=== PATIENT | male | born 1930 | race Caucasian/White ===

== ENCOUNTER 2017-06-30 16:08 | Inpatient (IN) ==
[2017-06-30] MEDS ORDERED: IOPAMIDOL 100 ML BOTTLE IJ ONE ×2 (16:09→22:11)
--- NOTE | 2017-06-30 16:27 | Emergency Department Note ---
GI Bleed HPI - History of Present Illness MD complaint: blood streaked stool Onset (ago): week(s) (2 weeks) <Guillermo Mares - Last Filed: 06/30/17 17:05> - General Source: patient, family, EMS Mode of arrival: EMS <Bob Ponce Inocencia - Last Filed: 07/01/17 06:58> - General Chief complaint: Rectal Bleed Stated complaint: n/v/d, bloody stools Time Seen by Provider: 06/30/17 16:22 - History of Present Illness HPI Narrative: This is an 87 year old male that is coming into the ER with c/o of bright red bleeding x 2 weeks as well as intermittent loss of vision x 3 days. Describes it as intermittent. denies abdominal pain .Denies diarrhea. Denies constipation. Denies hx of hemmorhoids, Crohns, UC, celiac, IBS, gastric ulcers or diverticulitis. Denies fevers, chills, night sweats, or unexpected weight loss. Positive for nausea. reports last colonoscopy was at about the age of 62. Patient reports had vision loss in left eye from thursday to this morning. can see fine without an issue currently at this moment. Was supposed to see his eye doctor today but didn't feel well. came into the ER via ambulance. (Guillermo Mares) - Related Data Home Medications Medication Instructions Recorded Confirmed aspirin 81 mg tablet,delayed 81 mg PO QDAY 11/08/15 06/09/17 release vitamin D, fish oil PO 11/08/15 06/09/17 Previous Rx's Medication Instructions Recorded albuterol sulfate HFA 90 2 inh INHALATION Q6H PRN #8.5 g 09/03/16 mcg/actuation aerosol inhaler atenolol 50 mg tablet 50 mg PO Q12H 90 Days #180 tab 12/29/16 lovastatin 20 mg tablet 20 mg PO QDAY 90 Days #90 tab 03/31/17 omeprazole 20 mg capsule,delayed 20 mg PO QDAY 90 Days #90 cap 05/05/17 release Allergies Allergy/AdvReac Type Severity Reaction Status Date / Time No Known Drug Allergies Allergy Verified 06/30/17 16:16 Review of Systems All systems ED: reviewed and negative except as stated. <Bob Ponce - Last Filed: 07/01/17 06:58> Past Medical History <Guillermo Mares - Last Filed: 06/30/17 17:05> - Social History smoking status: Former smoker <Bob Ponce - Last Filed: 07/01/17 06:58> - Past Medical History [facility] Narrative: Medical History Gastroesophageal reflux disease (Chronic) Hyperlipidemia (Chronic) Atherosclerotic heart disease (Chronic) Cerebrovascular disease (Chronic) Primary osteoarthritis of right knee (Acute) Abdominal aortic aneurysm (Chronic) Pneumonia (Chronic) Pancreatitis (Chronic) Neuropathy (Chronic 09/13/14) Lumbago (Chronic) Hypertension, essential (Chronic 09/13/14) CAD (coronary artery disease) (Chronic) Anemia (Chronic 11/10/14) Past Surgical History S/P CABG x 3 (Chronic) History of right-sided carotid endarterectomy (Chronic) History of left-sided carotid endarterectomy (Chronic) History of hernia repair (Chronic) History of cholecystectomy (Chronic 12/21/13) (Bob Ponce) Physical Exam - Rectal Exam Rectal exam: Present: heme (+) stool, bloody stool, tenderness <Guillermo Mares - Last Filed: 06/30/17 17:05> - General Limitations: no limitations General appearance: alert - Head Head exam: atraumatic - Eye Eye exam: Present: normal appearance - ENT ENT exam: normal exam - Neck Neck exam: Present: normal inspection - Chest Chest inspection: Present: normal inspection - Respiratory Respiratory exam: Present: normal lung sounds bilaterally - Cardiovascular Cardiovascular exam: Present: regular rate, normal rhythm, normal heart sounds - Abdominal Exam Abdominal exam: Present: soft, tenderness. Absent: distention, guarding, rebound, rigidity Abdominal tenderness: Present: diffuse, mild - Neurological Exam Neurological exam: Present: alert - Psychiatric Psychiatric exam: Present: normal affect, normal mood - Skin Skin exam: Present: warm, dry, intact <Bob Ponce - Last Filed: 07/01/17 06:58> Vital Signs Temperature 97.4 F 06/30/17 16:10 Pulse Rate 77 06/30/17 16:10 Respiratory Rate 16 06/30/17 16:10 Blood Pressure 199/90 06/30/17 16:10 Pulse Oximetry (%) 96 06/30/17 16:10 Temperature 98.1 F 07/01/17 03:50 Pulse Rate 75 07/01/17 03:50 Respiratory Rate 18 06/30/17 22:10 Blood Pressure 159/82 07/01/17 03:50 Pulse Oximetry (%) 99 07/01/17 03:50 GI Bleed - Lab Data Result diagrams: 06/30/17 16:24 06/30/17 16:23 <Guillermo Mares - Last Filed: 06/30/17 17:05> - Lab Data Lab results reviewed: Yes I reviewed the patient's lab results. Result diagrams: 07/01/17 03:35 07/01/17 03:35 - Radiology Data Radiology results reviewed: Yes I reviewed the patient's radiology results. <Bob Ponce - Last Filed: 07/01/17 06:58> - MDM Narrative Medical decision making narrative: CT scan shows suspicion for a sigmoid carcinoma. Patient's history is a little concerning for posterior circulation stroke. Symptoms started 2 days ago. He still continues to have some dizziness. We will admit him to the hospital Dr. Whaley. (Bob Ponce) - Lab Data Lab Results 06/30/17 06/30/17 Range/Units 16:23 16:24 WBC 9.1 (4.5-11.0) K/mcL RBC 3.21 L (4.50-5.90) M/mcL Hgb 10.9 L (13.5-16.5) g/dL Hct 31.6 L (41.0-55.0) % MCV 98.5 (80.0-100.0) fL MCH 33.8 (26.0-34.0) pg MCHC 34.3 (31.0-36.0) g/dL RDW 15.1 H (11.5-14.5) % Plt Count 210 (140-440) K/mcL MPV 8.8 (7.4-10.4) fL Gran % 87.9 H (38.0-78.0) % Lymph % (Auto) 8.7 L (15.5-49.0) % [place] % (Auto) 2.6 (1.0-12.0) % Eos % (Auto) 0.8 (0.0-7.0) % Baso % (Auto) 0 (0.0-2.0) % Gran # 8.0 (1.8-8.0) K/mcL Lymph # (Auto) 0.8 L (1.5-4.8) K/mcL [place] # (Auto) 0.2 (0.1-0.9) K/mcL Eos # (Auto) 0.1 (0.0-0.7) K/mcL Baso # (Auto) 0 (0.0-0.3) K/mcL Sodium 141 (133-145) mmol/L Potassium 4.6 (3.3-5.1) mmol/L Chloride 102 (96-108) mmol/L Carbon Dioxide 26 (22-30) mmol/L Anion Gap 13.0 (8-16) BUN 27 H (8-23) mg/dl Creatinine 1.0 (0.7-1.2) mg/dl GFR Calculation 68 Glucose 118 H (70-105) mg/dL Calcium 9.7 (8.6-10.4) mg/dl Total Bilirubin 0.4 (0.0-1.0) mg/dL AST 22 (0-37) U/l ALT 24 (0-40) U/l Alkaline Phosphatase 48 (39-117) U/L Total Protein 7.6 (5.9-8.4) gm/dL Albumin 4.2 (3.2-5.2) gm/dL Globulin 3.4 (2.2-3.7) gm/dL Albumin/Globulin Ratio 1.2 (1.0-2.3) Disposition Pt seen by EYEWEAR CONSULTANT/PA only: No <Guillermo Mares - Last Filed: 06/30/17 17:05> Pt seen by EYEWEAR CONSULTANT/PA only: No <Bob Ponce - Last Filed: 07/01/17 06:58> Clinical Impression: 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 Order labs(CBC, CMP c.) Order abdominal X ray (Guillermo Mares) Disposition: Xfer As Inpt ([facility]) Condition: Undetermined
[2017-06-30 16:48] LABS: Basophils # (Auto) 0 K/mcL (0.0-0.3); Basophils % (Auto) 0 % (0.0-2.0); Eosinophils # (Auto) 0.1 K/mcL (0.0-0.7); Eosinophils % (Auto) 0.8 % (0.0-7.0); Granulocytes % (Auto) 87.9 % (38.0-78.0); Lymphocytes # (Auto) 0.8 K/mcL (1.5-4.8); Lymphocytes % (Auto) 8.7 % (15.5-49.0); Mean Cell Volume 98.5 fL (80.0-100.0); Mean Corpuscular HGB Conc 34.3 g/dL (31.0-36.0); Mean Corpuscular Hemoglobin 33.8 pg (26.0-34.0); Monocytes # (Auto) 0.2 K/mcL (0.1-0.9); Monocytes % (Auto) 2.6 % (1.0-12.0); Platelet Count 210 K/mcL (140-440); RBC 3.21 M/mcL (4.50-5.90); Red Cell Distribution Width 15.1 % (11.5-14.5)
[2017-06-30 17:05] LABS: ALT/SGPT 24 U/l (0-40); Albumin 4.2 gm/dL (3.2-5.2); Albumin/Globulin Ratio 1.2 (1.0-2.3); Alkaline Phosphatase 48 U/L (39-117); Blood Urea Nitrogen 27 mg/dl (8-23)
[2017-06-30] MEDS ORDERED: ONDANSETRON 4 MG/2 ML VIAL IV ONE (17:21)
--- NOTE | 2017-06-30 17:24 | XRay Report ---
CLINICAL INFORMATION: Bloody stools COMPARISON: 12/20/2013 FINDINGS: The stool gas pattern is normal. There is no free air, soft tissue mass or organomegaly. Surgical clips in the upper abdomen. IMPRESSION: Negative Interpreted and Authenticated by: Jose Juárez 06/30/17
[2017-06-30] MEDS ORDERED: 0.9 % SODIUM CHLORIDE 1,000 ML IV ONE (18:05)
[2017-06-30] MEDS ORDERED: PROMETHAZINE 25 MG/ML VIAL IV ONE (18:58)
[2017-06-30] MEDS ORDERED: PROMETHAZINE 50 MG/ML AMPUL IM ONE (19:08)
--- NOTE | 2017-06-30 21:21 | Internal Med History&Physical ---
Medical - H&P: HPI Patient information: Note initiated : 06/30/17 at 9:18 pm Service Date, if different from initiated Date: [] Patient: Lele Terrell 87 y/o M admitted on for n/v/d, bloody stools. Chief Complaint: [] Chief complaint: Dizziness, rectal bleeding. History of present illness: Mr. Terrell is a 87 year old man with a past history of coronary disease and cerebrovascular disease, status post stroke in 2000, who was in his normal state of health until 2 days prior to admission. That morning when he got up and looked in the mirror, he said he could not see the left side of his face. He thought there was something wrong with the vision in his left eye. He was subsequently evaluated at an emergency room in [facility]. They apparently did a dry head CT, and decided that he may have had amaurosis fugax or other eye specific problem. They advised him to follow-up with his eye doctor. Since that time, he has had ongoing intermittent episodes of what he describes as blurry vision, which she thinks is in the left visual field, and also dizziness and nausea. He cannot decide if he has vertigo or not, but says he definitely has been off balance and has felt lightheaded. This morning, he again had worsening dizziness associated with 4 episodes of nausea and vomiting. His family insisted that he come to the emergency room for evaluation. He also notes that he is having some occasional symptoms in his left eye on and off for about 20 years, mainly including squiggly lines. As he is checked by an eye doctor annually. He actually went to a football game after his ER visit, and says he did fine. However when it came to drive home from [place] back to [place], he decided he might not be safe to drive, so had 1 of his children come and get him. When he presented to the emergency room this evening, he also discussed that he had been seeing blood in his stools. He ended up having a CT scan of his abdomen, which shows a possible mass in his sigmoid colon. When the attending physician then heard his entire story, he wanted to do a CT angiogram of the patient's head and neck, but by then he had already had IV dye once, and they felt it was la not to give him a second dose tonight. Otherwise, the patient is having continued episodes of dizziness, nausea and vomiting here in the emergency room, which has not been resolved with medications. He notes he occasionally has chills and night sweats, which she has had for a while. He has an occasional dull headache. Said he was treated for a cough about 2 weeks ago with antibiotics. Occasionally has some lower sternal discomfort which he blames on reflux. He otherwise denies new ear symptoms, sore throat or dysphagia, swollen glands, chest pain or palpitations, shortness of breath or wheezing, abdominal pain, diarrhea, constipation, dysuria. He is now being admitted for monitoring, regarding possible recent stroke. We will hydrate him overnight, and get CT angiograms in the morning. We will also attempt to control his nausea this evening. Also, because of his abnormal CAT scan, I have asked Dr. Robb of general surgery to evaluate him as well. Medical History Gastroesophageal reflux disease (Chronic) Hyperlipidemia (Chronic) Atherosclerotic heart disease (Chronic) Cerebrovascular disease, history of stroke in 2000, history of bilateral carotid endarterectomies. 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 Etiology, attends a neuropathy clinic in [place], "hot feet...for 20 years" Lumbago (Chronic) Hypertension, essential (Chronic 09/13/14) CAD (coronary artery disease), status post coronary artery bypass. Anemia (Chronic 11/10/14) Surgical History S/P CABG x 3 (Chronic) 2000 History of right-sided carotid endarterectomy (Chronic) 2009 History of left-sided carotid endarterectomy (Chronic) 2001 History of hernia repair (Chronic) x3 History of cholecystectomy (Chronic 12/21/13) Medication List albuterol sulfate HFA 90 mcg/actuation 2 inhalations Inhalation Q6H PRN aspirin 81 mg PO QDAY atenolol 50 mg PO Q12H 90 days lovastatin 20 mg PO QDAY 90 days omeprazole 20 mg PO QDAY 90 days [vitamin D, fish oil PO] Allergies/Adverse Reactions No Known Intolerances Allergy (Unknown, Verified 06/09/17 16:35) none No to Iodine Allergy (Unknown, Uncoded 06/09/17 16:35) Unknown No to Latex Allergy (Unknown, Uncoded 06/09/17 16:35) none NONE Allergy (Unknown, Uncoded 06/09/17 16:35) none Family history: Patient believes his mother had hypertension. His father committed suicide at age 55 after being diagnosed with a brain tumor. Other at age 55 with leukemia. Another brother at age 83 with multiple medical problems and diabetes. Third brother at age 91 with Alzheimer's disease. Social History marital status: ,occupational status: retired smoking status: Former smoker, he quit 53 years ago. Does not use alcohol or drugs. He lives with his . Medical - H&P: Meds Home Medications Medication Instructions Recorded Confirmed Type aspirin 81 mg tablet,delayed 81 mg PO QDAY 11/08/15 06/09/17 History release vitamin D, fish oil PO 11/08/15 06/09/17 History albuterol sulfate HFA 90 2 inh INHALATION Q6H PRN #8.5 g 09/03/16 06/09/17 Rx mcg/actuation aerosol inhaler atenolol 50 mg tablet 50 mg PO Q12H 90 Days #180 tab 12/29/16 06/09/17 Rx lovastatin 20 mg tablet 20 mg PO QDAY 90 Days #90 tab 03/31/17 06/09/17 Rx omeprazole 20 mg capsule,delayed 20 mg PO QDAY 90 Days #90 cap 05/05/17 Rx release Allergies Allergy/AdvReac Type Severity Reaction Status Date / Time No Known Drug Allergies Allergy Verified 06/30/17 16:16 Medical - H&P: Exam - Constitutional Vitals: Temp Pulse Resp BP Pulse Ox 97.4 F 72 15 121/50 100 06/30/17 16:10 06/30/17 20:48 06/30/17 18:46 06/30/17 20:46 06/30/17 20:48 On exam, he is a well-developed well-nourished elderly man in no acute distress. Head: Normocephalic, atraumatic. Eyes: Pupils are about 3 mm, and only sluggishly reactive to light. EOMI, anicteric. Ears: TMs and canals are clear. Pharynx: Is clear. Teeth are in good repair. Neck: Is supple, without obvious lymphadenopathy, JVD, thyromegaly. He does have bilateral carotid bruits, which may be radiating from his heart murmur. He has bilateral CEA scars. Cardiac: Shows regular rate and rhythm with normal S1 and S2. There is a 3 out of 6 to 4 out of 6 systolic ejection murmur heard throughout the precordium. No rubs or gallops are noted. Lungs: Are clear to auscultation, without rales, rhonchi, wheezes. Abdomen: Is soft and nontender without obvious masses. I did not hear bruits or feel a mass. Extremities: Show trace ankle edema, but no cyanosis or clubbing. Pulses are intact. Neurologic: Patient is alert and oriented 3. He seems a bit forgetful at times. Mood is calm and cooperative. Cranial nerves: Appear intact. Visual mack appear full to confrontation. Motor exam is grossly nonfocal. Medical - H&P: Reslt - Labs CBC & Chem 7: 06/30/17 16:24 06/30/17 16:23 Labs: Short CBC 06/30/17 Range/Units 16:24 WBC 9.1 (4.5-11.0) K/mcL Hgb 10.9 L (13.5-16.5) g/dL Hct 31.6 L (41.0-55.0) % Plt Count 210 (140-440) K/mcL BMP 06/30/17 16:23 Sodium 141 Potassium 4.6 Chloride 102 Carbon Dioxide 26 BUN 27 H Creatinine 1.0 Glucose 118 H Calcium 9.7 Liver Function 06/30/17 Range/Units 16:23 Total Bilirubin 0.4 (0.0-1.0) mg/dL AST 22 (0-37) U/l ALT 24 (0-40) U/l Alkaline Phosphatase 48 (39-117) U/L Albumin 4.2 (3.2-5.2) gm/dL CT of the abdomen and pelvis: By verbal report, shows sigmoid mass, and also possible thickening of either the stomach or the distal esophagus.. Abdominal x-ray: Was read as normal. EKG shows normal sinus rhythm rate of about 75. T waves are inverted inferiorly. T waves are somewhat hyper acute in leads V2 to V3. We do not seem to have an old tracing to compare. Dry head CT done in [place] about 2 days ago was reported as normal. Medical - H&P: A/P (1) Sigmoid thickening Current visit: Yes Status: Acute (2) Dizziness, nonspecific Current visit: Yes Status: Acute (3) Atherosclerotic heart disease Current visit: No Status: Chronic (4) Cerebrovascular disease Current visit: No Status: Chronic (5) Hypertension, essential Current visit: No Status: Chronic (6) Anemia Current visit: No Status: Acute - Narrative A/P Narrative: #1. Neurologic. This patient presents with subacute change in vision, associated with dizziness and nausea. Symptoms are ongoing. Symptoms did not resolve in the ER. The ER physician wanted to do further stroke workup, but the patient had already received IV dye for his GI study. -We will admit him to observation, and monitor on telemetry. -Hydrate overnight, and then consider CT angiogram of the neck and brain in the morning. -Patient has known previous carotid disease, status post endarterectomy. 2. GI. Patient presents with rectal bleeding, and new onset anemia. Abdominal CT reportedly shows a sigmoid mass. I have asked Dr. Robb of surgery to evaluate him in the morning. -Check follow-up labs, and transfuse if he drops significantly. Because of coronary history, we would want to keep his hemoglobin above 8. History of GERD. Continue omeprazole. 3. Cardiac. History of coronary disease. Continue aspirin, atenolol, lovastatin. Aspirin may need to be held if Dr. Robb decides to do any surgeries. 4. CODE STATUS: 5. DVT prophylaxis: Subcu heparin, unless bleeding becomes more of an issue. 6. Pulmonary.? History of asthma. Continue as needed albuterol. This visit took approximately 60 minutes, to review the patient's old records, review his case with the ER MD, interview and examine him, and write orders.
[2017-06-30] MEDS ORDERED: ACETAMINOPHEN 325 MG TABLET PO PRN (22:25)
[2017-06-30] MEDS ORDERED: ALBUTEROL SULFATE 2.5 MG/3 ML NEBULIZER NEB PRN (22:25)
[2017-06-30] MEDS ORDERED: MAGNESIUM HYDROXIDE 30 ML ORAL.SUSP PO PRN (22:25)
[2017-06-30] MEDS ORDERED: DOCUSATE SODIUM 100 MG CAPSULE PO PRN (22:25)
[2017-06-30] MEDS ORDERED: ONDANSETRON 4 MG/2 ML VIAL ONE (22:43)
[2017-06-30] MEDS: HEPARIN 5,000 UNIT/ML VIAL SQ SCH (23:55)
[2017-06-30] MEDS: POTASSIUM CHLORIDE 20 MEQ in 0.45 % SODIUM CHLORIDE 1,000 ML IV SCH (23:56)
[2017-07-01] MEDS ORDERED: POTASSIUM CHLORIDE 20 MEQ/10 ML VIAL IV ONE (00:01)
[2017-07-01 05:17] LABS: Basophils # (Auto) 0 K/mcL (0.0-0.3); Basophils % (Auto) 0.1 % (0.0-2.0); Eosinophils # (Auto) 0 K/mcL (0.0-0.7); Eosinophils % (Auto) 0.6 % (0.0-7.0); Granulocytes % (Auto) 74.7 % (38.0-78.0); Lymphocytes % (Auto) 16.7 % (15.5-49.0); Mean Cell Volume 98.9 fL (80.0-100.0); Mean Corpuscular HGB Conc 33.3 g/dL (31.0-36.0); Monocytes # (Auto) 0.5 K/mcL (0.1-0.9); Monocytes % (Auto) 7.9 % (1.0-12.0); Platelet Count 195 K/mcL (140-440); Red Cell Distribution Width 14.9 % (11.5-14.5)
[2017-07-01 05:38] LABS: C-Reactive Protein < 0.3 mg/dl (0.0-0.8); HDL Cholesterol 41 mg/dl (>40); LDL Cholesterol,Calculated 63 mg/dl (SEE CHART)
[2017-07-01 05:39] LABS: ALT/SGPT 18 U/l (0-40); Albumin 3.5 gm/dL (3.2-5.2); Albumin/Globulin Ratio 1.3 (1.0-2.3); Alkaline Phosphatase 40 U/L (39-117); Bilirubin,Direct < 0.2 mg/dL (0.0-0.3); Blood Urea Nitrogen 22 mg/dl (8-23); Gamma Glutamyl Transpeptidase 15 U/L (8-61)
[2017-07-01] MEDS: HEPARIN 5,000 UNIT/ML VIAL SQ SCH ×2 (07:14→21:34)
[2017-07-01] MEDS: ONDANSETRON 4 MG/2 ML VIAL IV PRN (07:14)
--- NOTE | 2017-07-01 10:25 | XRay Report ---
CLINICAL INFORMATION: Preop COMPARISON: 10/16/2016 FINDINGS: Sternotomy/CABG changes noted. The heart is borderline enlarged, but unchanged. Mediastinum and pulmonary vessels are normal. Lungs are clear. No effusions. IMPRESSION: No acute disease is - stable since 10/16/2016 stable Interpreted and Authenticated by: Jose Juárez 07/01/17
--- NOTE | 2017-07-01 13:01 | Cat Scan Report ---
CLINICAL INFORMATION: Mild GI bleeding COMPARISON: Abdomen and pelvic CT from 02/06/2010 TECHNIQUE: Oral contrast, MR view, was poorly tolerated by the patient with a small amount was ingested. 90 cc to 300 were injected intravenously and 2.5 mm helical slices were obtained from the mid heart through the subtrochanteric regions at both 20 and 70 seconds. Following reconstruction, sagittal, coronal axial reformatted images were processed and reviewed at soft tissue and bone windows. Coronal mip images were also processed. FINDINGS: Lung bases show scattered scarring and/or atelectasis. There is a 20 mm pleural-based nodule in the lingular region which is new. There is also an 11 mm granuloma in the paramediastinal right middle lobe region which is stable. The heart is mildly enlarged with heavy calcification of mitral annulus and small amounts in the aortic valve. There is no definite hiatal hernia. The distal esophagus is unremarkable Images through the abdomen show minimal fatty change within the liver. The gallbladder is surgically absent. Intrahepatic and common bile ducts are normal caliber: CBD is 5 mm. Both kidneys, adrenal glands, spleen, pancreas are normal. Fusiform infrarenal abdominal aortic aneurysm has decreased 3.5 to 3.9 cm in maximal diameter since the 2010 study. There is heavy calcific plaque in the origins of the celiac, SMA and KEVIN which preclude stenosis grading. Images through the pelvis show the prostate is mildly enlarged: 4.6 x 5.2 x 3.7 cm. There are small diverticuli projecting from the lateral bladder base regions. Bladder is otherwise normal. Multiple sigmoid diverticuli appreciated. There is a 3.3 cm soft tissue density within the lumen of the mid sigmoid colon which is likely adherent stool rather than a mass such as colon carcinoma. Follow-up colonoscopy performed to confirm. The remainder of the colon, including the appendix, small bowel and stomach are unremarkable. Bone windows show only degenerative changes of the lower lumbar spine IMPRESSION: 1. No definite etiology identified to account for GI blood loss. A 3.3 cm intraluminal soft tissue density in the mid sigmoid colon is more likely stool than colon carcinoma. Follow-up colonoscopy to be performed 2. Infrarenal fusiform abdominal aortic aneurysm. Maximal AP diameter has increased from 3.5 cm a 3.9 cm [address] the [address] CT. consider follow ultrasound in one year 3. Mild prostate enlargement - stable 4. 20 mm well-circumscribed nodule in the lingula - new. It is likely a granuloma. Suggest follow-up chest x-ray in 3-4 months. Interpreted and Authenticated by: Jose Juárez 07/01/17
--- NOTE | 2017-07-01 13:10 | General Surgery Consult Note ---
History of Present Illness Patient information: Note initiated : 07/01/17 at 1:04 pm Service Date, if different from initiated Date: [] Patient: Lele Terrell 87 y/o M admitted on 06/30/17 for N/V/D, Bloody Stools/Lower GI Bleed, Poss Stroke. Chief Complaint: [] Reason for consult: other (Rectal bleeding) Requesting physician: Thania Thompson History of present illness: 87-year-old male who presents with a two-week history of lower abdominal pain. He also has had bright red blood in the stool about the same time. He has had 3 episodes of bright red blood in his stool since then. The last episode of bleeding was yesterday. He states that his stools are loose. He does not have pain with his bowel movements but he does notice some diffuse lower abdominal discomfort. He has a known history of diverticulosis with possible diverticulitis in the past. He had a CT of the abdomen which showed a possible mid sigmoid mass and extensive diverticulosis without evidence of diverticulitis. The CT also suggests that he has thickening at the GE junction and in the stomach that should need evaluation to rule out neoplasm. The patient has a history of chronic anemia which has not been evaluated. The patient states that on Thursday morning he noticed in the mirror that he could not see one half of his face. He was in [place] at the time and was seen in the emergency room and was told that he had some type of visual abnormality related to his left eye. Patient states that after leaving the emergency room he was able to see him for football game without difficulty. He did not have any mental lapses and he has not noticed any motor weakness in upper or lower extremities or in his face. He has had dizziness which started on yesterday. He attributes this to vertigo and states that he has had in the past. Associated with the vertigo he has episodes of nausea and vomiting. The vertigo appears to be positional and is reproducible. He had a normal CT and [place] and is scheduled to have a follow-up CT later today. Review of Systems - Constitutional lethargy, weight loss (5 pound weight loss), no fatigue, no frequent falls, no headache(s), no weakness - EENT Nose, mouth and throat: abnormal hearing, disequilibrium, dizziness, vertigo, no headache(s) - Cardiovascular lightheadedness, no chest pain at rest, no chest pain with activity, no dyspnea , no irregular heart rhythm, no palpatations, no slow heart rate - Respiratory no dyspnea, no dyspnea on exertion, no wheezing, no chest congestion - Gastrointestinal abdominal pain, change in bowel habits, diarrhea, hematochezia, loose stools, nausea, vomiting, no melena - Genitourinary urinary frequency, urinary urgency - Musculoskeletal arthralgias, back pain, myalgias, stiffness - Integumentary no changing lesions, no non-healing lesions, no pruritus, no rash - Neurological disequilibrium, dizziness, loss of vision, vertigo, other visual disturbances, no abnormal hearing, no abnormal speech, no confusion - Psychiatric no anxiety, no confusion, no depression, no memory loss - Endocrine no fatigue, no flushing, no polyuria - Hematologic/Lymphatic no easy bleeding, no easy bruising, no lymphadenopathy - Allergic/Immunologic no tongue swelling, no throat swelling, no uticaria, no wheezing, no lip swelling Past History Past medical history: Coronary artery disease status post three-vessel bypass Hypertension Peripheral neuropathy Abdominal aortic aneurysm 3.8 cm Gastroesophageal reflux disease Osteoarthritis Low back pain Chronic anemia Past surgical history: Coronary artery bypass graft 3 Cholecystectomy Bilateral inguinal hernia Bilateral carotid endarterectomy Past family history: Former smoker Denies alcohol use Denies drug use Medications and Allergies Home Medications Medication Instructions Recorded Confirmed Type aspirin 81 mg tablet,delayed 81 mg PO QDAY 11/08/15 07/01/17 History release albuterol sulfate HFA 90 2 inh INHALATION Q6H PRN #8.5 g 09/03/16 06/09/17 Rx mcg/actuation aerosol inhaler atenolol 50 mg tablet 50 mg PO Q12H 90 Days #180 tab 12/29/16 07/01/17 Rx lovastatin 20 mg tablet 20 mg PO QDAY 90 Days #90 tab 03/31/17 07/01/17 Rx omeprazole 20 mg capsule,delayed 20 mg PO QDAY 90 Days #90 cap 05/05/17 Rx release Acetaminophen [Tylenol] 650 mg PO Q4HP PRN 07/01/17 07/01/17 History Acetylcarnitine [Acetyl 1,000 mg PO DAILY 07/01/17 07/01/17 History l-Carnitine] Alpha Lipoic Acid 2 tab PO DAILY 07/01/17 07/01/17 History Black Finnegan Concentrate 2 cap PO DAILY 07/01/17 07/01/17 History Cider Vinegar [Apple Cider Vinegar] 900 mg PO DAILY 07/01/17 07/01/17 History Cyanocobalamin/Cobamamide [B-12 1 tab SL DAILY 07/01/17 07/01/17 History 5,000 Mcg Sublingual Tab] Cyanocobalamin/FA/Pyridoxine [B 1 tab PO DAILY 07/01/17 07/01/17 History Complex-Folic Acid Tablet] Gnc Herbal Plus Energy Formula 1 - 2 cap PO DAILY 07/01/17 07/01/17 History Gnc Scar Men 50 Plus 2 cap PO DAILY 07/01/17 07/01/17 History Ibuprofen [I-Prin] 400 mg PO PRN PRN 07/01/17 07/01/17 History [facility] Pure Wellness Factors 4 cap PO DAILY 07/01/17 07/01/[address] Savage Advanced 3 cap PO DAILY 07/01/17 07/01/17 History [place]-3/Dha/Epa/Fish Oil [Fish Oil 2 cap PO DAILY 07/01/17 07/01/17 History 1,000 mg Softgel] Papaya 2 each PO DAILY 07/01/17 07/01/17 History Ubidecarenone [Co Q-10] 400 mg PO DAILY 07/01/17 07/01/17 History Allergies Allergy/AdvReac Type Severity Reaction Status Date / Time No Known Drug Allergies Allergy Verified 06/30/17 16:16 Exam Temp Pulse Resp BP Pulse Ox 97.6 F 65 18 169/93 93 07/01/17 11:39 07/01/17 08:00 07/01/17 12:14 07/01/17 12:14 07/01/17 12:14 - General physical appearance well developed, well nourished, no distress - Eyes PERRL, normal ocular movement, other (I cannot detect any visual field defects) - ENT normal pinna, normal nares, normal mucosa, no hearing loss, no congestion - Head Head exam IM: Present: atraumatic, normal inspection, normocephalic - Neck no masses, no bruits, trachea midline, no lymphadectomy, no venous distension - Cardiovascular Cardiovascular exam IM: Present: normal rate and rhythm, RRR, +S1, +S2, systolic murmur (Grade 1 systolic ejection murmur). Absent: gallop, JVD, rubs - Respiratory normal expansion, normal respiratory effort, clear to percussion, clear to auscultation - Abdomen Abdomen: Present: soft, tender (Mild tenderness in lower quadrant right and suprapubic area; no left lower quadrant tenderness or mass noted), bowel sounds Hernia: Present: none - Genitourinary Present: normal penis with no external lesions - Rectum Rectum: Present: normal sphincter tone, no hemorrhoids, no tenderness, no masses , no bleeding, other (No palpable masses stool guaiac positive) - Integumentary Present: no rash, no growths, no abnormal pigmentation - Neurologic Present: normal coordination, normal sensation, other (No focal motor deficit in upper or lower extremities; no facial asymmetry; no sensory asymmetry) - Musculoskeletal Present: normal gait, normal posture - Psychiatric Present: oriented to time, oriented to person, oriented to place, speech is normal, memory intact Results - Labs 07/01/17 03:35 07/01/17 03:35 Abnormal lab results 06/30/17 06/30/17 07/01/17 Range/Units 16:23 16:24 03:35 RBC 3.21 L 2.80 L (4.50-5.90) M/mcL Hgb 10.9 L 9.2 L (13.5-16.5) g/dL Hct 31.6 L 27.7 L (41.0-55.0) % RDW 15.1 H 14.9 H (11.5-14.5) % Gran % 87.9 H (38.0-78.0) % Lymph % (Auto) 8.7 L (15.5-49.0) % Lymph # (Auto) 0.8 L 1.0 L (1.5-4.8) K/mcL ESR (0-15) mm/hr BUN 27 H (8-23) mg/dl Glucose 118 H (70-105) mg/dL 07/01/17 Range/Units 03:35 RBC (4.50-5.90) M/mcL Hgb (13.5-16.5) g/dL Hct (41.0-55.0) % RDW (11.5-14.5) % Gran % (38.0-78.0) % Lymph % (Auto) (15.5-49.0) % Lymph # (Auto) (1.5-4.8) K/mcL ESR 24 H (0-15) mm/hr BUN (8-23) mg/dl Glucose (70-105) mg/dL Diabetes panel 06/30/17 07/01/17 07/01/17 Range/Units 16:23 03:35 03:35 Sodium 141 141 (133-145) mmol/L Potassium 4.6 4.4 (3.3-5.1) mmol/L Chloride 102 105 (96-108) mmol/L Carbon Dioxide 26 25 (22-30) mmol/L BUN 27 H 22 (8-23) mg/dl Creatinine 1.0 0.9 (0.7-1.2) mg/dl Glucose 118 H 100 (70-105) mg/dL Calcium 9.7 8.9 (8.6-10.4) mg/dl AST 22 18 (0-37) U/l ALT 24 18 (0-40) U/l Alkaline Phosphatase 48 40 (39-117) U/L Total Protein 7.6 6.1 (5.9-8.4) gm/dL Albumin 4.2 3.5 (3.2-5.2) gm/dL Triglycerides 123 124 (<150) mg/dl HDL Cholesterol 41 (>40) mg/dl Calcium panel 06/30/17 07/01/17 Range/Units 16:23 03:35 Calcium 9.7 8.9 (8.6-10.4) mg/dl Phosphorus 3.6 (2.7-4.5) mg/dL Albumin 4.2 3.5 (3.2-5.2) gm/dL Pituitary panel 06/30/17 07/01/17 Range/Units 16:23 03:35 Sodium 141 141 (133-145) mmol/L Potassium 4.6 4.4 (3.3-5.1) mmol/L Chloride 102 105 (96-108) mmol/L Carbon Dioxide 26 25 (22-30) mmol/L BUN 27 H 22 (8-23) mg/dl Creatinine 1.0 0.9 (0.7-1.2) mg/dl Glucose 118 H 100 (70-105) mg/dL Calcium 9.7 8.9 (8.6-10.4) mg/dl Adrenal panel 06/30/17 07/01/17 Range/Units 16:23 03:35 Sodium 141 141 (133-145) mmol/L Potassium 4.6 4.4 (3.3-5.1) mmol/L Chloride 102 105 (96-108) mmol/L Carbon Dioxide 26 25 (22-30) mmol/L BUN 27 H 22 (8-23) mg/dl Creatinine 1.0 0.9 (0.7-1.2) mg/dl Glucose 118 H 100 (70-105) mg/dL Calcium 9.7 8.9 (8.6-10.4) mg/dl Total Bilirubin 0.4 0.3 (0.0-1.0) mg/dL AST 22 18 (0-37) U/l ALT 24 18 (0-40) U/l Alkaline Phosphatase 48 40 (39-117) U/L Total Protein 7.6 6.1 (5.9-8.4) gm/dL Albumin 4.2 3.5 (3.2-5.2) gm/dL All other labs normal. Assessment and Plan (1) Rectal bleeding Patient will need to have upper and lower endoscopy. He will also need to have a bowel prep prior to the studies being done. I will await until a decision has been made about his possible neurologic deficit. Status: Acute (2) Sigmoid thickening To be followed up with colonoscopy Status: Acute (3) CAD (coronary artery disease) Status: Chronic Qualifiers: Coronary Disease-Associated Artery/Lesion type: unspecified vessel or lesion type [place] vs. transplanted heart: [place] heart Associated angina: without angina Qualified Code(s): I25.10 - Atherosclerotic heart disease of [place] coronary artery without angina pectoris (4) Gastroesophageal reflux disease Status: Chronic Qualifiers: Esophagitis presence: esophagitis presence not specified Qualified Code(s) : K21.9 - Gastro-esophageal reflux disease without esophagitis (5) Hypertension, essential Status: Chronic
--- NOTE | 2017-07-01 13:14 | Internal Med Progress Note ---
Medical - PN: Subj Patient information: Note initiated : 07/01/17 at 1:14 pm Service Date, if different from initiated Date: [] Patient: Lele Terrell 87 y/o M admitted on 06/30/17 for N/V/D, Bloody Stools/Lower GI Bleed, Poss Stroke. Chief Complaint: [] Interval history: June 30, 2017: History of present illness: Mr. Terrell is a 87 year old man with a past history of coronary disease and cerebrovascular disease, status post stroke in 2000, who was in his normal state of health until 2 days prior to admission. That morning when he got up and looked in the mirror, he said he could not see the left side of his face. He thought there was something wrong with the vision in his left eye. He was subsequently evaluated at an emergency room in [facility]. They apparently did a dry head CT, and decided that he may have had amaurosis fugax or other eye specific problem. They advised him to follow-up with his eye doctor. Since that time, he has had ongoing intermittent episodes of what he describes as blurry vision, which she thinks is in the left visual field, and also dizziness and nausea. He cannot decide if he has vertigo or not, but says he definitely has been off balance and has felt lightheaded. This morning, he again had worsening dizziness associated with 4 episodes of nausea and vomiting. His family insisted that he come to the emergency room for evaluation. He also notes that he is having some occasional symptoms in his left eye on and off for about 20 years, mainly including squiggly lines. As he is checked by an eye doctor annually. He actually went to a football game after his ER visit, and says he did fine. However when it came to drive home from [place] back to [place], he decided he might not be safe to drive, so had 1 of his children come and get him. When he presented to the emergency room this evening, he also discussed that he had been seeing blood in his stools. He ended up having a CT scan of his abdomen, which shows a possible mass in his sigmoid colon. When the attending physician then heard his entire story, he wanted to do a CT angiogram of the patient's head and neck, but by then he had already had IV dye once, and they felt it was la not to give him a second dose tonight. Otherwise, the patient is having continued episodes of dizziness, nausea and vomiting here in the emergency room, which has not been resolved with medications. He notes he occasionally has chills and night sweats, which she has had for a while. He has an occasional dull headache. Said he was treated for a cough about 2 weeks ago with antibiotics. Occasionally has some lower sternal discomfort which he blames on reflux. He otherwise denies new ear symptoms, sore throat or dysphagia, swollen glands, chest pain or palpitations, shortness of breath or wheezing, abdominal pain, diarrhea, constipation, dysuria. He is now being admitted for monitoring, regarding possible recent stroke. We will hydrate him overnight, and get CT angiograms in the morning. We will also attempt to control his nausea this evening. Also, because of his abnormal CAT scan, I have asked Dr. Robb of general surgery to evaluate him as well. July 01: Patient believes his vision is better today, but he is still having some intermittent lightheadedness. He still has a slight headache. Radiology had sent the patient could not have a follow-up CT scan with dye for 24-48 hours, so we ordered an MR angiogram instead. Unfortunately the patient has severe claustrophobia, and could not tolerate being in the scanner very long, in spite of receiving IV Ativan. The images that were obtained did show both the right cerebellar and a right occipital infarct. They were not able to complete the imaging. These were suggestive of a posterior circulation problem. - Constitutional Vitals: Vital Signs Temp Pulse Resp BP Pulse Ox 97.6 F 65 18 169/93 93 07/01/17 11:39 07/01/17 08:00 07/01/17 12:14 07/01/17 12:14 07/01/17 12:14 Period Temp Pulse Resp BP Sys/Mcnamara Pulse Ox Last 24 Hr 97.4 F-98.1 F 65-86 15-22 121-199/50-101 85-100 Intake and Output 06/30/17 07/01/17 07/01/17 21:59 05:59 13:59 Intake Total 1000 / 1000 Output Total 650 / 650 Balance 1000 / 1000 -650 / -650 Weight 170 lb 188 lb 3.2 oz Intake & Output: Intake & Output 06/30/17 07/01/17 07/01/17 21:59 05:59 13:59 Intake Total 1000 / 1000 Output Total 650 / 650 Balance 1000 / 1000 -650 / -650 Weight 170 lb 188 lb 3.2 oz Intake: IV 1000 / 1000 Sodium Chloride 0.9% 1,000 ml @ 1000 / 1000 Wide Open IV BOLUS ONE Rx#: [id number] Output: Void Amount 650 / 650 This morning, he was awake and alert, in no acute distress. Neck is supple without obvious lymphadenopathy. Lungs are clear to auscultation. Cardiac exam shows regular rate and rhythm. Abdomen is soft and nontender. Extremities show no edema. Neurologic exam: Patient is alert and oriented, calm and cooperative. Vision to confrontation and peripheral mack appears fairly normal. Cranial nerves are grossly intact. Motor exam is grossly intact. Medical - PN: Obj Da - Labs CBC & Chem 7: 07/01/17 03:35 07/01/17 03:35 Labs: Abnormal Lab Results 07/01/17 07/01/17 06/30/17 03:35 03:35 16:24 RBC 2.80 L 3.21 L Hgb 9.2 L 10.9 L Hct 27.7 L 31.6 L RDW 14.9 H 15.1 H Gran % 87.9 H Lymph % (Auto) 8.7 L Lymph # (Auto) 1.0 L 0.8 L ESR 24 H BUN Glucose 06/30/17 16:23 RBC Hgb Hct RDW Gran % Lymph % (Auto) Lymph # (Auto) ESR BUN 27 H Glucose 118 H July 1: Pro time is normal at 13, PTT normal at 29 Total cholesterol is 128, LDL 63, HDL 41, triglycerides 120 MRI/MRA: (Partial): Formal report is pending. Verbal report indicates right occipital and right cerebellar infarcts. Both posterior circulation infarcts. Echocardiogram: Results pending. CEA is normal at 2.1 June 30: CT of the abdomen and pelvis: IMPRESSION: 1. No definite etiology identified to account for GI blood loss. A 3.3 cm intraluminal soft tissue density in the mid sigmoid colon is more likely stool than colon carcinoma. Follow-up colonoscopy to be performed 2. Infrarenal fusiform abdominal aortic aneurysm. Maximal AP diameter has increased from 3.5 cm a 3.9 cm since the [address] CT. consider follow ultrasound in one year 3. Mild prostate enlargement - stable 4. 20 mm well-circumscribed nodule in the lingula - new. It is likely a granuloma. Suggest follow-up chest x-ray in 3-4 months. Abdominal x-ray: Was read as normal. EKG shows normal sinus rhythm rate of about 75. T waves are inverted inferiorly. T waves are somewhat hyper acute in leads V2 to V3. We do not seem to have an old tracing to compare. Dry head CT done in [place] about 2 days ago was reported as normal. Chest x-ray: Sternotomy and CABG changes noted. Borderline cardiomegaly. Stable. Meds: Medications Acetaminophen (Tylenol) 650 mg PO Q6HP PRN PRN Reason: PAIN/FEVER > 101 Albuterol Sulfate (Ventolin) 2.5 mg NEB Q4HRT PRN PRN Reason: Shortness Of Breath Or Wheezing Docusate Sodium (Colace) 100 mg PO BID PRN PRN Reason: Constipation Heparin Sodium (Porcine) (Heparin) 5,000 unit SQ Q12 [facility] Last Admin: 07/01/17 07:14 Dose: 5,000 unit Potassium Chloride 20 meq/ (Sodium Chloride) 1,010 mls @ 75 mls/hr IV .[id number] [facility] Last Admin: 06/30/17 23:56 Dose: 75 mls/hr Magnesium Hydroxide (Milk Of Magnesia) 30 ml PO DAILYP PRN PRN Reason: Constipation Ondansetron HCl (Zofran) 4 mg IV Q4HP PRN PRN Reason: Nausea And Vomiting Last Admin: 07/01/17 07:14 Dose: 4 mg Promethazine HCl (Phenergan) 12.5 mg IV Q4-6HP PRN PRN Reason: Nausea And Vomiting Medical - PN: A/P - Time Spent With Patient Total time spent is greater than 50% in coordination of care (as documented) at patient's floor/unit and/or counseling patient: Greater than 35 minutes (1) Sigmoid thickening Status: Acute Current Visit: Yes (2) Dizziness, nonspecific Status: Acute Current Visit: Yes (3) Atherosclerotic heart disease Status: Chronic Current Visit: No (4) Cerebrovascular disease Status: Chronic Current Visit: No (5) Hypertension, essential Status: Chronic Current Visit: No (6) Anemia Status: Acute Current Visit: No - Narrative A/P Narrative: #1. Neurologic. This patient presents with subacute change in vision, associated with dizziness and nausea. -MRI today does confirm at least 2 acute strokes, and the right cerebellum and the right occipital lobe. MRI could not be completed due to patient's anxiety. We will attempt to do CT angiogram of the head and neck tomorrow, to get a more complete picture. I reviewed the findings this evening with the patient and his son and daughter- in-law. We will continue with aspirin, and Plavix to try to prevent further strokes, pending workup. 2. GI. Patient presents with rectal bleeding, and new onset anemia. Abdominal CT reportedly shows a sigmoid mass. Dr. Robb saw him today. Patient will require upper and lower endoscopy, once neurologic status is stable. History of GERD. Continue omeprazole. 3. Cardiac. History of coronary disease. Continue aspirin, atenolol, lovastatin. Aspirin may need to be held if Dr. Robb decides to do any surgeries. 4. CODE STATUS: 5. DVT prophylaxis: Subcu heparin, unless bleeding becomes more of an issue. 6. Pulmonary.? History of asthma. Continue as needed albuterol. Approximately 40 minutes was spent today, reviewing patient's test results, interviewing and examining him, meeting with the patient and his family twice, reviewing plan of care with staff, and writing orders. Medical - PN: Qual - VTE Deep Vein Thrombosis/Pulmonary Embolism Present on Admission: No
[2017-07-01] MEDS: PROMETHAZINE 25 MG/ML VIAL IV PRN (13:41)
[2017-07-01] MEDS: POTASSIUM CHLORIDE 20 MEQ in 0.45 % SODIUM CHLORIDE 1,000 ML IV SCH (13:41)
[2017-07-01] MEDS ORDERED: LORazepam 2 MG/ML VIAL IV ONE ×2 (15:41→16:20)
[2017-07-01] MEDS ORDERED: LORazepam 2 MG/ML VIAL ONE (15:42)
[2017-07-01] MEDS ORDERED: METOPROLOL TARTRATE 5 MG/5 ML VIAL IV PRN (17:09)
--- NOTE | 2017-07-01 19:11 | Magnetic Resonance Report ---
CLINICAL INFORMATION: Posterior circulation stroke symptoms incoordination and loss of vision: COMPARISON: None. TECHNIQUE: Diffusion and ADC images were obtained. The 3-D SPGR images could not be completed due to excessive patient motion and patient uncooperation. FINDINGS: There is a 3.3 cm region of restricted diffusion involving the inferior right cerebellar vermis with 4-5 tiny satellite regions of diffusion restriction compatible with acute nonhemorrhagic infarct in the right posterior inferior cerebellar artery distribution. A second 2.5 cm region of restricted diffusion is present in the inferior right occipital lobe. A third 6 mm region of restricted diffusion is seen more superiorly in the right occipital cortex. Findings are compatible with acute nonhemorrhagic infarct - all in the the right posterior arterial vascular territory IMPRESSION: Scattered nonhemorrhagic acute infarcts in the right posterior arterial distribution: 3.3 cm the inferior right cerebellar vermis is 4-5 small satellite foci (PICA distribution) 2.5 cm inferior right occipital lobe and 6 mm in the mid right occipital lobe. Occipital lobe (both occipital infarct in the right posterior cerebral artery distribution. Suggest: CT cervical carotid arteriogram and cerebral angiogram. Interpreted and Authenticated by: Jose Juárez 07/01/17
[2017-07-01] MEDS: CLOPIDOGREL 75 MG TABLET PO SCH (21:34)
[2017-07-01] MEDS: ATENOLOL 50 MG TABLET PO SCH (21:34)
[2017-07-02] MEDS: POTASSIUM CHLORIDE 20 MEQ in 0.45 % SODIUM CHLORIDE 1,000 ML IV SCH ×2 (03:42→21:12)
[2017-07-02 06:52] LABS: Basophils # (Auto) 0 K/mcL (0.0-0.3); Basophils % (Auto) 0.2 % (0.0-2.0); Eosinophils # (Auto) 0.1 K/mcL (0.0-0.7); Eosinophils % (Auto) 1.2 % (0.0-7.0); Granulocytes % (Auto) 84.2 % (38.0-78.0); Lymphocytes # (Auto) 0.7 K/mcL (1.5-4.8); Lymphocytes % (Auto) 8.5 % (15.5-49.0); Mean Cell Volume 99.3 fL (80.0-100.0); Mean Corpuscular Hemoglobin 33.7 pg (26.0-34.0); Monocytes # (Auto) 0.4 K/mcL (0.1-0.9); Monocytes % (Auto) 5.9 % (1.0-12.0); Platelet Count 182 K/mcL (140-440); RBC 2.59 M/mcL (4.50-5.90); Red Cell Distribution Width 15.4 % (11.5-14.5)
[2017-07-02] MEDS: PANTOPRAZOLE 40 MG TABLET PO SCH (07:00)
[2017-07-02 07:16] LABS: ALT/SGPT 23 U/l (0-40); Albumin 3.5 gm/dL (3.2-5.2); Albumin/Globulin Ratio 1.3 (1.0-2.3); Alkaline Phosphatase 40 U/L (39-117); Bilirubin,Direct < 0.2 mg/dL (0.0-0.3); Blood Urea Nitrogen 18 mg/dl (8-23); Gamma Glutamyl Transpeptidase 13 U/L (8-61); Magnesium 1.9 mg/dL (1.6-2.5); Uric Acid 5.8 mg/dL (2.5-8.0)
[2017-07-02] MEDS ORDERED: UBIDECARENONE 400 MG PO SCH (09:00)
[2017-07-02] MEDS: ASPIRIN 81 MG TAB.CHEW PO SCH (10:36)
[2017-07-02] MEDS: CLOPIDOGREL 75 MG TABLET PO SCH (10:36)
[2017-07-02] MEDS: ATENOLOL 50 MG TABLET PO SCH ×2 (10:36→21:15)
[2017-07-02] MEDS: HEPARIN 5,000 UNIT/ML VIAL SQ SCH ×2 (10:36→21:15)
[2017-07-02] MEDS: SIMVASTATIN 10 MG TABLET PO SCH (10:37)
--- NOTE | 2017-07-02 12:37 | Internal Med Progress Note ---
Medical - PN: Subj Patient information: Note initiated : 07/02/17 at 12:36 pm Service Date, if different from initiated Date: [] Patient: Lele Terrell 87 y/o M admitted on 07/01/17 for N/V/D, Bloody Stools/Lower GI Bleed, Poss Stroke. Chief Complaint: [] Interval history: June 30, 2017: History of present illness: Mr. Terrell is a 87 year old man with a past history of coronary disease and cerebrovascular disease, status post stroke in 2000, who was in his normal state of health until 2 days prior to admission. That morning when he got up and looked in the mirror, he said he could not see the left side of his face. He thought there was something wrong with the vision in his left eye. He was subsequently evaluated at an emergency room in [facility]. They apparently did a dry head CT, and decided that he may have had amaurosis fugax or other eye specific problem. They advised him to follow-up with his eye doctor. Since that time, he has had ongoing intermittent episodes of what he describes as blurry vision, which she thinks is in the left visual field, and also dizziness and nausea. He cannot decide if he has vertigo or not, but says he definitely has been off balance and has felt lightheaded. This morning, he again had worsening dizziness associated with 4 episodes of nausea and vomiting. His family insisted that he come to the emergency room for evaluation. He also notes that he is having some occasional symptoms in his left eye on and off for about 20 years, mainly including squiggly lines. As he is checked by an eye doctor annually. He actually went to a football game after his ER visit, and says he did fine. However when it came to drive home from [place] back to [place], he decided he might not be safe to drive, so had 1 of his children come and get him. When he presented to the emergency room this evening, he also discussed that he had been seeing blood in his stools. He ended up having a CT scan of his abdomen, which shows a possible mass in his sigmoid colon. When the attending physician then heard his entire story, he wanted to do a CT angiogram of the patient's head and neck, but by then he had already had IV dye once, and they felt it was la not to give him a second dose tonight. Otherwise, the patient is having continued episodes of dizziness, nausea and vomiting here in the emergency room, which has not been resolved with medications. He notes he occasionally has chills and night sweats, which she has had for a while. He has an occasional dull headache. Said he was treated for a cough about 2 weeks ago with antibiotics. Occasionally has some lower sternal discomfort which he blames on reflux. He otherwise denies new ear symptoms, sore throat or dysphagia, swollen glands, chest pain or palpitations, shortness of breath or wheezing, abdominal pain, diarrhea, constipation, dysuria. He is now being admitted for monitoring, regarding possible recent stroke. We will hydrate him overnight, and get CT angiograms in the morning. We will also attempt to control his nausea this evening. Also, because of his abnormal CAT scan, I have asked Dr. Robb of general surgery to evaluate him as well. July 01: Patient believes his vision is better today, but he is still having some intermittent lightheadedness. He still has a slight headache. Radiology had sent the patient could not have a follow-up CT scan with dye for 24-48 hours, so we ordered an MR angiogram instead. Unfortunately the patient has severe claustrophobia, and could not tolerate being in the scanner very long, in spite of receiving IV Ativan. The images that were obtained did show both the right cerebellar and a right occipital infarct. They were not able to complete the imaging. These were suggestive of a posterior circulation problem. July 02. Today, the patient feels that his vision seems a little more normal. He is no longer feeling like he only sees have of his visual field. He continues to have episodes where he feels a bit lightheaded, and was definitely off balance when PT tried to stand him up today. He apparently is very unsteady on his feet , and physical therapy feels that he would be very high risk for falls, should he return home without assistance. He did undergo CT angiogram of his brain today, and this shows diminutive right PICA and occipital branches from the right posterior cerebral artery, suggestive of recent spontaneous thrombolysis. Neck CT angiogram is still pending. Echocardiogram shows mild LVH with diastolic dysfunction and dilated left atrium , and probable moderate pulmonary hypertension. The patient denies fever or chills, chest pain or palpitations, shortness of breath, GI or symptoms. He denies any new numbness or tingling, vision changes, focal weakness. Medical History Gastroesophageal reflux disease (Chronic) Hyperlipidemia (Chronic) Atherosclerotic heart disease (Chronic) Cerebrovascular disease, history of stroke in 2000, history of bilateral carotid endarterectomies. 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 Etiology, attends a neuropathy clinic in [place], "hot feet...for 20 years" Lumbago (Chronic) Hypertension, essential (Chronic 09/13/14) CAD (coronary artery disease), status post coronary artery bypass. Anemia (Chronic 11/10/14) - Constitutional Vitals: Vital Signs Temp Pulse Resp BP Pulse Ox 99.5 F H 67 16 139/76 86 L 07/02/17 07:53 07/02/17 04:00 07/02/17 07:53 07/02/17 07:53 07/02/17 07:53 Period Temp Pulse Resp BP Sys/Mcnamara Pulse Ox Last 24 Hr 97.1 F-99.5 F 67-103 16-22 113-151/69-81 86-98 Intake and Output 07/01/17 07/02/17 07/02/17 21:59 05:59 13:59 Intake Total 1010 / 1010 Output Total 900 / 900 750 / 750 Balance -900 / -900 260 / 260 Weight 188 lb Intake & Output: Intake & Output 07/01/17 07/02/17 07/02/17 21:59 05:59 13:59 Intake Total 1010 / 1010 Output Total 900 / 900 750 / 750 Balance -900 / -900 260 / 260 Weight 188 lb Intake: IV 1010 / 1010 Potassium Chloride 20 Meq In 1010 / 1010 Sodium Chloride 0.45% 1,000 ml @ 75 mls/hr IV .[id number] [facility] Rx# :[id number] Output: Urine Catheter Amount 750 / 750 Void Amount 900 / 900 On exam, he is awake and alert. He had quite a bit of confusion last night after receiving Ativan for his MRI. He is much more alert today. Head: Is normocephalic, atraumatic. Neck is supple without obvious lymphadenopathy. He does have soft carotid bruits. Cardiac exam shows regular rate and rhythm with normal S1 and S2, with a 3 out of 6 systolic ejection murmur noted. Lungs show a few crackles at the bases, but otherwise are clear to auscultation. Abdomen is soft and nontender with no obvious masses. Extremities show no edema. Neurologic exam: Patient is alert and oriented, calm and cooperative. Visual mack appear full today. Cranial nerves are otherwise grossly intact. Motor exam is grossly intact. The remainder of the exam is not tested in detail. Medical - PN: Obj Da - Labs CBC & Chem 7: 07/02/17 04:25 07/02/17 04:25 Labs: Abnormal Lab Results 07/02/17 07/01/17 07/01/17 04:25 03:35 03:35 RBC 2.59 L 2.80 L Hgb 8.7 L 9.2 L Hct 25.7 L 27.7 L RDW 15.4 H 14.9 H Gran % 84.2 H Lymph % (Auto) 8.5 L Lymph # (Auto) 0.7 L 1.0 L ESR 24 H BUN Glucose 06/30/17 06/30/17 16:24 16:23 RBC 3.21 L Hgb 10.9 L Hct 31.6 L RDW 15.1 H Gran % 87.9 H Lymph % (Auto) 8.7 L Lymph # (Auto) 0.8 L ESR BUN 27 H Glucose 118 H July 02: Echocardiogram: Shows mild LVH. Low normal systolic function with ejection fraction 57%. Grade 2 diastolic dysfunction. Moderate to severely dilated left atrium. Severe posterior mitral annular calcification. Moderate mitral regurgitation. Moderate pulmonary hypertension. Aortic root sclerosis. CT angiogram of the head: IMPRESSION: Diminutive and slightly irregular right PICA and occipital branches from the right posterior cerebral artery supplying the region of known acute infarcts. Findings are compatible with recent spontaneous thrombolysis. Next CT angiogram of the neck: Report pending. July 01: Pro time is normal at 13, PTT normal at 29 Total cholesterol is 128, LDL 63, HDL 41, triglycerides 120 MRI/MRA: (Partial): Formal report is pending. Verbal report indicates right occipital and right cerebellar infarcts. Both posterior circulation infarcts. Echocardiogram: Results pending. CEA is normal at 2.1 June 30: CT of the abdomen and pelvis: IMPRESSION: 1. No definite etiology identified to account for GI blood loss. A 3.3 cm intraluminal soft tissue density in the mid sigmoid colon is more likely stool than colon carcinoma. Follow-up colonoscopy to be performed 2. Infrarenal fusiform abdominal aortic aneurysm. Maximal AP diameter has increased from 3.5 cm a 3.9 cm since the [address] CT. consider follow ultrasound in one year 3. Mild prostate enlargement - stable 4. 20 mm well-circumscribed nodule in the lingula - new. It is likely a granuloma. Suggest follow-up chest x-ray in 3-4 months. Abdominal x-ray: Was read as normal. EKG shows normal sinus rhythm rate of about 75. T waves are inverted inferiorly. T waves are somewhat hyper acute in leads V2 to V3. We do not seem to have an old tracing to compare. Dry head CT done in [place] about 2 days ago was reported as normal. Chest x-ray: Sternotomy and CABG changes noted. Borderline cardiomegaly. Stable. Troponin was normal at less than 0.01. CRP was normal at less than 0.3 Meds: Medications Acetaminophen (Tylenol) 650 mg PO Q6HP PRN PRN Reason: PAIN/FEVER > 101 Albuterol Sulfate (Ventolin) 2.5 mg NEB Q4HRT PRN PRN Reason: Shortness Of Breath Or Wheezing Aspirin (Aspirin) 81 mg PO DAILY [facility] Last Admin: 07/02/17 10:36 Dose: 81 mg Atenolol (Tenormin) 50 mg PO BID [facility] Last Admin: 07/02/17 10:36 Dose: 50 mg Clopidogrel Bisulfate (Plavix) 75 mg PO DAILY [facility] Last Admin: 07/02/17 10:36 Dose: 75 mg Docusate Sodium (Colace) 100 mg PO BID PRN PRN Reason: Constipation Heparin Sodium (Porcine) (Heparin) 5,000 unit SQ Q12 [facility] Last Admin: 07/02/17 10:36 Dose: 5,000 unit Potassium Chloride 20 meq/ (Sodium Chloride) 1,010 mls @ 75 mls/hr IV .[id number] [facility] Last Admin: 07/02/17 03:42 Dose: 75 mls/hr Magnesium Hydroxide (Milk Of Magnesia) 30 ml PO DAILYP PRN PRN Reason: Constipation Metoprolol Tartrate (Lopressor) 5 mg IV Q4HP PRN PRN Reason: Blood Pressure - High Ondansetron HCl (Zofran) 4 mg IV Q4HP PRN PRN Reason: Nausea And Vomiting Last Admin: 07/01/17 07:14 Dose: 4 mg Pantoprazole Sodium (Protonix) 40 mg PO QAMAC [facility] Last Admin: 07/02/17 07:00 Dose: 40 mg Promethazine HCl (Phenergan) 12.5 mg IV Q4-6HP PRN PRN Reason: Nausea And Vomiting Last Admin: 07/01/17 13:41 Dose: 12.5 mg Simvastatin (Zocor) 10 mg PO DAILY [facility] Last Admin: 07/02/17 10:37 Dose: 10 mg Medical - PN: A/P - Time Spent With Patient Total time spent is greater than 50% in coordination of care (as documented) at patient's floor/unit and/or counseling patient: Greater than 35 minutes (1) Sigmoid thickening Status: Acute Current Visit: Yes (2) Dizziness, nonspecific Status: Acute Current Visit: Yes (3) Atherosclerotic heart disease Status: Chronic Current Visit: No (4) Cerebrovascular disease Status: Chronic Current Visit: No (5) Hypertension, essential Status: Chronic Current Visit: No (6) Anemia Status: Acute Current Visit: No - Narrative A/P Narrative: #1. Neurologic. This patient presents with subacute change in vision, associated with dizziness and nausea. -MRI today does confirm at least 2 acute strokes, and the right cerebellum and the right occipital lobe. MRI could not be completed due to patient's anxiety. CT scan today suggests probable embolic stroke from the right posterior circulation. I reviewed the findings this evening with the patient and his son and daughter- in-law. We will continue with aspirin, and Plavix to try to prevent further strokes, pending workup. Report on the neck CT angiogram appears to still be pending. Once I get these results I would like to review them with either vascular surgery or with Dr. Aaron of interventional radiology, to see what they would recommend next. Alternatively I could review the case with neurology. 2. GI. Patient presents with rectal bleeding, and new onset anemia. Abdominal CT reportedly shows a sigmoid mass. Dr. Robb saw him . Patient will require upper and lower endoscopy, once neurologic status is stable. -The patient's hemoglobin and hematocrit have been drifting down since admission. He presented with H and H of 10 and 31, and is now down to 8.7 and 25.7. I do not believe he has had any obvious gross bleeding, but has been having rectal bleeding at home prior to admission. He is now on both aspirin and Plavix, which may be aggravating things. Given his history of coronary disease, we should probably not let him drop below 8 and 25. If he does, he may require transfusion, and I may need to ask Dr. Robb to go ahead and try to diagnose the source of the bleeding. History of GERD. Continue omeprazole. 3. Cardiac. History of coronary disease. Continue aspirin, atenolol, lovastatin. Aspirin may need to be held if Dr. Robb decides to do any surgeries. 4. CODE STATUS: 5. DVT prophylaxis: Subcu heparin, unless bleeding becomes more of an issue. 6. Pulmonary.? History of asthma. Continue as needed albuterol. Approximately 40 minutes was spent today, reviewing patient's test results, interviewing and examining him, meeting with the patient and his family twice, reviewing plan of care with staff, and writing orders. Addendum: Apparently 1 of our staff members was trying to get the patient up to the bedside commode. He lost his balance and she could not support his weight, so she let him slide to the floor. The patient had been moved out of the intensive care unit last night, to a telemetry bed, as we needed the ICU bed. Since he is clearly unstable on his feet at this time and a high fall risk, he will be moved back to the intensive care unit, where the nurses can keep a closer eye on him. Medical - PN: Qual - VTE Deep Vein Thrombosis/Pulmonary Embolism Present on Admission: No
[2017-07-02] MEDS: ONDANSETRON 4 MG/2 ML VIAL IV PRN (12:40)
--- NOTE | 2017-07-02 14:33 | Cat Scan Report ---
CLINICAL INFORMATION: Right posterior inferior cerebellar and occipital lobe acute nonhemorrhagic infarcts on recent MRI COMPARISON: None. TECHNIQUE: 80 cc of Isovue-300 were injected intravenously , and using SmartPrep to maximize cerebral arterial opacification, 0.625 mm helical slices were obtained from the skull base through the cerebral vertex. Following reconstruction , sagittal, coronal and axial reformatted images were processed and reviewed at multiple windows and levels. 3D volume rendered and MIP images were also obtained at an independent workstation. FINDINGS: The right PICA and the occipital branches off the right posterior cerebral artery are diminutive and slightly irregular but are opacified. This suggests recent spontaneous thrombolysis. The remainder of the right posterior cerebral, left posterior cerebral, both intracranial vertebral, basilar, intracranial internal carotid, anterior and middle cerebral arteries and their branches are unremarkable. IMPRESSION: Diminutive and slightly irregular right PICA and occipital branches from the right posterior cerebral artery supplying the region of known acute infarcts. Findings are compatible with recent spontaneous thrombolysis. Interpreted and Authenticated by: Jose Juárez 07/02/17
--- NOTE | 2017-07-02 18:14 | Cat Scan Report ---
CLINICAL INFORMATION: Acute nonhemorrhagic infarct in the right inferior cerebellum and right occipital lobe on MRI COMPARISON: None. TECHNIQUE: 80 cc of Isovue-300 were injected intravenously followed by 40 cc of normal saline flush. Using SmartPrep, 0.625 helical slices were obtained from the thoracic aortic arch through the [place]. Following reconstruction, 2.5 mm sagittal, coronal and axial reformatted images, 3-D volume rendering and CPR images were constructed. FINDINGS: The thoracic aortic arch is normal in contour and caliber with diffuse fibrofatty calcific plaque. Aortic branching is conventional. The brachiocephalic, both common, internal and external carotid, both subclavian and left vertebral arteries are all widely patent. 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 A second focal 1 cm subocclusive stenosis in the mid right vertebral artery at the C5 level is noted. This could be due to atherosclerotic or a subocclusive thrombus. Distally, the right vertebral artery is reconstituted via muscular branches and also likely the left vertebral artery via cross-filling from the basilar artery. No soft tissue abnormalities. 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 There is also a 1 cm subocclusive stenosis in the mid right vertebral artery at the C5 level. Interpreted and Authenticated by: Jose Juárez 07/02/17
[2017-07-03] MEDS: POTASSIUM CHLORIDE 20 MEQ in 0.45 % SODIUM CHLORIDE 1,000 ML IV SCH (04:33)
[2017-07-03 05:55] LABS: Basophils # (Auto) 0 K/mcL (0.0-0.3); Basophils % (Auto) 0.2 % (0.0-2.0); Eosinophils # (Auto) 0.3 K/mcL (0.0-0.7); Eosinophils % (Auto) 3.5 % (0.0-7.0); Granulocytes % (Auto) 72.9 % (38.0-78.0); Lymphocytes # (Auto) 1.1 K/mcL (1.5-4.8); Lymphocytes % (Auto) 15.1 % (15.5-49.0); Mean Cell Volume 99.2 fL (80.0-100.0); Mean Corpuscular Hemoglobin 33.7 pg (26.0-34.0); Monocytes # (Auto) 0.6 K/mcL (0.1-0.9); Monocytes % (Auto) 8.3 % (1.0-12.0); Platelet Count 185 K/mcL (140-440); RBC 2.73 M/mcL (4.50-5.90); Red Cell Distribution Width 15.3 % (11.5-14.5)
[2017-07-03 06:20] LABS: ALT/SGPT 20 U/l (0-40); Albumin 3.6 gm/dL (3.2-5.2); Albumin/Globulin Ratio 1.3 (1.0-2.3); Alkaline Phosphatase 41 U/L (39-117); Bilirubin,Direct < 0.2 mg/dL (0.0-0.3); Blood Urea Nitrogen 18 mg/dl (8-23); Gamma Glutamyl Transpeptidase 14 U/L (8-61); Magnesium 1.9 mg/dL (1.6-2.5); Uric Acid 5.5 mg/dL (2.5-8.0)
[2017-07-03] MEDS: CLOPIDOGREL 75 MG TABLET PO SCH (09:21)
[2017-07-03] MEDS: SIMVASTATIN 10 MG TABLET PO SCH (09:22)
[2017-07-03] MEDS: ATENOLOL 50 MG TABLET PO SCH (09:22)
[2017-07-03] MEDS: ASPIRIN 81 MG TAB.CHEW PO SCH (09:22)
[2017-07-03] MEDS: PANTOPRAZOLE 40 MG TABLET PO SCH (09:22)
[2017-07-03] MEDS: HEPARIN 5,000 UNIT/ML VIAL SQ SCH (09:22)
--- NOTE | 2017-07-03 11:50 | Discharge Summary ---
Medical - DS: Prov Patient information: Note initiated : 07/03/17 at 11:43 am Patient: Lele Terrell 87 y/o M admitted on 07/01/17 for N/V/D, Bloody Stools/Lower GI Bleed, Poss Stroke. Date of admission: 07/01/17 15:22 Discharge date: 07/03/17 Primary care physician: WILLIAM Mock. Phone number [phone] Admitting clinician: Thania Thompson Consults: 06/30/17 20:30 Consult to Physician [CONS] Stat Comment: Consulting Provider: Thania Thompson Reason For Exam: Physician to Consult 06/30/17 22:25 Consult to Physician [CONS] Routine Comment: Consulting Provider: Fab Robb Reason For Exam: Physician to Consult Attending physician on discharge: Thania Thompson Medical - DS: Meds - Discharge Medications Prescriptions: Clopidogrel Bisulfate [Plavix] 75 mg PO DAILY #1 tablet Ondansetron HCl [Zofran ODT] 4 mg SL Q4-6HP PRN #1 tablet PRN Reason: Nausea Active and Home Medications: Discharge medications: Aspirin 81 mg daily Plavix 75 mg p.o. daily Atenolol 50 mg p.o. twice daily Lovastatin 20 mg p.o. daily Colace 100 mg p.o. twice daily as needed Heparin 5000 units subcu every 12, discontinue when regularly ambulatory. Milk of magnesia 30 mL p.o. daily as needed Zofran 4 mg sublingual every 4 hours as needed nausea Omeprazole 20 mg p.o. daily Carnitine 1000 mg daily Alpha lipoic acid 2 tabs daily Black finnegan concentrate 2 caps daily Apple cider vinegar 900 mg daily B12 5000 mcg sublingual daily B complex 1 daily Natures purest wellness factors from home for caps daily Home joint supplement 3 caps daily Fish oil supplement 2 caps daily Papaya 2 caps daily Coenzyme Q 10 400 mg daily Previous home Medications aspirin 81 mg tablet,delayed release 81 mg PO QDAY 11/08/15 [History Confirmed 07/01/17 Last Taken Unknown] albuterol sulfate HFA 90 mcg/actuation aerosol inhaler 2 inh INHALATION Q6H PRN #8.5 g 09/03/16 [Rx Confirmed 06/09/17 Last Taken Unknown] atenolol 50 mg tablet 50 mg PO Q12H 90 Days #180 tab 12/29/16 [Rx Confirmed 09/16 Last Taken Unknown] lovastatin 20 mg tablet 20 mg PO QDAY 90 Days #90 tab 03/31/17 [Rx Confirmed 09/16 Last Taken Unknown] omeprazole 20 mg capsule,delayed release 20 mg PO QDAY 90 Days #90 cap 05/05/17 [Rx Confirmed 07/01/17 Last Taken Unknown] Acetaminophen [Tylenol] 650 mg PO Q4HP PRN 07/01/17 [History Confirmed 07/01/17 Last Taken Unknown] Acetylcarnitine [Acetyl l-Carnitine] 1,000 mg PO DAILY 07/01/17 [History Confirmed 07/01/17 Last Taken Unknown] Alpha Lipoic Acid 2 tab PO DAILY 07/01/17 [History Confirmed 07/01/17 Last Taken Unknown] Black Finnegan Concentrate 2 cap PO DAILY 07/01/17 [History Confirmed 07/01/17 Last Taken Unknown] Cider Vinegar [Apple Cider Vinegar] 900 mg PO DAILY 07/01/17 [History Confirmed 07/01/17 Last Taken Unknown] Cyanocobalamin/Cobamamide [B-12 5,000 Mcg Sublingual Tab] 1 tab SL DAILY [History Confirmed 07/01/17 Last Taken Unknown] Cyanocobalamin/FA/Pyridoxine [B Complex-Folic Acid Tablet] 1 tab PO DAILY [History Confirmed 07/01/17 Last Taken Unknown] Gnc Herbal Plus Energy Formula 1 - 2 cap PO DAILY 07/01/17 [History Confirmed Last Taken Unknown] Gnc Scar Men 50 Plus 2 cap PO DAILY 07/01/17 [History Confirmed 07/01/17 Last Taken Unknown] Ibuprofen [I-Prin] 400 mg PO PRN PRN 07/01/17 [History Confirmed 07/01/17 Last Taken Unknown] Nature's Purest Wellness Factors 4 cap PO DAILY 07/01/17 [History Confirmed 09/16 Last Taken Unknown] Nds Dr. Savage Advanced 3 cap PO DAILY 07/01/17 [History Confirmed 07/01/17 Last Taken Unknown] Rapelje-3/Dha/Epa/Fish Oil [Fish Oil 1,000 mg Softgel] 2 cap PO DAILY 07/01/17 [ History Confirmed 07/01/17 Last Taken Unknown] Papaya 2 each PO DAILY 07/01/17 [History Confirmed 07/01/17 Last Taken Unknown] Ubidecarenone [Co Q-10] 400 mg PO DAILY 07/01/17 [History Confirmed 07/01/17 Last Taken Unknown] Medical - DS: [facility] course: Mr. Terrell is a 87 year old M June 30, 2017: History of present illness: Mr. Terrell is a 87 year old man with a past history of coronary disease and cerebrovascular disease, status post stroke in 2000, who was in his normal state of health until 2 days prior to admission. That morning when he got up and looked in the mirror, he said he could not see the left side of his face. He thought there was something wrong with the vision in his left eye. He was subsequently evaluated at an emergency room in [facility]. They apparently did a dry head CT, and decided that he may have had amaurosis fugax or other eye specific problem. They advised him to follow-up with his eye doctor. Since that time, he has had ongoing intermittent episodes of what he describes as blurry vision, which she thinks is in the left visual field, and also dizziness and nausea. He cannot decide if he has vertigo or not, but says he definitely has been off balance and has felt lightheaded. This morning, he again had worsening dizziness associated with 4 episodes of nausea and vomiting. His family insisted that he come to the emergency room for evaluation. He also notes that he is having some occasional symptoms in his left eye on and off for about 20 years, mainly including squiggly lines. As he is checked by an eye doctor annually. He actually went to a football game after his ER visit, and says he did fine. However when it came to drive home from [place] back to [place], he decided he might not be safe to drive, so had 1 of his children come and get him. When he presented to the emergency room this evening, he also discussed that he had been seeing blood in his stools. He ended up having a CT scan of his abdomen, which shows a possible mass in his sigmoid colon. When the attending physician then heard his entire story, he wanted to do a CT angiogram of the patient's head and neck, but by then he had already had IV dye once, and they felt it was la not to give him a second dose tonight. Otherwise, the patient is having continued episodes of dizziness, nausea and vomiting here in the emergency room, which has not been resolved with medications. He notes he occasionally has chills and night sweats, which she has had for a while. He has an occasional dull headache. Said he was treated for a cough about 2 weeks ago with antibiotics. Occasionally has some lower sternal discomfort which he blames on reflux. He otherwise denies new ear symptoms, sore throat or dysphagia, swollen glands, chest pain or palpitations, shortness of breath or wheezing, abdominal pain, diarrhea, constipation, dysuria. He is now being admitted for monitoring, regarding possible recent stroke. We will hydrate him overnight, and get CT angiograms in the morning. We will also attempt to control his nausea this evening. Also, because of his abnormal CAT scan, I have asked Dr. Robb of general surgery to evaluate him as well. July 01: Patient believes his vision is better today, but he is still having some intermittent lightheadedness. He still has a slight headache. Radiology had sent the patient could not have a follow-up CT scan with dye for 24-48 hours, so we ordered an MR angiogram instead. Unfortunately the patient has severe claustrophobia, and could not tolerate being in the scanner very long, in spite of receiving IV Ativan. The images that were obtained did show both the right cerebellar and a right occipital infarct. They were not able to complete the imaging. These were suggestive of a posterior circulation problem. July 02. Today, the patient feels that his vision seems a little more normal. He is no longer feeling like he only sees have of his visual field. He continues to have episodes where he feels a bit lightheaded, and was definitely off balance when PT tried to stand him up today. He apparently is very unsteady on his feet , and physical therapy feels that he would be very high risk for falls, should he return home without assistance. He did undergo CT angiogram of his brain today, and this shows diminutive right PICA and occipital branches from the right posterior cerebral artery, suggestive of recent spontaneous thrombolysis. Neck CT angiogram is still pending. Echocardiogram shows mild LVH with diastolic dysfunction and dilated left atrium , and probable moderate pulmonary hypertension. The patient denies fever or chills, chest pain or palpitations, shortness of breath, GI or symptoms. He denies any new numbness or tingling, vision changes, focal weakness. July 03: Hospital course: -The patient was admitted initially for observation, for suspicion of new stroke. He then underwent MRI, but could not complete the exam, due to severe claustrophobia, and then confusion caused by Ativan. This limited study did show small infarcts in the right cerebellum and right occipital lobe. Patient subsequently underwent CT angiogram that showed a slightly irregular PICA and posterior cerebral artery. 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 Plavix was added to the patient's aspirin regimen. Patient did undergo evaluation with occupational and physical therapies. He is very high risk for falls, given poor balance and altered vision. He was referred for rehab. -The patient was also evaluated for rectal bleeding, and does have abnormal CT scan. Surgery feels that he needs an upper endoscopy as well as a colonoscopy, to rule out malignancies. However since he does not appear to be actively bleeding, this workup can be postponed for a few weeks. -Today, the patient thinks he still has some slight loss of his left field of vision, but that seems improved over before. He still has significant balance issues and can feel slightly nauseated when trying to stand up. He otherwise denies new symptoms, including new eye or ear symptoms, focal weakness, numbness , tingling. He denies fever chills, chest pain or palpitations, shortness of breath or cough , abdominal pain, vomiting, diarrhea, dysuria. Medical History Gastroesophageal reflux disease (Chronic) Hyperlipidemia (Chronic) Atherosclerotic heart disease (Chronic) Cerebrovascular disease, history of stroke in 2000, history of bilateral carotid endarterectomies. 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 Etiology, attends a neuropathy clinic in [place], "hot feet...for 20 years " Lumbago (Chronic) Hypertension, essential (Chronic 09/13/14) CAD (coronary artery disease), status post coronary artery bypass. Anemia (Chronic 11/10/14) On exam, he is awake and alert. He is awake and alert, but is a bit forgetful, particularly around the events of the last couple of days. His son notes that he has been noticing more memory loss issues at home as well. The son also notes that the patient has been continuing to drive, and recently drove to [place].. Head: Is normocephalic, atraumatic. Neck is supple without obvious lymphadenopathy. He does have soft carotid bruits. Cardiac exam shows regular rate and rhythm with normal S1 and S2, with a 3 out of 6 systolic ejection murmur noted. Lungs show a few crackles at the bases, but otherwise are clear to auscultation. Abdomen is soft and nontender with no obvious masses. Extremities show no edema. Neurologic exam: Patient is alert and oriented, calm and cooperative. Visual mack appear full today. Cranial nerves are otherwise grossly intact. Motor exam is grossly intact. The remainder of the exam is not tested in detail. Assessment and plan: #1. Neurologic. This patient presents with subacute change in vision, associated with dizziness and nausea. -MRI does confirm at least 2 acute strokes, and the right cerebellum and the right occipital lobe. MRI could not be completed due to patient's anxiety. Follow-up CT angiogram does show thrombus in the right vertebral artery, as well as stenosis. These findings were reviewed by telephone with Dr. Aaron, of interventional radiology, at [facility], and [facility]. He feels the patient should be treated with aspirin and Plavix. The patient should follow-up with him for consultation in 2-4 weeks, to see if any procedures are warranted at that time. Alternatively, if the patient will be staying [place], follow-up with a vascular surgeon in [place] would also be appropriate. -In view of the patient's recurrent stroke and vision issues, and apparent memory issues, the patient should be discouraged from driving for at least a few months. 2. GI. Patient presents with rectal bleeding, and new onset anemia. Abdominal CT reportedly shows a sigmoid mass. Dr. Robb saw him . Patient will require upper and lower endoscopy, once neurologic status is stable. -The patient's hemoglobin and hematocrit have been drifting down since admission. He presented with H and H of 10 and 31, and is now down to 9.2 and 27. I do not believe he has had any obvious gross bleeding, but has been having rectal bleeding at home prior to admission. He is now on both aspirin and Plavix, which may be aggravating things. Given his history of coronary disease , we should probably not let him drop below 8 and 25. If he does, he may require transfusion. -History of GERD. Continue omeprazole. 3. Cardiac. History of coronary disease. -Continue aspirin, atenolol, lovastatin. 4. CODE STATUS: Full code. 5. DVT prophylaxis: Subcu heparin, unless bleeding becomes more of an issue. 6. Pulmonary.? History of asthma. Continue as needed albuterol. Approximately 40 minutes was spent today, reviewing patient's test results, interviewing and examining him, meeting with the patient and his family , reviewing plan of care with staff, and writing orders. Discharge diagnosis: Acute ischemic stroke, right cerebellum, right occipital lobe. - Time Spent with Patient Total time spent providing and/or coordinating discharge services: Greater than 30 minutes Medical - DS: Exam - Constitutional Vitals: Vital Signs Temp Pulse Resp BP BP Pulse Ox 07/03/17 09:00 97.7 F 75 16 130/75 98 07/03/17 07:42 98 07/03/17 06:45 98 07/03/17 04:00 97.8 F 62 18 132/69 95 07/02/17 23:51 98.0 F 62 16 133/64 99 07/02/17 20:00 99.0 F H 69 18 151/76 100 07/02/17 16:00 99.6 F H 72 18 142/72 97 07/02/17 12:00 98.6 F 75 18 140/73 98 Intake and Output 07/02/17 07/03/17 07/03/17 21:59 05:59 13:59 Intake Total 1010 / 1010 200 / 200 1330 / 1330 Output Total 875 / 875 650 / 650 Balance 1010 / 1010 -675 / -675 680 / 680 Intake: IV 1010 / 1010 1010 / 1010 Potassium Chloride 20 Meq In 1010 / 1010 1010 / 1010 Sodium Chloride 0.45% 1,000 ml @ 75 mls/hr IV .[id number] ARIADNA Rx# :[id number] Oral 200 / 200 320 / 320 Output: Void Amount 875 / 875 650 / 650 Other: Meal Breakfast Percent of Meal Consumed 75% Feeding Ability Assist with Tray Set Up Weight 193 lb Medical - DS: Data Labs on day of discharge: Labs from last 24 hours 07/03/17 07/03/17 04:00 04:00 WBC 7.3 RBC 2.73 L Hgb 9.2 L Hct 27.1 L MCV 99.2 MCH 33.7 MCHC 34.0 RDW 15.3 H Plt Count 185 MPV 8.2 Gran % 72.9 Lymph % (Auto) 15.1 L [place] % (Auto) 8.3 Eos % (Auto) 3.5 Baso % (Auto) 0.2 Gran # 5.3 Lymph # (Auto) 1.1 L [place] # (Auto) 0.6 Eos # (Auto) 0.3 Baso # (Auto) 0 Sodium 139 Potassium 4.3 Chloride 103 Carbon Dioxide 27 Anion Gap 9.0 BUN 18 Creatinine 0.9 GFR Calculation 78 Glucose 85 Uric Acid 5.5 Calcium 9.1 Phosphorus 3.3 Magnesium 1.9 Total Bilirubin 0.3 Direct Bilirubin < 0.2 GGT 14 AST 18 ALT 20 Alkaline Phosphatase 41 Lactate Dehydrogenase 156 Total Protein 6.4 Albumin 3.6 Globulin 2.8 Albumin/Globulin Ratio 1.3 Triglycerides 131 July 02: Echocardiogram: Shows mild LVH. Low normal systolic function with ejection fraction 57%. Grade 2 diastolic dysfunction. Moderate to severely dilated left atrium. Severe posterior mitral annular calcification. Moderate mitral regurgitation. Moderate pulmonary hypertension. Aortic root sclerosis. CT angiogram of the head: IMPRESSION: Diminutive and slightly irregular right PICA and occipital branches from the right posterior cerebral artery supplying the region of known acute infarcts. Findings are compatible with recent spontaneous thrombolysis. 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 There is also a 1 cm subocclusive stenosis in the mid right vertebral artery at the C5 level. July 01: Pro time is normal at 13, PTT normal at 29 Total cholesterol is 128, LDL 63, HDL 41, triglycerides 120 MRI/MRA: (Partial): Formal report is pending. Verbal report indicates right occipital and right cerebellar infarcts. Both posterior circulation infarcts. Echocardiogram: Results pending. CEA is normal at 2.1 June 30: CT of the abdomen and pelvis: IMPRESSION: 1. No definite etiology identified to account for GI blood loss. A 3.3 cm intraluminal soft tissue density in the mid sigmoid colon is more likely stool than colon carcinoma. Follow-up colonoscopy to be performed 2. Infrarenal fusiform abdominal aortic aneurysm. Maximal AP diameter has increased from 3.5 cm a 3.9 cm since the [address] CT. consider follow ultrasound in one year 3. Mild prostate enlargement - stable 4. 20 mm well-circumscribed nodule in the lingula - new. It is likely a granuloma. Suggest follow-up chest x-ray in 3-4 months. Abdominal x-ray: Was read as normal. EKG shows normal sinus rhythm rate of about 75. T waves are inverted inferiorly. T waves are somewhat hyper acute in leads V2 to V3. We do not seem to have an old tracing to compare. Dry head CT done in [place] about 2 days ago was reported as normal. Chest x-ray: Sternotomy and CABG changes noted. Borderline cardiomegaly. Stable. Troponin was normal at less than 0.01. CRP was normal at less than 0.3 Medical - DS: A/P - Patient/Caregiver Discharge Instructions Activity: as per physical therapy Diet: Low Sodium (2gm) Additional Instructions: 1. Recurrent stroke. Please follow-up with Dr. Aaron of interventional radiology, at [facility], and [facility], in 2-4 weeks. Alternatively, heavier attending at [place] refer you out to vascular surgery in 2-4 weeks, if you are still there at that time. Otherwise, continue with Plavix and aspirin, until you have further evaluation. Other Amb Orders: Aspiration Precautions Location: Determined By Patient Fall Risk Location: Determined By Patient OT Discharge Order Location: Determined By Patient Physical Therapy at Discharge - General Location: Determined By Patient ST Discharge Order Location: Determined By Patient Complete Blood Count Time Frame: 2 Days, Location: Determined By Patient - Problem Maintenance (1) Sigmoid thickening Status: Acute (2) Dizziness, nonspecific Status: Acute (3) Atherosclerotic heart disease Status: Chronic (4) Cerebrovascular disease Status: Chronic (5) Hypertension, essential Status: Chronic (6) Anemia Status: Acute - Follow up Plan Follow up with: Timothy Kitchen PA-C [Primary Care Provider] - Disposition: Xfer Inpatient Rehab Fac Prognosis: Good Rehab Potential: Good Overall status at discharge: patient is progressing back to baseline Medical - DS: Qual - VTE Deep Vein Thrombosis/Pulmonary Embolism Present on Admission: No
[2017-07-03] MEDS: PROMETHAZINE 25 MG/ML VIAL IV PRN (11:58)
[2017-07-03] MEDS ORDERED: 0.9 % SODIUM CHLORIDE 10 ML SYRINGE IV SCH (14:00)
== END 2017-07-03 12:55 | DRG 65 ==
LOC: ICU 16:08 → ED 16:08 → ICU 22:10 → MEDSUR 07-02 03:05 → ICU 07-02 18:54
PROVIDERS: ADMIT Internal Medicine; ATTEND Internal Medicine

== ENCOUNTER 2018-04-14 06:50 | Inpatient (IN) ==
--- NOTE | 2018-04-12 17:57 | XRay Report ---
CLINICAL INFORMATION: Preop COMPARISON: 07/01/2017 FINDINGS: Mild cardiomegaly again noted. Mitral annular calcification again seen. Sternotomy changes noted. Mediastinum and pulmonary vessels are normal. There is minor scarring or atelectasis in the lingular region - remainder lungs are clear. No effusions. IMPRESSION: No acute disease Interpreted and Authenticated by: Jose Juárez 04/12/18
[2018-04-12 18:11] LABS: Basophils # (Auto) 0 K/mcL (0.0-0.3); Basophils % (Auto) 0.3 % (0.0-2.0); Eosinophils # (Auto) 0.4 K/mcL (0.0-0.7); Eosinophils % (Auto) 6.7 % (0.0-7.0); Granulocytes % (Auto) 68.7 % (38.0-78.0); Lymphocytes # (Auto) 0.8 K/mcL (1.5-4.8); Lymphocytes % (Auto) 13.7 % (15.5-49.0); Mean Cell Volume 90.4 fL (80.0-100.0); Mean Corpuscular HGB Conc 32.9 g/dL (31.0-36.0); Mean Corpuscular Hemoglobin 29.7 pg (26.0-34.0); Monocytes # (Auto) 0.6 K/mcL (0.1-0.9); Monocytes % (Auto) 10.6 % (1.0-12.0); Platelet Count 198 K/mcL (140-440); RBC 4.05 M/mcL (4.50-5.90); Red Cell Distribution Width 24.7 % (11.5-14.5)
[2018-04-12 19:09] LABS: ALT/SGPT 21 U/l (0-40); Albumin 4.6 gm/dL (3.2-5.2); Albumin/Globulin Ratio 1.5 (1.0-2.3); Alkaline Phosphatase 52 U/L (39-117); Blood Urea Nitrogen 25 mg/dl (8-23)
[~2018-04-14 06:50] MED LIST: 0.9 % SODIUM CHLORIDE 250 ML IV SCH
[2018-04-14] MEDS ORDERED: metroNIDAZOLE 500 MG/100 ML BAG IV SCH (07:00)
[2018-04-14] MEDS ORDERED: cefOXitin 2 GM VIAL IV SCH (07:00)
[2018-04-14] MEDS ORDERED: SCOPOLAMINE 1 PATCH PATCH TOPICAL ONE (09:19)
[2018-04-14] MEDS ORDERED: HETASTARCH 6% 500 ML BAG IV ONE (09:50)
[2018-04-14] MEDS ORDERED: fentaNYL 250 MCG/5 ML VIAL IV ONE (09:50)
[2018-04-14] MEDS ORDERED: PROPOFOL 200 MG/20 ML VIAL IV ONE (09:50)
[2018-04-14] MEDS ORDERED: MIDAZOLAM 2 MG/2 ML VIAL IV ONE (09:50)
[2018-04-14] MEDS ORDERED: GLYCOPYRROLATE 0.2 MG/ML VIAL IV ONE (09:50)
[2018-04-14] MEDS ORDERED: DEXAMETHASONE 10 MG/ML VIAL IV ONE (09:50)
[2018-04-14] MEDS ORDERED: KETAMINE 10 MG/ML ML IV ONE (09:50)
[2018-04-14] MEDS ORDERED: ePHEDrine 50 MG/ML AMPUL IV ONE (09:50)
[2018-04-14] MEDS ORDERED: LIDOCAINE HCL/PF 100 MG/5 ML SYRINGE IV ONE (09:50)
[2018-04-14] MEDS ORDERED: ROCURONIUM 10 MG/ML ML IV ONE (09:50)
[2018-04-14] MEDS ORDERED: ONDANSETRON 4 MG/2 ML VIAL IV ONE (09:50)
[2018-04-14] MEDS ORDERED: cefOXitin 2 GM VIAL IV ONE (11:33)
[2018-04-14] MEDS ORDERED: ONDANSETRON 4 MG/2 ML VIAL IV PRN ×2 (12:17→13:44)
[2018-04-14] MEDS ORDERED: MEPERIDINE 25 MG/ML SYRINGE IV PRN (12:17)
[2018-04-14] MEDS ORDERED: KETOROLAC 15 MG/ML VIAL IV PRN (12:17)
[2018-04-14] MEDS ORDERED: IPRATROPIUM/ALBUTEROL 3 ML AMPUL.NEB NEB PRN (12:17)
[2018-04-14] MEDS ORDERED: PROMETHAZINE 25 MG/ML VIAL IV PRN (12:17)
[2018-04-14] MEDS ORDERED: HYDROmorphone 2 MG/ML VIAL IV PRN (12:17)
[2018-04-14] MEDS ORDERED: ACETAMINOPHEN 1,000 MG/100 ML BOTTLE IV ONE (12:17)
[2018-04-14] MEDS ORDERED: ONDANSETRON 4 MG/2 ML VIAL ONE (12:25)
--- NOTE | 2018-04-14 12:25 | Brief Operative Note ---
Date of procedure: 04/14/18 Pre-op diagnosis: sigmoid colon neoplasm Post-op diagnosis: other (sigmoid colon neoplasm) Procedure: segmental left colectomy Grafts/Implants: No Anesthesia: GETA Findings: extensive diverticulosis hard mass of mid sigmoid colon Complications: none Surgeon: Fab Robb Estimated blood loss (cc): 100 Specimens Removed/Pathology: other (colon segment) Condition: stable Disposition: PACU
[2018-04-14] MEDS: fentaNYL 100 MCG/2 ML VIAL IV PRN ×4 (12:27→12:57)
[2018-04-14] MEDS ORDERED: fentaNYL 100 MCG/2 ML VIAL IV ONE (12:28)
[2018-04-14] MEDS ORDERED: LACTATED RINGERS 1,000 ML IV SCH (12:30)
[2018-04-14] MEDS: 0.9 % SODIUM CHLORIDE 10 ML SYRINGE IV SCH ×2 (14:34→21:29)
[2018-04-14] MEDS: metroNIDAZOLE 500 MG/100 ML BAG IV SCH ×2 (15:15→21:23)
--- NOTE | 2018-04-14 15:44 | Operative Note ---
DATE OF OPERATION: 04/14/2018 PREOPERATIVE DIAGNOSIS: Sigmoid colon neoplasm. POSTOPERATIVE DIAGNOSIS: Sigmoid colon neoplasm. PROCEDURE: Segmental left colectomy. SURGEON: Fab Robb MD NUCLEAR CONTROL OPERATOR: Dr. Sung. FINDINGS: Extensive diverticulosis, hard mass of the mid sigmoid colon and multiple spilled gallstones in the pelvis as well as in the upper abdomen, subhepatic space and above the liver. DESCRIPTION OF PROCEDURE: Under general anesthesia, the patient's abdomen was prepped and draped in a sterile field. A midline incision was made. Palpation of the sigmoid colon revealed extensive diverticula. The area of the tattooing in the midsigmoid was identified and a hard mass was noted proximal to that. There were extensive adhesions in the pelvis from the diverticulosis as if the patient had had bouts of diverticulitis. These adhesions were taken down using Metzenbaum scissors, electrocautery and blunt dissection. The ureter was identified and was kept out of harm's way. The sigmoid was fully mobilized along the line of Toldt. It was very redundant and it was felt that I could do an adequate resection without removing the entire sigmoid. An area about 8 inches proximal and distal to the lesion were chosen and dissected. The colon was divided using contour stapler proximally and distally. The mesocolon was serially dissected with the larger vessels being clamped with Yuridia clamps and divided and the smaller vessels ligated with the LigaSure device. Specimen was passed off. The lateral borders of the colon were then placed in continuity and were stapled using a LISA 55 stapler. The residual opening was closed with a TA 60 stapler. The staple line was oversewn using a running locking 2-0 Prolene circumferentially. Mesenteric defect was closed with a running 2-0 Monocryl. Irrigation was carried out. The bed of dissection in the left lower quadrant was covered with Nora hemostatic powder. Sponge, needle, instrument and blade counts were verified as correct. The nasogastric tube could not be safely placed so it was elected to leave him without a nasogastric tube. The fascia and peritoneum were closed using running #1 Prolene. Subcutaneous tissue was closed with running 2-0 Monocryl. Skin was closed with naga. The patient tolerated the procedure well. He was awakened and transferred to a bed and taken to the Post-Anesthetic Care Unit in stable, satisfactory condition. LCS:sandeep Job ID: [id number] Doc ID: [id number] Fab Robb M.D.
[2018-04-14] MEDS: METOCLOPRAMIDE 10 MG/2 ML VIAL IV SCH ×2 (17:42→23:45)
[2018-04-14] MEDS: PANTOPRAZOLE 40 MG VIAL IV SCH (17:42)
[2018-04-14] MEDS: 0.9 % SODIUM CHLORIDE 1,000 ML IV SCH ×2 (17:43→21:30)
[2018-04-14] MEDS ORDERED: BENZOCAINE/MENTHOL 1 LOZENGE PO ONE (18:59)
[2018-04-14] MEDS: ACETAMINOPHEN 1,000 MG/100 ML BOTTLE IV PRN (19:20)
[2018-04-14] MEDS: HYDROmorphone 2 MG/ML VIAL IV PRN (23:47)
[2018-04-15] MEDS: metroNIDAZOLE 500 MG/100 ML BAG IV SCH (02:58)
[2018-04-15] MEDS: 0.9 % SODIUM CHLORIDE 1,000 ML IV SCH ×5 (02:58→22:31)
[2018-04-15] MEDS: ACETAMINOPHEN 1,000 MG/100 ML BOTTLE IV PRN ×3 (04:11→20:49)
[2018-04-15] MEDS: METOCLOPRAMIDE 10 MG/2 ML VIAL IV SCH ×3 (05:41→16:25)
[2018-04-15] MEDS: 0.9 % SODIUM CHLORIDE 10 ML SYRINGE IV SCH ×3 (05:43→20:51)
[2018-04-15] MEDS: PANTOPRAZOLE 40 MG VIAL IV SCH ×2 (07:46→16:25)
[2018-04-15 10:10] LABS: Basophils # (Auto) 0 K/mcL (0.0-0.3); Basophils % (Auto) 0 % (0.0-2.0); Eosinophils # (Auto) 0 K/mcL (0.0-0.7); Eosinophils % (Auto) 0 % (0.0-7.0); Granulocytes % (Auto) 91.4 % (38.0-78.0); Lymphocytes # (Auto) 0.3 K/mcL (1.5-4.8); Lymphocytes % (Auto) 2.6 % (15.5-49.0); Mean Cell Volume 91.6 fL (80.0-100.0); Mean Corpuscular HGB Conc 32.7 g/dL (31.0-36.0); Mean Corpuscular Hemoglobin 29.9 pg (26.0-34.0); Monocytes # (Auto) 0.6 K/mcL (0.1-0.9); Platelet Count 172 K/mcL (140-440); RBC 3.28 M/mcL (4.50-5.90); Red Cell Distribution Width 24.2 % (11.5-14.5)
[2018-04-15 10:11] LABS: ALT/SGPT 16 U/l (0-40); Albumin 3.2 gm/dL (3.2-5.2); Albumin/Globulin Ratio 1.4 (1.0-2.3); Alkaline Phosphatase 39 U/L (39-117); Bilirubin,Direct < 0.2 mg/dL (0.0-0.3); Blood Urea Nitrogen 27 mg/dl (8-23); Gamma Glutamyl Transpeptidase 14 U/L (8-61); Uric Acid 8.4 mg/dL (2.5-8.0)
[2018-04-15] MEDS: BENZOCAINE/MENTHOL 1 LOZENGE PO PRN (14:04)
[2018-04-15] MEDS: HYDROmorphone 2 MG/ML VIAL IV PRN ×2 (17:07→20:45)
--- NOTE | 2018-04-15 17:49 | General Surgery Progress Note ---
Subjective Narrative: Note initiated : 04/15/18 at 5:48 pm Service Date, if different from initiated Date: [] Patient: Lele Terrell 87 y/o M admitted on 04/14/18 for Segmental Left Colectomy. Chief Complaint: [] Objective Temp Pulse Resp BP Pulse Ox 98.8 F 67 20 113/59 92 04/15/18 16:00 04/15/18 16:00 04/15/18 16:00 04/15/18 16:00 04/15/18 16:00 - Additional Data Intake & Output - Last 24 hours: Intake & Output 04/13/18 04/14/18 04/15/18 04/16/18 05:59 05:59 05:59 05:59 Intake Total 3000 / 3000 1220 / 1220 Output Total 1525 / 1525 750 / 750 Balance 1475 / 1475 470 / 470 Weight 190 lb 198 lb 198 lb - Labs 04/15/18 04:22 04/15/18 04:22 Diabetes panel 04/15/18 04/15/18 04/15/18 Range/Units 04:22 04:22 04:22 Sodium Cancelled Cancelled Cancelled Potassium Cancelled Cancelled Cancelled Chloride Cancelled Cancelled Cancelled Carbon Dioxide Cancelled Cancelled Cancelled BUN Cancelled Cancelled Cancelled Creatinine Cancelled Cancelled Cancelled Glucose Cancelled Cancelled Cancelled Calcium Cancelled Cancelled Cancelled AST Cancelled Cancelled Cancelled ALT Cancelled Cancelled Cancelled Alkaline Phosphatase Cancelled Cancelled Cancelled Total Protein Cancelled Cancelled Cancelled Albumin Cancelled Cancelled Cancelled Triglycerides Cancelled Cancelled Cancelled 04/15/18 Range/Units 04:22 Sodium 138 Potassium 4.3 Chloride 103 Carbon Dioxide 24 BUN 27 H Creatinine 1.1 Glucose 119 H Calcium 8.0 L AST 17 ALT 16 Alkaline Phosphatase 39 Total Protein 5.5 L Albumin 3.2 Triglycerides 48 Calcium panel 04/15/18 04/15/18 04/15/18 Range/Units 04:22 04:22 04:22 Calcium Cancelled Cancelled Cancelled Phosphorus Cancelled Cancelled Cancelled Albumin Cancelled Cancelled Cancelled 04/15/18 Range/Units 04:22 Calcium 8.0 L Phosphorus 5.4 H Albumin 3.2 Pituitary panel 04/15/18 04/15/18 04/15/18 Range/Units 04:22 04:22 04:22 Sodium Cancelled Cancelled Cancelled Potassium Cancelled Cancelled Cancelled Chloride Cancelled Cancelled Cancelled Carbon Dioxide Cancelled Cancelled Cancelled BUN Cancelled Cancelled Cancelled Creatinine Cancelled Cancelled Cancelled Glucose Cancelled Cancelled Cancelled Calcium Cancelled Cancelled Cancelled 04/15/18 Range/Units 04:22 Sodium 138 Potassium 4.3 Chloride 103 Carbon Dioxide 24 BUN 27 H Creatinine 1.1 Glucose 119 H Calcium 8.0 L Adrenal panel 04/15/18 04/15/18 04/15/18 Range/Units 04:22 04:22 04:22 Sodium Cancelled Cancelled Cancelled Potassium Cancelled Cancelled Cancelled Chloride Cancelled Cancelled Cancelled Carbon Dioxide Cancelled Cancelled Cancelled BUN Cancelled Cancelled Cancelled Creatinine Cancelled Cancelled Cancelled Glucose Cancelled Cancelled Cancelled Calcium Cancelled Cancelled Cancelled Total Bilirubin Cancelled Cancelled Cancelled AST Cancelled Cancelled Cancelled ALT Cancelled Cancelled Cancelled Alkaline Phosphatase Cancelled Cancelled Cancelled Total Protein Cancelled Cancelled Cancelled Albumin Cancelled Cancelled Cancelled 04/15/18 Range/Units 04:22 Sodium 138 Potassium 4.3 Chloride 103 Carbon Dioxide 24 BUN 27 H Creatinine 1.1 Glucose 119 H Calcium 8.0 L Total Bilirubin 0.4 AST 17 ALT 16 Alkaline Phosphatase 39 Total Protein 5.5 L Albumin 3.2 Assessment and Plan - Time Spent With Patient Total time spent is greater than 50% in coordination of care (as documented) at patient's floor/unit and/or counseling patient:
[2018-04-16] MEDS: METOCLOPRAMIDE 10 MG/2 ML VIAL IV SCH ×4 (00:35→17:41)
[2018-04-16] MEDS: HYDROmorphone 2 MG/ML VIAL IV PRN ×3 (00:39→17:12)
[2018-04-16] MEDS: 0.9 % SODIUM CHLORIDE 10 ML SYRINGE IV SCH ×3 (05:21→22:07)
[2018-04-16 05:27] LABS: Basophils # (Auto) 0 K/mcL (0.0-0.3); Basophils % (Auto) 0 % (0.0-2.0); Eosinophils # (Auto) 0.1 K/mcL (0.0-0.7); Eosinophils % (Auto) 0.9 % (0.0-7.0); Granulocytes % (Auto) 86.2 % (38.0-78.0); Lymphocytes # (Auto) 0.5 K/mcL (1.5-4.8); Lymphocytes % (Auto) 5.2 % (15.5-49.0); Mean Cell Volume 93.3 fL (80.0-100.0); Mean Corpuscular HGB Conc 31.6 g/dL (31.0-36.0); Mean Corpuscular Hemoglobin 29.5 pg (26.0-34.0); Monocytes # (Auto) 0.8 K/mcL (0.1-0.9); Monocytes % (Auto) 7.7 % (1.0-12.0); Platelet Count 158 K/mcL (140-440); RBC 3.27 M/mcL (4.50-5.90); Red Cell Distribution Width 24.7 % (11.5-14.5)
[2018-04-16] MEDS: BENZOCAINE/MENTHOL 1 LOZENGE PO PRN ×2 (05:29→19:28)
[2018-04-16] MEDS: ACETAMINOPHEN 1,000 MG/100 ML BOTTLE IV PRN ×2 (05:29→22:49)
[2018-04-16 06:04] LABS: ALT/SGPT 14 U/l (0-40); Albumin 3.3 gm/dL (3.2-5.2); Albumin/Globulin Ratio 1.3 (1.0-2.3); Alkaline Phosphatase 37 U/L (39-117); Bilirubin,Direct < 0.2 mg/dL (0.0-0.3); Blood Urea Nitrogen 22 mg/dl (8-23); Gamma Glutamyl Transpeptidase 13 U/L (8-61); Uric Acid 7.4 mg/dL (2.5-8.0)
[2018-04-16] MEDS: PANTOPRAZOLE 40 MG VIAL IV SCH ×2 (06:49→17:08)
[2018-04-16] MEDS: 0.9 % SODIUM CHLORIDE 1,000 ML IV SCH ×3 (06:54→20:07)
--- NOTE | 2018-04-16 14:38 | General Surgery Progress Note ---
Subjective Patient reports: feels better, pain is less, afebrile Narrative: Note initiated : 04/16/18 at 2:36 pm Service Date, if different from initiated Date: [] Patient: Lele Terrell 87 y/o M admitted on 04/14/18 for Segmental Left Colectomy. Chief Complaint: [patient is 2 days status post segmental left colectomy. He is doing well. He complains of some dizziness earlier today, but that has resolved. He denies nausea. He has not had a bowel movement. His pain is fairly well controlled. She denies shortness of breath or chest Discomfort. White blood count is 10; phosphorus is 2.6] Objective Temp Pulse Resp BP Pulse Ox 97.9 F 92 H 18 160/66 90 04/16/18 12:00 04/16/18 12:00 04/16/18 12:00 04/16/18 12:00 04/16/18 12:00 - Additional Data Intake & Output - Last 24 hours: Intake & Output 04/14/18 04/15/18 04/16/18 04/17/18 05:59 05:59 05:59 05:59 Intake Total 3000 / 3000 1320 / 1320 2100 / 2100 Output Total 1525 / 1525 1200 / 1200 Balance 1475 / 1475 120 / 120 2099 / 2100 Weight 198 lb 196 lb 8 oz - General physical appearance well developed, well nourished, no distress - Eyes PERRL, normal ocular movement - ENT normal pinna, normal nares, normal mucosa, no hearing loss, no congestion - Neck no masses, no bruits, trachea midline, no lymphadectomy, no venous distension - Respiratory normal expansion, normal respiratory effort, clear to percussion, clear to auscultation - Cardiovascular Cardiovascular exam: Present: normal rate and rhythm, RRR, +S1, +S2. Absent: JVD, tachycardia - Abdomen tender (. Mild tenderness around the incision; good active bowel sounds), bowel sounds (present), surgical scars (none), masses (none) - Integumentary no rash, no growths, no abnormal pigmentation - Neurologic normal coordination, normal sensation - Musculoskeletal normal gait, normal posture - Psychiatric oriented to time, oriented to person, oriented to place, speech is normal, memory intact - Labs 04/16/18 04:38 04/16/18 04:38 Diabetes panel 04/16/18 Range/Units 04:38 Sodium 139 (133-145) mmol/L Potassium 4.2 (3.3-5.1) mmol/L Chloride 106 (96-108) mmol/L Carbon Dioxide 22 (22-30) mmol/L BUN 22 (8-23) mg/dl Creatinine 0.9 (0.7-1.2) mg/dl Glucose 78 (70-105) mg/dL Calcium 8.3 L (8.6-10.4) mg/dl AST 14 (0-37) U/l ALT 14 (0-40) U/l Alkaline Phosphatase 37 L (39-117) U/L Total Protein 5.9 (5.9-8.4) gm/dL Albumin 3.3 (3.2-5.2) gm/dL Triglycerides 75 (<150) mg/dl Calcium panel 04/16/18 Range/Units 04:38 Calcium 8.3 L (8.6-10.4) mg/dl Phosphorus 2.6 L (2.7-4.5) mg/dL Albumin 3.3 (3.2-5.2) gm/dL Pituitary panel 04/16/18 Range/Units 04:38 Sodium 139 (133-145) mmol/L Potassium 4.2 (3.3-5.1) mmol/L Chloride 106 (96-108) mmol/L Carbon Dioxide 22 (22-30) mmol/L BUN 22 (8-23) mg/dl Creatinine 0.9 (0.7-1.2) mg/dl Glucose 78 (70-105) mg/dL Calcium 8.3 L (8.6-10.4) mg/dl Adrenal panel 04/16/18 Range/Units 04:38 Sodium 139 (133-145) mmol/L Potassium 4.2 (3.3-5.1) mmol/L Chloride 106 (96-108) mmol/L Carbon Dioxide 22 (22-30) mmol/L BUN 22 (8-23) mg/dl Creatinine 0.9 (0.7-1.2) mg/dl Glucose 78 (70-105) mg/dL Calcium 8.3 L (8.6-10.4) mg/dl Total Bilirubin 0.4 (0.0-1.0) mg/dL AST 14 (0-37) U/l ALT 14 (0-40) U/l Alkaline Phosphatase 37 L (39-117) U/L Total Protein 5.9 (5.9-8.4) gm/dL Albumin 3.3 (3.2-5.2) gm/dL Assessment and Plan (1) Malignant neoplasm of left colon Status: Acute Assessment and plan: We will replace phosphorus Check abdominal x-rays in the morning Current Visit: No (2) Gastroesophageal reflux disease Status: Chronic Current Visit: No (3) Atherosclerotic heart disease Status: Chronic Current Visit: No (4) Hypertension, essential Status: Chronic Current Visit: No - Time Spent With Patient Total time spent is greater than 50% in coordination of care (as documented) at patient's floor/unit and/or counseling patient:
[2018-04-16] MEDS ORDERED: POTASSIUM PHOSPHATE 40 MEQ in DEXTROSE 5% IN WATER 500 ML IV ONE (15:00)
[2018-04-16] MEDS ORDERED: METOPROLOL TARTRATE 5 MG/5 ML VIAL IV ONE ×2 (19:49→20:03)
[2018-04-16] MEDS: ATENOLOL 50 MG TABLET PO SCH (22:07)
[2018-04-17] MEDS: METOCLOPRAMIDE 10 MG/2 ML VIAL IV SCH ×5 (00:03→23:56)
[2018-04-17] MEDS: 0.9 % SODIUM CHLORIDE 1,000 ML IV SCH ×3 (05:29→21:02)
[2018-04-17] MEDS: ACETAMINOPHEN 1,000 MG/100 ML BOTTLE IV PRN (05:29)
[2018-04-17] MEDS: 0.9 % SODIUM CHLORIDE 10 ML SYRINGE IV SCH ×3 (05:30→21:02)
[2018-04-17] MEDS: BENZOCAINE/MENTHOL 1 LOZENGE PO PRN (05:36)
[2018-04-17 05:51] LABS: Basophils # (Auto) 0 K/mcL (0.0-0.3); Basophils % (Auto) 0.2 % (0.0-2.0); Eosinophils # (Auto) 0.2 K/mcL (0.0-0.7); Eosinophils % (Auto) 2.1 % (0.0-7.0); Granulocytes % (Auto) 82.7 % (38.0-78.0); Lymphocytes # (Auto) 0.6 K/mcL (1.5-4.8); Lymphocytes % (Auto) 7.1 % (15.5-49.0); Mean Cell Volume 93.6 fL (80.0-100.0); Mean Corpuscular HGB Conc 32.3 g/dL (31.0-36.0); Mean Corpuscular Hemoglobin 30.2 pg (26.0-34.0); Monocytes # (Auto) 0.6 K/mcL (0.1-0.9); Monocytes % (Auto) 7.9 % (1.0-12.0); Platelet Count 155 K/mcL (140-440); Red Cell Distribution Width 24.9 % (11.5-14.5)
[2018-04-17 06:16] LABS: ALT/SGPT 13 U/l (0-40); Albumin 3.4 gm/dL (3.2-5.2); Albumin/Globulin Ratio 1.4 (1.0-2.3); Alkaline Phosphatase 37 U/L (39-117); Bilirubin,Direct < 0.2 mg/dL (0.0-0.3); Blood Urea Nitrogen 20 mg/dl (8-23); Gamma Glutamyl Transpeptidase 12 U/L (8-61)
[2018-04-17] MEDS: PANTOPRAZOLE 40 MG VIAL IV SCH ×2 (07:15→17:57)
[2018-04-17] MEDS: ATENOLOL 50 MG TABLET PO SCH ×2 (08:51→21:01)
--- NOTE | 2018-04-17 13:33 | General Surgery Progress Note ---
Subjective Patient reports: feels better, pain is less, flatus, no bowel movement, afebrile Narrative: Note initiated : 04/17/18 at 1:31 pm Service Date, if different from initiated Date: [] Patient: Lele Terrell 87 y/o M admitted on 04/14/18 for Segmental Left Colectomy. Chief Complaint: [patient is doing well. He had some difficulty voiding, but does not wish to have a Gentile catheter. He is voiding better with smaller residuals. He started having flatus. His pain is improved.] Objective Temp Pulse Resp BP Pulse Ox 98.6 F 72 16 151/92 94 04/17/18 11:46 04/17/18 08:00 04/17/18 11:46 04/17/18 11:46 04/17/18 11:46 - Additional Data Intake & Output - Last 24 hours: Intake & Output 04/15/18 04/16/18 04/17/18 04/18/18 05:59 05:59 05:59 05:59 Intake Total 3000 / 3000 1320 / 1320 3400 / 3400 160 / 160 Output Total 1525 / 1525 1200 / 1200 200 / 200 550 / 550 Balance 1475 / 1475 120 / 120 3200 / 3200 -390 / -390 Weight 198 lb 196 lb 8 oz 198 lb 8 oz - General physical appearance well developed, well nourished, no distress - Eyes PERRL, normal ocular movement - ENT normal pinna, normal nares, normal mucosa, no hearing loss, no congestion - Neck no masses, no bruits, trachea midline, no venous distension - Respiratory normal expansion, normal respiratory effort, clear to auscultation - Cardiovascular Cardiovascular exam: Present: normal rate and rhythm, RRR, +S1, +S2. Absent: JVD, tachycardia - Abdomen tender (mild incisional tenderness, otherwise unremarkable) - Integumentary no rash, no growths, no abnormal pigmentation - Neurologic normal coordination, normal sensation - Musculoskeletal normal gait, normal posture - Psychiatric oriented to time, oriented to person, oriented to place, speech is normal, memory intact - Labs 04/17/18 04:30 04/17/18 04:30 Diabetes panel 04/17/18 Range/Units 04:30 Sodium 140 (133-145) mmol/L Potassium 4.6 (3.3-5.1) mmol/L Chloride 107 (96-108) mmol/L Carbon Dioxide 24 (22-30) mmol/L BUN 20 (8-23) mg/dl Creatinine 0.9 (0.7-1.2) mg/dl Glucose 96 (70-105) mg/dL Calcium 8.4 L (8.6-10.4) mg/dl AST 19 (0-37) U/l ALT 13 (0-40) U/l Alkaline Phosphatase 37 L (39-117) U/L Total Protein 5.9 (5.9-8.4) gm/dL Albumin 3.4 (3.2-5.2) gm/dL Triglycerides 86 (<150) mg/dl Calcium panel 04/17/18 Range/Units 04:30 Calcium 8.4 L (8.6-10.4) mg/dl Phosphorus 2.5 L (2.7-4.5) mg/dL Albumin 3.4 (3.2-5.2) gm/dL Pituitary panel 04/17/18 Range/Units 04:30 Sodium 140 (133-145) mmol/L Potassium 4.6 (3.3-5.1) mmol/L Chloride 107 (96-108) mmol/L Carbon Dioxide 24 (22-30) mmol/L BUN 20 (8-23) mg/dl Creatinine 0.9 (0.7-1.2) mg/dl Glucose 96 (70-105) mg/dL Calcium 8.4 L (8.6-10.4) mg/dl Adrenal panel 04/17/18 Range/Units 04:30 Sodium 140 (133-145) mmol/L Potassium 4.6 (3.3-5.1) mmol/L Chloride 107 (96-108) mmol/L Carbon Dioxide 24 (22-30) mmol/L BUN 20 (8-23) mg/dl Creatinine 0.9 (0.7-1.2) mg/dl Glucose 96 (70-105) mg/dL Calcium 8.4 L (8.6-10.4) mg/dl Total Bilirubin 0.4 (0.0-1.0) mg/dL AST 19 (0-37) U/l ALT 13 (0-40) U/l Alkaline Phosphatase 37 L (39-117) U/L Total Protein 5.9 (5.9-8.4) gm/dL Albumin 3.4 (3.2-5.2) gm/dL Assessment and Plan (1) Malignant neoplasm of left colon Status: Acute Assessment and plan: We will replace phosphorus Advanced to clear liquids Current Visit: No (2) Gastroesophageal reflux disease Status: Chronic Current Visit: No (3) Atherosclerotic heart disease Status: Chronic Current Visit: No (4) Hypertension, essential Status: Chronic Current Visit: No - Time Spent With Patient Total time spent is greater than 50% in coordination of care (as documented) at patient's floor/unit and/or counseling patient:
[2018-04-17] MEDS ORDERED: POTASSIUM PHOSPHATE 40 MEQ in DEXTROSE 5% IN WATER 500 ML IV ONE (13:35)
[2018-04-17] MEDS: HYDROmorphone 2 MG/ML VIAL IV PRN (18:08)
[2018-04-18] MEDS: 0.9 % SODIUM CHLORIDE 1,000 ML IV SCH (03:53)
[2018-04-18] MEDS: 0.9 % SODIUM CHLORIDE 10 ML SYRINGE IV SCH ×3 (06:11→20:36)
[2018-04-18] MEDS: METOCLOPRAMIDE 10 MG/2 ML VIAL IV SCH ×3 (06:11→17:54)
[2018-04-18] MEDS ORDERED: FUROSEMIDE 40 MG/4 ML VIAL IV ONE (06:58)
[2018-04-18] MEDS: PANTOPRAZOLE 40 MG VIAL IV SCH ×2 (07:13→16:49)
--- NOTE | 2018-04-18 07:48 | XRay Report ---
CLINICAL INFORMATION: Shortness of breath COMPARISON: 04/12/2018 FINDINGS: Mild cardiomegaly is unchanged. Mitral annular calcification again noted. Sternotomy/CABG changes noted. Mediastinum is unremarkable. Pulmonary vessels are now mildly distended there is mild interstitial edema throughout both lungs. Small bilateral pleural effusions have developed IMPRESSION: Mild CHF - new Interpreted and Authenticated by: Jose Juárez 04/18/18
[2018-04-18] MEDS: ATENOLOL 50 MG TABLET PO SCH ×2 (07:55→20:31)
[2018-04-18] MEDS: SERTRALINE 50 MG TABLET PO SCH (07:55)
[2018-04-18] MEDS: ACETAMINOPHEN 1,000 MG/100 ML BOTTLE IV PRN (10:31)
[2018-04-18] MEDS: HYDROmorphone 2 MG/ML VIAL IV PRN (12:00)
--- NOTE | 2018-04-18 14:44 | General Surgery Progress Note ---
Subjective Patient reports: still having pain, pain is less, tolerating liquids well, flatus, bowel movement, afebrile Narrative: Note initiated : 04/18/18 at 2:42 pm Service Date, if different from initiated Date: [] Patient: Lele Terrell 87 y/o M admitted on 04/14/18 for Segmental Left Colectomy. Chief Complaint: [ppatient is well.. He had some volume overload and experience shortness of breath last evening. His proBNP was 5720.. Chest x-ray showed early changes of congestive heart failure.. He received 40 mg of Lasix IV and is IV fluids were saline locked. He states that he feels much better but still has mild dyspnea. He has tolerated clear liquids without difficulty Passing flatus and had bowel movements.] Objective Temp Pulse Resp BP Pulse Ox 98.2 F 87 20 162/88 93 04/18/18 12:00 04/18/18 07:00 04/18/18 12:00 04/18/18 12:00 04/18/18 12:00 - Additional Data Intake & Output - Last 24 hours: Intake & Output 04/16/18 04/17/18 04/18/18 04/19/18 05:59 05:59 05:59 05:59 Intake Total 1320 / 1320 3400 / 3400 1920 / 1920 500 / 500 Output Total 1200 / 1200 200 / 200 1950 / 1950 450 / 450 Balance 120 / 120 3200 / 3200 -30 / -30 50 / 50 Weight 196 lb 8 oz 198 lb 8 oz 199 lb 8 oz - General physical appearance no distress, moderate pain - Eyes PERRL, normal ocular movement - ENT normal pinna, normal nares, normal mucosa, no hearing loss, no congestion - Neck no masses, no bruits, trachea midline, no venous distension - Respiratory normal expansion, normal respiratory effort, clear to percussion, other ( basilar rales, rhonchi, wheezes) - Cardiovascular Cardiovascular exam: Present: normal rate and rhythm, JVD, RRR, +S1, +S2. Absent: tachycardia - Abdomen non tender, bowel sounds (present), surgical scars ( without ecchymosis of the incision), masses (none) - Integumentary no rash, no growths, no abnormal pigmentation - Neurologic normal coordination, normal sensation - Musculoskeletal normal gait, normal posture - Psychiatric oriented to time, oriented to person, oriented to place, speech is normal, memory intact - Labs 04/17/18 04:30 04/17/18 04:30 Assessment and Plan (1) Malignant neoplasm of left colon Status: Acute Assessment and plan: We will replace phosphorus Advanced to and full liquids. Lasix 40 mg by mouth twice a day 2 doses.. KCl 20 mEq by mouth twice a day Check CBC, inpatient panel and proBNP Current Visit: No (2) Gastroesophageal reflux disease Status: Chronic Current Visit: No (3) Atherosclerotic heart disease Status: Chronic Current Visit: No (4) Hypertension, essential Status: Chronic Current Visit: No - Time Spent With Patient Total time spent is greater than 50% in coordination of care (as documented) at patient's floor/unit and/or counseling patient:
[2018-04-18] MEDS: FUROSEMIDE 40 MG TABLET PO SCH (15:52)
[2018-04-18] MEDS: POTASSIUM CHLORIDE 20 MEQ TABLET PO SCH (17:54)
[2018-04-19] MEDS: METOCLOPRAMIDE 10 MG/2 ML VIAL IV SCH ×5 (00:02→23:40)
[2018-04-19 06:40] LABS: Basophils # (Auto) 0 K/mcL (0.0-0.3); Basophils % (Auto) 0.1 % (0.0-2.0); Eosinophils # (Auto) 0.3 K/mcL (0.0-0.7); Eosinophils % (Auto) 4.6 % (0.0-7.0); Granulocytes % (Auto) 78.5 % (38.0-78.0); Lymphocytes # (Auto) 0.5 K/mcL (1.5-4.8); Lymphocytes % (Auto) 7.6 % (15.5-49.0); Mean Cell Volume 92.5 fL (80.0-100.0); Mean Corpuscular HGB Conc 32.3 g/dL (31.0-36.0); Mean Corpuscular Hemoglobin 29.8 pg (26.0-34.0); Monocytes # (Auto) 0.7 K/mcL (0.1-0.9); Monocytes % (Auto) 9.2 % (1.0-12.0); Platelet Count 180 K/mcL (140-440); RBC 3.21 M/mcL (4.50-5.90); Red Cell Distribution Width 24.5 % (11.5-14.5)
[2018-04-19] MEDS: 0.9 % SODIUM CHLORIDE 10 ML SYRINGE IV SCH ×3 (07:43→21:03)
[2018-04-19] MEDS: PANTOPRAZOLE 40 MG VIAL IV SCH ×2 (07:43→16:15)
[2018-04-19 07:45] LABS: ALT/SGPT 14 U/l (0-40); Albumin 3.2 gm/dL (3.2-5.2); Albumin/Globulin Ratio 1.2 (1.0-2.3); Alkaline Phosphatase 38 U/L (39-117); Bilirubin,Direct < 0.2 mg/dL (0.0-0.3); Blood Urea Nitrogen 17 mg/dl (8-23); Gamma Glutamyl Transpeptidase 12 U/L (8-61); Uric Acid 8.2 mg/dL (2.5-8.0)
[2018-04-19] MEDS: SERTRALINE 50 MG TABLET PO SCH (09:15)
[2018-04-19] MEDS: ATENOLOL 50 MG TABLET PO SCH ×2 (09:15→21:03)
[2018-04-19] MEDS: FUROSEMIDE 40 MG TABLET PO SCH ×2 (09:15→16:15)
[2018-04-19] MEDS: POTASSIUM CHLORIDE 20 MEQ TABLET PO SCH ×2 (09:15→17:20)
[2018-04-19] MEDS: ACETAMINOPHEN 1,000 MG/100 ML BOTTLE IV PRN (14:21)
--- NOTE | 2018-04-19 17:17 | General Surgery Progress Note ---
Subjective Patient reports: feels better, pain is less, tolerating liquids well, flatus, bowel movement, afebrile Narrative: Note initiated : 04/19/18 at 5:14 pm Service Date, if different from initiated Date: [] Patient: Lele Terrell 87 y/o M admitted on 04/14/18 for Segmental Left Colectomy. Chief Complaint: [patient continues to improve. He is having flatus but no bowel movement.. He denies nausea. He has tolerated full liquid diet without difficulty.] Objective Temp Pulse Resp BP Pulse Ox 98.6 F 76 18 95/66 91 04/19/18 16:15 04/19/18 04:00 04/19/18 16:15 04/19/18 16:15 04/19/18 16:15 - Additional Data Intake & Output - Last 24 hours: Intake & Output 04/17/18 04/18/18 04/19/18 04/20/18 05:59 05:59 05:59 05:59 Intake Total 3400 / 3400 1920 / 1920 1900 / 1900 240 / 240 Output Total 200 / 200 1950 / 1950 1050 / 1050 2450 / 2450 Balance 3200 / 3200 -30 / -30 850 / 850 -2210 / -2210 Weight 198 lb 8 oz 199 lb 8 oz 198 lb 6.4 oz 198 lb 6.4 oz - General physical appearance well developed, well nourished, no distress - Eyes PERRL, normal ocular movement - ENT normal pinna, normal nares, normal mucosa, no hearing loss, no congestion - Neck no masses, no bruits, trachea midline, no venous distension - Respiratory normal expansion, normal respiratory effort, clear to percussion, clear to auscultation - Cardiovascular Cardiovascular exam: Present: normal rate and rhythm, RRR, +S1, +S2. Absent: JVD, tachycardia - Abdomen soft, tender (abdomen is soft with minimal tenderness; he has good active bowel sounds.) - Integumentary no rash, no growths, no abnormal pigmentation - Neurologic normal coordination, normal sensation - Musculoskeletal normal gait, normal posture - Psychiatric oriented to time, oriented to person, oriented to place, speech is normal, memory intact - Labs 04/19/18 04:58 04/19/18 04:58 Diabetes panel 04/19/18 Range/Units 04:58 Sodium 140 (133-145) mmol/L Potassium 3.9 (3.3-5.1) mmol/L Chloride 102 (96-108) mmol/L Carbon Dioxide 25 (22-30) mmol/L BUN 17 (8-23) mg/dl Creatinine 1.0 (0.7-1.2) mg/dl Glucose 98 (70-105) mg/dL Calcium 8.8 (8.6-10.4) mg/dl AST 15 (0-37) U/l ALT 14 (0-40) U/l Alkaline Phosphatase 38 L (39-117) U/L Total Protein 5.9 (5.9-8.4) gm/dL Albumin 3.2 (3.2-5.2) gm/dL Triglycerides 96 (<150) mg/dl Calcium panel 04/19/18 Range/Units 04:58 Calcium 8.8 (8.6-10.4) mg/dl Phosphorus 2.8 (2.7-4.5) mg/dL Albumin 3.2 (3.2-5.2) gm/dL Pituitary panel 04/19/18 Range/Units 04:58 Sodium 140 (133-145) mmol/L Potassium 3.9 (3.3-5.1) mmol/L Chloride 102 (96-108) mmol/L Carbon Dioxide 25 (22-30) mmol/L BUN 17 (8-23) mg/dl Creatinine 1.0 (0.7-1.2) mg/dl Glucose 98 (70-105) mg/dL Calcium 8.8 (8.6-10.4) mg/dl Adrenal panel 04/19/18 Range/Units 04:58 Sodium 140 (133-145) mmol/L Potassium 3.9 (3.3-5.1) mmol/L Chloride 102 (96-108) mmol/L Carbon Dioxide 25 (22-30) mmol/L BUN 17 (8-23) mg/dl Creatinine 1.0 (0.7-1.2) mg/dl Glucose 98 (70-105) mg/dL Calcium 8.8 (8.6-10.4) mg/dl Total Bilirubin 0.6 (0.0-1.0) mg/dL AST 15 (0-37) U/l ALT 14 (0-40) U/l Alkaline Phosphatase 38 L (39-117) U/L Total Protein 5.9 (5.9-8.4) gm/dL Albumin 3.2 (3.2-5.2) gm/dL Assessment and Plan (1) Malignant neoplasm of left colon Status: Acute Assessment and plan: We will replace phosphorus GI soft diet Lasix 40 mg by mouth twice a day 2 doses.. KCl 20 mEq by mouth twice a day Current Visit: No (2) Gastroesophageal reflux disease Status: Chronic Current Visit: No (3) Atherosclerotic heart disease Status: Chronic Current Visit: No (4) Hypertension, essential Status: Chronic Current Visit: No - Time Spent With Patient Total time spent is greater than 50% in coordination of care (as documented) at patient's floor/unit and/or counseling patient:
[2018-04-19] MEDS: oxyCODONE HCL 5 MG TABLET PO PRN (21:34)
[2018-04-20] MEDS: METOCLOPRAMIDE 10 MG/2 ML VIAL IV SCH ×3 (05:13→17:40)
[2018-04-20] MEDS: 0.9 % SODIUM CHLORIDE 10 ML SYRINGE IV SCH ×2 (05:13→14:30)
[2018-04-20 05:41] LABS: ALT/SGPT 13 U/l (0-40); Albumin 3.4 gm/dL (3.2-5.2); Albumin/Globulin Ratio 1.4 (1.0-2.3); Alkaline Phosphatase 38 U/L (39-117); Bilirubin,Direct < 0.2 mg/dL (0.0-0.3); Blood Urea Nitrogen 19 mg/dl (8-23); Gamma Glutamyl Transpeptidase 13 U/L (8-61); Uric Acid 8.1 mg/dL (2.5-8.0)
[2018-04-20 05:46] LABS: Basophils # (Auto) 0 K/mcL (0.0-0.3); Basophils % (Auto) 0.3 % (0.0-2.0); Eosinophils # (Auto) 0.4 K/mcL (0.0-0.7); Eosinophils % (Auto) 6.6 % (0.0-7.0); Granulocytes % (Auto) 73.9 % (38.0-78.0); Lymphocytes # (Auto) 0.7 K/mcL (1.5-4.8); Lymphocytes % (Auto) 10.7 % (15.5-49.0); Mean Cell Volume 92.5 fL (80.0-100.0); Mean Corpuscular HGB Conc 32.6 g/dL (31.0-36.0); Mean Corpuscular Hemoglobin 30.1 pg (26.0-34.0); Monocytes # (Auto) 0.6 K/mcL (0.1-0.9); Monocytes % (Auto) 8.5 % (1.0-12.0); Platelet Count 199 K/mcL (140-440); RBC 3.32 M/mcL (4.50-5.90); Red Cell Distribution Width 24.3 % (11.5-14.5)
[2018-04-20] MEDS: PANTOPRAZOLE 40 MG VIAL IV SCH ×2 (07:10→17:40)
[2018-04-20] MEDS: SERTRALINE 50 MG TABLET PO SCH (09:32)
[2018-04-20] MEDS: FUROSEMIDE 40 MG TABLET PO SCH ×2 (09:32→16:07)
[2018-04-20] MEDS: ATENOLOL 50 MG TABLET PO SCH ×2 (09:32→21:44)
[2018-04-20] MEDS: POTASSIUM CHLORIDE 20 MEQ TABLET PO SCH ×2 (09:32→17:40)
[2018-04-20] MEDS: oxyCODONE HCL 5 MG TABLET PO PRN ×2 (11:46→21:44)
--- NOTE | 2018-04-20 17:26 | General Surgery Progress Note ---
Subjective Patient reports: feels better, pain is less, flatus, bowel movement, afebrile Narrative: Note initiated : 04/20/18 at 5:24 pm Service Date, if different from initiated Date: [] Patient: Lele Terrell 87 y/o M admitted on 04/14/18 for Segmental Left Colectomy. Chief Complaint: [patient has done well.. He no longer complains of shortness of breath. He has had flatus and bowel movements today. His abdominal pain is much improved.. He was tolerating soft diet without difficulty.] Objective Temp Pulse Resp BP Pulse Ox 98.4 F 88 18 117/68 96 04/20/18 16:06 04/20/18 09:30 04/20/18 16:06 04/20/18 16:06 04/20/18 16:06 - Additional Data Intake & Output - Last 24 hours: Intake & Output 04/18/18 04/19/18 04/20/18 04/21/18 05:59 05:59 05:59 05:59 Intake Total 1920 / 1920 1900 / 1900 690 / 690 740 / 740 Output Total 1950 / 1950 1050 / 1050 4700 / 4700 600 / 600 Balance -30 / -30 850 / 850 -4010 / -4010 140 / 140 Weight 199 lb 8 oz 198 lb 6.4 oz 195 lb - General physical appearance well developed, well nourished, no distress, severe distress - Eyes PERRL, normal ocular movement - ENT normal pinna, normal nares, normal mucosa, no hearing loss, no congestion - Neck no masses, no bruits, trachea midline, no venous distension - Respiratory normal expansion, normal respiratory effort, clear to percussion, clear to auscultation - Cardiovascular Cardiovascular exam: Present: normal rate and rhythm, RRR, +S1, +S2. Absent: JVD - Abdomen tender (mmmmmmild incisional tenderness. Otherwise benign abdominal exam) - Integumentary no rash, no growths, no abnormal pigmentation - Neurologic normal coordination, normal sensation - Musculoskeletal normal gait, normal posture - Psychiatric oriented to time, oriented to person, oriented to place, speech is normal, memory intact - Labs 04/20/18 04:05 04/20/18 04:05 Diabetes panel 04/20/18 Range/Units 04:05 Sodium 139 (133-145) mmol/L Potassium 3.8 (3.3-5.1) mmol/L Chloride 99 (96-108) mmol/L Carbon Dioxide 29 (22-30) mmol/L BUN 19 (8-23) mg/dl Creatinine 1.1 (0.7-1.2) mg/dl Glucose 105 (70-105) mg/dL Calcium 9.0 (8.6-10.4) mg/dl AST 12 (0-37) U/l ALT 13 (0-40) U/l Alkaline Phosphatase 38 L (39-117) U/L Total Protein 5.9 (5.9-8.4) gm/dL Albumin 3.4 (3.2-5.2) gm/dL Triglycerides 125 (<150) mg/dl Calcium panel 04/20/18 Range/Units 04:05 Calcium 9.0 (8.6-10.4) mg/dl Phosphorus 3.0 (2.7-4.5) mg/dL Albumin 3.4 (3.2-5.2) gm/dL Pituitary panel 04/20/18 Range/Units 04:05 Sodium 139 (133-145) mmol/L Potassium 3.8 (3.3-5.1) mmol/L Chloride 99 (96-108) mmol/L Carbon Dioxide 29 (22-30) mmol/L BUN 19 (8-23) mg/dl Creatinine 1.1 (0.7-1.2) mg/dl Glucose 105 (70-105) mg/dL Calcium 9.0 (8.6-10.4) mg/dl Adrenal panel 04/20/18 Range/Units 04:05 Sodium 139 (133-145) mmol/L Potassium 3.8 (3.3-5.1) mmol/L Chloride 99 (96-108) mmol/L Carbon Dioxide 29 (22-30) mmol/L BUN 19 (8-23) mg/dl Creatinine 1.1 (0.7-1.2) mg/dl Glucose 105 (70-105) mg/dL Calcium 9.0 (8.6-10.4) mg/dl Total Bilirubin 0.5 (0.0-1.0) mg/dL AST 12 (0-37) U/l ALT 13 (0-40) U/l Alkaline Phosphatase 38 L (39-117) U/L Total Protein 5.9 (5.9-8.4) gm/dL Albumin 3.4 (3.2-5.2) gm/dL Assessment and Plan (1) Malignant neoplasm of left colon Status: Acute Assessment and plan: We will replace phosphorus GI soft diet Lasix 40 mg by mouth twice a day 2 doses.. KCl 20 mEq by mouth twice a day Current Visit: No (2) Gastroesophageal reflux disease Status: Chronic Current Visit: No (3) Atherosclerotic heart disease Status: Chronic Current Visit: No (4) Hypertension, essential Status: Chronic Current Visit: No - Time Spent With Patient Total time spent is greater than 50% in coordination of care (as documented) at patient's floor/unit and/or counseling patient:
[2018-04-21] MEDS: 0.9 % SODIUM CHLORIDE 10 ML SYRINGE IV SCH ×2 (00:21→05:28)
[2018-04-21] MEDS: METOCLOPRAMIDE 10 MG/2 ML VIAL IV SCH ×3 (00:21→12:07)
[2018-04-21 06:52] LABS: ALT/SGPT 12 U/l (0-40); Albumin 3.3 gm/dL (3.2-5.2); Albumin/Globulin Ratio 1.2 (1.0-2.3); Alkaline Phosphatase 39 U/L (39-117); Bilirubin,Direct < 0.2 mg/dL (0.0-0.3); Blood Urea Nitrogen 21 mg/dl (8-23); Gamma Glutamyl Transpeptidase 13 U/L (8-61); Uric Acid 8.2 mg/dL (2.5-8.0)
[2018-04-21 06:56] LABS: Basophils # (Auto) 0 K/mcL (0.0-0.3); Basophils % (Auto) 0.3 % (0.0-2.0); Eosinophils # (Auto) 0.4 K/mcL (0.0-0.7); Eosinophils % (Auto) 5.7 % (0.0-7.0); Granulocytes % (Auto) 73.4 % (38.0-78.0); Lymphocytes # (Auto) 0.8 K/mcL (1.5-4.8); Lymphocytes % (Auto) 11.9 % (15.5-49.0); Mean Cell Volume 92.9 fL (80.0-100.0); Mean Corpuscular HGB Conc 32.5 g/dL (31.0-36.0); Mean Corpuscular Hemoglobin 30.2 pg (26.0-34.0); Monocytes # (Auto) 0.6 K/mcL (0.1-0.9); Monocytes % (Auto) 8.7 % (1.0-12.0); Platelet Count 186 K/mcL (140-440); RBC 3.34 M/mcL (4.50-5.90)
[2018-04-21] MEDS: PANTOPRAZOLE 40 MG VIAL IV SCH (07:25)
[2018-04-21] MEDS: SERTRALINE 50 MG TABLET PO SCH (08:09)
[2018-04-21] MEDS: FUROSEMIDE 40 MG TABLET PO SCH (08:09)
[2018-04-21] MEDS: ATENOLOL 50 MG TABLET PO SCH (08:09)
[2018-04-21] MEDS: POTASSIUM CHLORIDE 20 MEQ TABLET PO SCH (08:10)
--- NOTE | 2018-04-21 14:14 | XRay Report ---
HISTORY: Chest and back pain FINDINGS: The heart size is within normal limits. There has been prior coronary bypass surgery. The congestive heart failure seen on 04/18/18 has resolved. There is residual minor blunting of the left costophrenic sulcus. There is no evidence of pneumonia or pulmonary mass. IMPRESSION: Resolved congestive heart failure Interpreted and Authenticated by: Braden Gerber 04/21/18
--- NOTE | 2018-04-21 14:21 | Discharge Summary ---
Providers - Providers Patient information: Note initiated : 04/21/18 at 2:20 pm Service Date, if different from initiated Date: [] Patient: eLle Terrell 87 y/o M admitted on 04/14/18 for Segmental Left Colectomy. Chief Complaint: [] Date of admission: 04/14/18 Discharge date: 04/21/18 Attending physician: Fab Robb Hospitalization Hospital course: 87-year-old male was admitted for segmental left colectomy. He had a small lesion that was dissected primarily with a primary anastomosis. He had an uncomplicated postoperative course except for mild volume overload which was treated with IV Lasix, fluid restriction and potassium chloride replacement. His volume has resolved and chest x-ray today is normal. He was started on regular diet yesterday and has tolerated it well. He is having regular bowel movements and passing flatus. Other lab work is unremarkable. He is stable for discharge home. Discharge diagnosis: adenocarcinoma, sigmoid colon Secondary discharge diagnosis: Diverticulosis Coronary artery disease. Essential hypertension. Cerebrovascular insufficiency.. Deficiency anemia due to chronic blood loss. Depression Reason for admission: adenocarcinoma left colon Procedures: Segmental left colectomy Complications: None Exam Temp Pulse Resp BP Pulse Ox 98.3 F 88 18 121/68 97 04/21/18 11:11 04/21/18 11:11 04/21/18 11:11 04/21/18 11:11 04/21/18 13:36 - General physical appearance well developed, well nourished, no distress - Eyes PERRL, normal ocular movement - ENT normal pinna, normal nares, normal mucosa, no hearing loss, no congestion - Head Head exam IM: Present: atraumatic, normocephalic - Neck no masses, no bruits, trachea midline, no lymphadectomy, no venous distension - Cardiovascular Cardiovascular exam IM: Present: normal rate and rhythm - Respiratory normal expansion, normal respiratory effort, clear to percussion, clear to auscultation - Abdomen Abdomen: Present: soft, non tender, bowel sounds Hernia: Present: none - Genitourinary Present: normal penis with no external lesions - Rectum Rectum: Present: normal sphincter tone, no hemorrhoids, no tenderness, no masses , no bleeding - Integumentary Present: no rash, no growths, no abnormal pigmentation - Neurologic Present: normal coordination, normal sensation - Musculoskeletal Present: normal gait, normal posture - Psychiatric Present: oriented to time, oriented to person, oriented to place, speech is normal, memory intact Discharge Plan - Patient/Caregiver Discharge Instructions Activity: increase activity as tolerated Diet: Regular Diet Additional Instructions: Follow-up in the office in 2 weeks as directed - Follow up Plan Disposition: Home, Self-Care Prognosis: Good Rehab Potential: Good I certify that the patient requires SNF services.: No Overall status at discharge: patient is not back to baseline Pending Studies Resuscitation Status Full Code Diet Regular Diet Start ThuApr 19 1745 Atenolol (Tenormin) 50 mg PO BID [facility] Last Admin: 04/21/18 08:09 Dose: 50 mg Admin: 04/20/18 21:44 Dose: 50 mg Admin: 04/20/18 09:32 Dose: 50 mg Admin: 04/19/18 21:03 Dose: 50 mg Admin: 04/19/18 09:15 Dose: 50 mg Admin: 04/18/18 20:31 Dose: 50 mg Admin: 04/18/18 07:55 Dose: 50 mg Furosemide (Lasix) 40 mg PO BIDD [facility] Last Admin: 04/21/18 08:09 Dose: 40 mg Admin: 04/20/18 16:07 Dose: 40 mg Admin: 04/20/18 09:32 Dose: 40 mg Admin: 04/19/18 16:15 Dose: 40 mg Admin: 04/19/18 09:15 Dose: 40 mg Admin: 04/18/18 15:52 Dose: 40 mg Hydromorphone HCl (Dilaudid) 1 mg IV Q2HP PRN PRN Reason: PAIN LEVEL > 6 Last Admin: 04/18/18 12:00 Dose: 1 mg Admin: 04/17/18 18:08 Dose: 1 mg Admin: 04/16/18 17:12 Dose: 1 mg Admin: 04/16/18 09:29 Dose: 1 mg Admin: 04/16/18 00:39 Dose: 1 mg Admin: 04/15/18 20:45 Dose: 1 mg Admin: 04/15/18 17:07 Dose: 1 mg Admin: 04/14/18 23:47 Dose: 1 mg Acetaminophen (Ofirmev) 1,000 mg in 100 mls @ 200 mls/hr IV Q6HP PRN PRN Reason: Pain Last Infusion: 04/19/18 15:00 Dose: 0 mls/hr Admin: 04/19/18 14:21 Dose: 200 mls/hr Infusion: 04/18/18 11:07 Dose: 0 mls/hr Admin: 04/18/18 10:31 Dose: 200 mls/hr Infusion: 04/17/18 06:00 Dose: 0 mls/hr Admin: 04/17/18 05:29 Dose: 200 mls/hr Infusion: 04/16/18 23:19 Dose: 0 mls/hr Admin: 04/16/18 22:49 Dose: 200 mls/hr Infusion: 04/16/18 06:40 Dose: 0 mls/hr Admin: 04/16/18 05:29 Dose: 200 mls/hr Infusion: 04/15/18 21:20 Dose: 0 mls/hr Admin: 04/15/18 20:49 Dose: 200 mls/hr Infusion: 04/15/18 14:03 Dose: 0 mls/hr Admin: 04/15/18 13:33 Dose: 200 mls/hr Infusion: 04/15/18 05:18 Dose: 0 mls/hr Admin: 04/15/18 04:11 Dose: 200 mls/hr Infusion: 04/14/18 19:50 Dose: 200 mls/hr Admin: 04/14/18 19:20 Dose: 200 mls/hr Metoclopramide HCl (Reglan) 10 mg IV Q6 [facility] Last Admin: 04/21/18 12:07 Dose: 10 mg Admin: 04/21/18 05:29 Dose: 10 mg Admin: 04/21/18 00:21 Dose: 10 mg Admin: 04/20/18 17:40 Dose: 10 mg Admin: 04/20/18 11:36 Dose: 10 mg Admin: 04/20/18 05:13 Dose: 10 mg Admin: 04/19/18 23:40 Dose: 10 mg Admin: 04/19/18 17:20 Dose: 10 mg Admin: 04/19/18 11:33 Dose: 10 mg Admin: 04/19/18 07:44 Dose: Admin: 04/19/18 00:02 Dose: 10 mg Admin: 04/18/18 17:54 Dose: 10 mg Admin: 04/18/18 12:00 Dose: 10 mg Admin: 04/18/18 06:11 Dose: 10 mg Admin: 04/17/18 23:56 Dose: 10 mg Admin: 04/17/18 17:57 Dose: 10 mg Admin: 04/17/18 12:06 Dose: 10 mg Admin: 04/17/18 05:27 Dose: 10 mg Admin: 04/17/18 00:03 Dose: 10 mg Admin: 04/16/18 17:41 Dose: 10 mg Admin: 04/16/18 11:59 Dose: 10 mg Admin: 04/16/18 05:21 Dose: 10 mg Admin: 04/16/18 00:35 Dose: 10 mg Admin: 04/15/18 16:25 Dose: 10 mg Admin: 04/15/18 13:19 Dose: 10 mg Admin: 04/15/18 05:41 Dose: 10 mg Admin: 04/14/18 23:45 Dose: 10 mg Admin: 04/14/18 17:42 Dose: 10 mg Oxycodone HCl (Roxicodone) 10 mg PO Q4HP PRN PRN Reason: PAIN LEVEL 3-6 Last Admin: 04/20/18 21:44 Dose: 10 mg Admin: 04/20/18 11:46 Dose: 10 mg Admin: 04/19/18 21:34 Dose: 10 mg Pantoprazole Sodium (Protonix) 40 mg IV BIDAC [facility] Last Admin: 04/21/18 07:25 Dose: 40 mg Admin: 04/20/18 17:40 Dose: 40 mg Admin: 04/20/18 07:10 Dose: 40 mg Admin: 04/19/18 16:15 Dose: 40 mg Admin: 04/19/18 07:43 Dose: 40 mg Admin: 04/18/18 16:49 Dose: 40 mg Admin: 04/18/18 07:13 Dose: 40 mg Admin: 04/17/18 17:57 Dose: 40 mg Admin: 04/17/18 07:15 Dose: 40 mg Admin: 04/16/18 17:08 Dose: 40 mg Admin: 04/16/18 06:49 Dose: 40 mg Admin: 04/15/18 16:25 Dose: 40 mg Admin: 04/15/18 07:46 Dose: 40 mg Admin: 04/14/18 17:42 Dose: 40 mg Potassium Chloride (Kdur) 40 meq PO BIDCC [facility] Last Admin: 04/21/18 08:10 Dose: 40 meq Admin: 04/20/18 17:40 Dose: 40 meq Admin: 04/20/18 09:32 Dose: 40 meq Admin: 04/19/18 17:20 Dose: 40 meq Admin: 04/19/18 09:15 Dose: 40 meq Admin: 04/18/18 17:54 Dose: 40 meq Sertraline HCl (Zoloft) 25 mg PO QDAY [facility] Last Admin: 04/21/18 08:09 Dose: 25 mg Admin: 04/20/18 09:32 Dose: 25 mg Admin: 04/19/18 09:15 Dose: 25 mg Admin: 04/18/18 07:55 Dose: 25 mg Sodium Chloride (Saline Flush) 10 ml IV Q8 [facility] Last Admin: 04/21/18 05:28 Dose: 10 ml Admin: 04/21/18 00:21 Dose: 10 ml Admin: 04/20/18 14:30 Dose: 10 ml Admin: 04/20/18 05:13 Dose: 10 ml Admin: 04/19/18 21:03 Dose: 10 ml Admin: 04/19/18 14:21 Dose: 10 ml Admin: 04/19/18 07:43 Dose: 10 ml Admin: 04/18/18 20:36 Dose: 10 ml Admin: 04/18/18 15:52 Dose: 10 ml Admin: 04/18/18 06:11 Dose: Not Given Admin: 04/17/18 21:02 Dose: Not Given Admin: 04/17/18 13:38 Dose: Not Given Admin: 04/17/18 05:30 Dose: Not Given Admin: 04/16/18 22:07 Dose: Not Given Admin: 04/16/18 14:33 Dose: Not Given Admin: 04/16/18 05:21 Dose: 10 ml Admin: 04/15/18 20:51 Dose: 10 ml Admin: 04/15/18 13:53 Dose: Not Given Admin: 04/15/18 05:43 Dose: 10 ml Admin: 04/14/18 21:29 Dose: 10 ml Admin: 04/14/18 14:34 Dose: Not Given Throat Lozenges (Cepacol) 1 lozenge PO PRN PRN PRN Reason: Sore Throat Last Admin: 04/17/18 05:36 Dose: 1 lozenge Admin: 04/16/18 19:28 Dose: 1 lozenge Admin: 04/16/18 05:29 Dose: 1 lozenge Admin: 04/15/18 14:04 Dose: 1 lozenge Shift Summary 04/20/18 17:48 Shift Summary by Elsie Rodriguez Patient up with 1 assist and FWW, has been using call light appropriately. VD large amounts per hat in bathroom. IV SL to RFA. Tolerating regular diet. Midline incision with naga and tegaderm. Medicated with roxicodone x1. Initialized on 04/20/18 17:48 - END OF NOTE
--- NOTE | 2018-04-22 11:11 | Surgical Pathology Report ---
HISTOLOGY SPECIMEN MICROSCOPIC DIAGNOSIS COLON, SIGMOID, SEGMENTAL RESECTION: -- TUBULOVILLOUS ADENOMA, EXTENSIVELY INVOLVING MUCOSAL DIVERTICULA, WITH FOCAL HIGH-GRADE DYSPLASIA AND PATCHY MINUTE FOCI OF SUPERFICIALLY INVASIVE MODERATELY DIFFERENTIATED ADENOCARCINOMA. - SIZE: LESION MEASURES 4.5 X 2.5 WITH A THICKNESS OF 3.0 CM. - DEPTH OF INVASION: MINUTE FOCI OF SUPERFICIALLY INVASIVE ADENOCARCINOMA PRESENT INVOLVING MUCOSAL DIVERTICULA WITH EXTENSION INTO PERICOLORECTAL TISSUE. - LYMPH-VASCULAR OR PERINEURAL INVASION: NOT IDENTIFIED. - LYMPH NODES: 18 PARACOLONIC LYMPH NODES NEGATIVE FOR METASTATIC CARCINOMA. - SURGICAL MARGINS: FREE OF MALIGNANCY, CLOSEST MARGIN IS 4.5 CM. - PATHOLOGIC STAGE: pT3 pN0 MX. -- SEVERE DIVERTICULAR DISEASE WITH FOCI OF ACUTE/CHRONIC DIVERTICULITIS. -- SEROSAL ADHESIONS WITH MULTIPLE PORTIONS OF MINERAL MATERIAL, (GROSSLY CONSISTENT WITH GALLSTONE FRAGMENTS), SEE COMMENT. (ACP:adj) COMMENT: The grossly described mass lesion was entirely submitted, and confirms a large tubulovillous adenoma with extensive involvement of colonic mucosal diverticula. Focal high-grade dysplasia is noted along with three foci of superficially invasive tumor. The foci of invasive tumor are present within areas involving mucosal diverticula, with tumor invading into pericolonic soft tissue. No lymph-vascular or perineural invasion is seen. The patient's history of prior cholecystectomy performed in November 2013 is noted ([id number]). There are numerous irregular copper colored portions of mineral material loosely adhesed to the serosa. THE gross appearance is consistent with gallstone fragments. Clinical correlation is suggested. SUMMARY CANCER DATA Procedure: Sigmoidectomy Tumor Site: Sigmoid Tumor Size: 4.0 x 2.5 x 3.0 cm Macroscopic Tumor Perforation: Not identified Histologic Type: Adenocarcinoma Histologic Grade: Moderately differentiated (G2) Microscopic Tumor Extension: Tumor invades through mucosal diverticulum to involve pericolorectal soft tissue Lymph-Vascular Invasion: Not identified Perineural Invasion: Not identified Tumor Deposits (discontinuous extramural extension): Not identified Treatment Effect: No know presurgical therapy Margins: Proximal/Distal Margin: Free of malignancy, 4.5 and 5.5 cm Circumferential (Radial) or Mesenteric Margin: 5.0 cm Distance of invasive carcinoma from closest margin: 4.5 Lymph nodes: Number of Lymph Nodes examined: 18 Number of Lymph Nodes involved: Zero Pathologic Stage: pT3 pN0 MX PROCEDURAL IMPRESSION Malignant neoplasm of left colon. GROSS DESCRIPTION The specimen is received in formalin as sigmoid colon segment and consists of a segmental resection of colon that measures 12.5 cm in length with a diameter of 3.5 cm. Attached adipose tissue is lobular with a yellow color and patchy areas of hyperemia. The mesenteric margin is present 5.0 cm from the serosa, and is inked black. The serosa has a numerous diverticula with multiple portions of copper colored, red material, that range in size from 0.3 to 0.7 cm, and are loosely adherent to the serosal surface. Grossly, these are most consistent with fragmented portions of gallstones (patient had a cholecystectomy 2013; [id number]). Both of the surgical margins are stapled; one staple line measures up to 4 cm and the other measures 3.5 cm. The serosa near one stapled edge has a simmons-black area of discoloration that spans up to 3.5 cm. Opening the colon reveals polypoid mass in the mid region of the colon that is measures 4.0 x 2.5 cm and is elevated above the serosa by up to 1.5 cm. This lesion is present 4.5 cm from the closest stapled margin and 5.5 cm from the other stapled margin. The are numerous mucosal diverticula. Areas of simmons discoloration are present within the submucosal tissue adjacent to the mass. Sectioning the mass shows a firm, díaz-white cut surface. The lesion has a maximum thickness of 3 cm and grossly involves multiple diverticula. A region of firm díaz discoloration underlying the mass within the paracolonic soft tissue is noted. Gross evidence of invasion is not seen. Within the attached adipose tissue there are multiple lymph nodes, up to 1.0 cm in maximum dimension. Also present in the container is a separate stapled portion of mucosa and small amount of associated adipose tissue that measures 4 x 2 x 1 cm. Sections submitted according to the following slide sharpe: A1 - proximal, distal and inked mesenteric margin; A2-A4 - complete cross section of mass, including possible diverticular involvement; A5-A7 - additional sections of mass, including possible areas of infiltration into paracolonic soft tissue; A8 - edge of tumor, including mesenteric lymph node and adjacent diverticulum; A9 - sales representative [employer] courses cross section of mucosa with possible underlying lymph node, with additional possible paracolonic lymph nodes (one inked black and bisected, one inked blue and bisected); A10 - additional possible paracolonic lymph nodes (one inked black and bisected, one inked blue and bisected); A11-A12 - additional possible paracolonic lymph nodes; A13 - sales representative business courses tissue from separate portion of mucosa (donut); A14-A22 - remaining tissue from mass, entirely submitted (04/19/2018). (ACP:adj) Electronically Signed by: Manuel Gerber M.D.
== END 2018-04-21 15:22 | disposition home or self-care (01) | DRG 330 ==
LOC: MEDSUR 06:50
PROVIDERS: ADMIT Family Medicine Adult Medicine; ATTEND Family Medicine Adult Medicine

== ENCOUNTER 2018-05-17 11:35 | Inpatient (IN) ==
[2018-05-17] MEDS ORDERED: 0.9 % SODIUM CHLORIDE 1,000 ML IV ONE (11:46)
[2018-05-17] MEDS ORDERED: 0.9 % SODIUM CHLORIDE 250 ML IV SCH ×2 (12:00→13:15)
--- NOTE | 2018-05-17 12:13 | Emergency Department Note ---
GI Bleed HPI - General Chief complaint: Rectal Bleed Stated complaint: Blood in the Stool Time Seen by Provider: 05/17/18 12:06 Source: patient, family, EMS Mode of arrival: EMS Limitations: no limitations - History of Present Illness HPI Narrative: This patient had a colectomy 1 month ago because of mass in the colon. He says some bright red bleeding per rectum since starting 2 days ago and felt a little bit faint today. His son is a senior drafter and so brought him to the ER. He was supposed to see the surgeon Dr. Robb today but is not cannot make that visit. Does not have any abdominal pain. - Related Data Home Medications Medication Instructions Recorded Confirmed aspirin 81 mg tablet,delayed 81 mg PO QDAY 11/08/15 05/17/18 release [place]-3/Dha/Epa/Fish Oil [Fish Oil 2 cap PO DAILY 07/01/17 05/17/18 1,000 mg Softgel] Super Beet Juice 1 appful PO DAILY 03/16/18 05/17/18 Atenolol [Tenormin] 50 mg PO BID 04/12/18 05/17/18 Ferrous Sulfate 325 mg PO DAILY 04/12/18 05/17/18 Magnesium Hydroxide [Milk of 30 ml PO BID 04/12/18 05/17/18 Magnesia] Memantine [Namenda] 5 mg PO BID 04/13/18 05/17/18 Pantoprazole [Protonix] 40 mg PO HS 04/13/18 05/17/18 Previous Rx's Medication Instructions Recorded simvastatin 10 mg tablet 10 mg PO QPM #90 tab 08/05/17 clopidogrel 75 mg tablet 75 mg PO QDAY #30 tab 02/08/18 sertraline 25 mg tablet 25 mg PO QDAY #30 tab 03/23/18 Allergies Allergy/AdvReac Type Severity Reaction Status Date / Time No Known Drug Allergies Allergy Verified 05/17/18 11:45 Review of Systems All systems ED: reviewed and negative except as stated. 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) Gastroesophageal reflux disease (Chronic) Hyperlipidemia (Chronic) Atherosclerotic heart disease (Chronic) Cerebrovascular disease (Chronic) Primary osteoarthritis of right knee (Acute) Abdominal aortic aneurysm (Chronic) Pneumonia (Chronic) Pancreatitis (Chronic) Neuropathy (Chronic 09/13/14) Lumbago (Chronic) Hypertension, essential (Chronic 09/13/14) CAD (coronary artery disease) (Chronic) Anemia (Acute 11/10/14) Past Surgical History (Last Reviewed 04/29/18 @ 10:11 by Fab Robb MD) S/P CABG x 3 (Chronic) History of right-sided carotid endarterectomy (Chronic) History of left-sided carotid endarterectomy (Chronic) History of hernia repair (Chronic) History of cholecystectomy (Chronic 12/21/13) History of colectomy (Acute) History of colonoscopy (Chronic 03/05/18) History of esophagogastroduodenoscopy (EGD) (Chronic 03/05/18) - Social History smoking status: Former smoker Physical Exam Limitations: no limitations General appearance: alert Head: atraumatic Eye: Present: normal appearance ENT: normal exam Neck: Present: normal inspection Chest: Present: normal inspection Respiratory: Present: normal lung sounds bilaterally Cardiovascular: Present: regular rate, normal rhythm, normal heart sounds Abdominal: Present: soft. Absent: distention, tenderness Neurological: Present: alert Psychiatric: Present: normal affect, normal mood Skin: Present: warm, dry Course Vital Signs Pulse Rate 63 05/17/18 11:39 Respiratory Rate 20 05/17/18 11:39 Blood Pressure 122/65 05/17/18 11:39 Pulse Oximetry (%) 95 05/17/18 11:39 Temperature 97.3 F 05/18/18 06:48 Pulse Rate 62 05/18/18 06:48 Respiratory Rate 14 05/18/18 06:48 Blood Pressure 144/70 05/18/18 06:48 Pulse Oximetry (%) 96 05/18/18 06:48 GI Bleed - MDM Narrative Medical decision making narrative: Dr. Robb came and saw this patient and admitted him to the hospital. - Lab Data Lab results reviewed: Yes I reviewed the patient's lab results. Result diagrams: 05/18/18 04:08 05/18/18 04:08 Lab Results 05/17/18 05/17/18 05/17/18 Range/Units 11:46 12:03 12:03 WBC 6.1 (4.5-11.0) K/mcL RBC 2.62 L (4.50-5.90) M/mcL Hgb 8.0 L (13.5-16.5) g/dL Hct 24.6 L (41.0-55.0) % POC Hct 25.0 L (41.0-55.0) % MCV 93.8 (80.0-100.0) fL MCH 30.6 (26.0-34.0) pg MCHC 32.6 (31.0-36.0) g/dL RDW 20.4 H (11.5-14.5) % Plt Count 186 (140-440) K/mcL MPV 8.1 (7.4-10.4) fL Gran % 82.2 H (38.0-78.0) % Lymph % (Auto) 9.9 L (15.5-49.0) % [place] % (Auto) 6.1 (1.0-12.0) % Eos % (Auto) 1.6 (0.0-7.0) % Baso % (Auto) 0.2 (0.0-2.0) % Gran # 5.0 (1.8-8.0) K/mcL Lymph # (Auto) 0.6 L (1.5-4.8) K/mcL [place] # (Auto) 0.4 (0.1-0.9) K/mcL Eos # (Auto) 0.1 (0.0-0.7) K/mcL Baso # (Auto) 0 (0.0-0.3) K/mcL ESR (0-15) mm/hr PT (11.9-14.5) sec INR (0.9-1.1) APTT (20-37) sec POC Sodium 138 (133-145) mmol/L Sodium 137 (133-145) mmol/L POC Potassium 4.1 (3.3-5.1) mmol/L Potassium 4.3 (3.3-5.1) mmol/L POC Chloride 103 (96-108) mmol/L Chloride 102 (96-108) mmol/L Carbon Dioxide 24 (22-30) mmol/L POC Total CO2 23 (22-30) mmol/L Anion Gap 11.0 (8-16) POC BUN 26 H (8-23) mg/dl BUN 26 H (8-23) mg/dl Creatinine 1.0 (0.7-1.2) mg/dl POC Creatinine 1.0 (0.7-1.2) mg/dl GFR Calculation 68 Glucose 135 H (70-105) mg/dL POC Glucose 131 H (70-105) mg/dL Calcium 8.9 (8.6-10.4) mg/dl POC WB Ioniz Calcium 1.19 (1.16-1.32) mmol/L Total Bilirubin 0.3 (0.0-1.0) mg/dL AST 13 (0-37) U/l ALT 12 (0-40) U/l Alkaline Phosphatase 47 (39-117) U/L Total Protein 5.7 L (5.9-8.4) gm/dL Albumin 3.5 (3.2-5.2) gm/dL Globulin 2.2 (2.2-3.7) gm/dL Albumin/Globulin Ratio 1.6 (1.0-2.3) 05/17/18 05/17/18 Range/Units 12:03 12:03 WBC (4.5-11.0) K/mcL RBC (4.50-5.90) M/mcL Hgb (13.5-16.5) g/dL Hct (41.0-55.0) % POC Hct (41.0-55.0) % MCV (80.0-100.0) fL MCH (26.0-34.0) pg MCHC (31.0-36.0) g/dL RDW (11.5-14.5) % Plt Count (140-440) K/mcL MPV (7.4-10.4) fL Gran % (38.0-78.0) % Lymph % (Auto) (15.5-49.0) % [place] % (Auto) (1.0-12.0) % Eos % (Auto) (0.0-7.0) % Baso % (Auto) (0.0-2.0) % Gran # (1.8-8.0) K/mcL Lymph # (Auto) (1.5-4.8) K/mcL [place] # (Auto) (0.1-0.9) K/mcL Eos # (Auto) (0.0-0.7) K/mcL Baso # (Auto) (0.0-0.3) K/mcL ESR 32 H (0-15) mm/hr PT 14.3 (11.9-14.5) sec INR 1.1 (0.9-1.1) APTT 28 (20-37) sec POC Sodium (133-145) mmol/L Sodium (133-145) mmol/L POC Potassium (3.3-5.1) mmol/L Potassium (3.3-5.1) mmol/L POC Chloride (96-108) mmol/L Chloride (96-108) mmol/L Carbon Dioxide (22-30) mmol/L POC Total CO2 (22-30) mmol/L Anion Gap (8-16) POC BUN (8-23) mg/dl BUN (8-23) mg/dl Creatinine (0.7-1.2) mg/dl POC Creatinine (0.7-1.2) mg/dl GFR Calculation Glucose (70-105) mg/dL POC Glucose (70-105) mg/dL Calcium (8.6-10.4) mg/dl POC WB Ioniz Calcium (1.16-1.32) mmol/L Total Bilirubin (0.0-1.0) mg/dL AST (0-37) U/l ALT (0-40) U/l Alkaline Phosphatase (39-117) U/L Total Protein (5.9-8.4) gm/dL Albumin (3.2-5.2) gm/dL Globulin (2.2-3.7) gm/dL Albumin/Globulin Ratio (1.0-2.3) Disposition Pt seen by [employer] MA[employer]GER/PA only: No Clinical Impression: Lower GI bleed Disposition: Xfer As Inpt ([facility])
[2018-05-17 12:33] LABS: Basophils # (Auto) 0 K/mcL (0.0-0.3); Basophils % (Auto) 0.2 % (0.0-2.0); Eosinophils # (Auto) 0.1 K/mcL (0.0-0.7); Eosinophils % (Auto) 1.6 % (0.0-7.0); Granulocytes % (Auto) 82.2 % (38.0-78.0); Lymphocytes # (Auto) 0.6 K/mcL (1.5-4.8); Lymphocytes % (Auto) 9.9 % (15.5-49.0); Mean Cell Volume 93.8 fL (80.0-100.0); Mean Corpuscular HGB Conc 32.6 g/dL (31.0-36.0); Mean Corpuscular Hemoglobin 30.6 pg (26.0-34.0); Monocytes # (Auto) 0.4 K/mcL (0.1-0.9); Monocytes % (Auto) 6.1 % (1.0-12.0); Platelet Count 186 K/mcL (140-440); RBC 2.62 M/mcL (4.50-5.90); Red Cell Distribution Width 20.4 % (11.5-14.5)
[2018-05-17 12:47] LABS: ALT/SGPT 12 U/l (0-40); Albumin 3.5 gm/dL (3.2-5.2); Albumin/Globulin Ratio 1.6 (1.0-2.3); Alkaline Phosphatase 47 U/L (39-117); Blood Urea Nitrogen 26 mg/dl (8-23)
[2018-05-17] MEDS ORDERED: ONDANSETRON 4 MG/2 ML VIAL IV PRN (13:09)
[2018-05-17] MEDS ORDERED: HYDROmorphone 2 MG/ML VIAL IV PRN (13:09)
--- NOTE | 2018-05-17 13:36 | General Surg History&Physical ---
History of Present Illness Patient information: Note initiated : 05/17/18 at 1:33 pm Service Date, if different from initiated Date: [] Patient: Lele Terrell 87 y/o M admitted on for Blood In Stool. Chief Complaint: [rectal bleeding] HPI: Mr. Terrell is a 87 year old M with history of bright red rectal bleeding that started on Thursday, which was 2 days prior to admission.. The patient states that he was attending a football game when he noted some bloody stains on his clothing.. He checked himself in the bathroom and had a bloody bowel movement. He thought that it was a 1 time occurrence. He did not come to the emergency room. He does admit though that he had at least 4 more episodes of rectal bleeding on yesterday and this morning. He felt weak this morning and had more bleeding. This prompted him to come to the emergency room.It is noted that his hemoglobin is 8 and he is having active per rectum.. Patient is admitted for transfusion and will have lower bowel prep followed by colonoscopy. Review of Systems - Constitutional fatigue, malaise, weight loss - EENT Nose, mouth and throat: abnormal hearing, no throat swelling, no tongue swelling , no vertigo - Cardiovascular no chest pain at rest, no diaphoresis, no irregular heart rhythm, no palpatations, no rapid heart rate, no syncope - Respiratory no cough, no dyspnea on exertion, no wheezing, no stridor, no pain with cough - Gastrointestinal change in bowel habits, no abdominal pain, no bloating, no melena, no nausea, no vomiting - Genitourinary no change in urinary stream, no difficulty urinating, no urinary frequency - Musculoskeletal no arthralgias, no muscle weakness, no myalgias, no stiffness - Integumentary no dry skin, no new lesions, no pruritus, no rash - Neurological abnormal hearing, dizziness, no confusion, no headache(s), no numbness, no syncope, no vertigo, no weakness - Psychiatric no anxiety, no confusion, no depression - Endocrine fatigue, no palpitations - Hematologic/Lymphatic no easy bleeding, no easy bruising, no lymphadenopathy - Allergic/Immunologic no tongue swelling, no throat swelling, no uticaria, no wheezing, no lip swelling Past History Past medical history: Depression.. Cerebrovascular insufficiency.. GERD. Atherosclerotic heart disease. Abdominal aortic aneurysm. Hypertension Past surgical history: Coronary artery bypass graft 3 in 2000. Right carotid endarterectomy 2009 Left carotid endarterectomy 2000. Hernia repair. Cholecystectomy Past family history: Hypertension.. Brain cancer.. Leukemia. Diabetes mellitus. Alzheimer's disease Past social history: Former smoker. Denies alcohol use. Denies drug use Medications and Allergies Home Medications Medication Instructions Recorded Confirmed Type aspirin 81 mg tablet,delayed 81 mg PO QDAY 11/08/15 05/17/18 History release Melissa-3/Dha/Epa/Fish Oil [Fish Oil 2 cap PO DAILY 07/01/17 05/17/18 History 1,000 mg Softgel] simvastatin 10 mg tablet 10 mg PO QPM #90 tab 08/05/17 05/17/18 Rx clopidogrel 75 mg tablet 75 mg PO QDAY #30 tab 02/08/18 05/17/18 Rx Super Beet Juice 1 tab PO DAILY 03/16/18 05/17/18 History sertraline 25 mg tablet 25 mg PO QDAY #30 tab 03/23/18 05/17/18 Rx Atenolol [Tenormin] 50 mg PO BID 04/12/18 05/17/18 History Ferrous Sulfate 325 mg PO DAILY 04/12/18 05/17/18 History Magnesium Hydroxide [Milk of 30 ml PO BIDP PRN 04/12/18 05/17/18 History Magnesia] Memantine [Namenda] 5 mg PO BID 04/13/18 05/17/18 History Pantoprazole [Protonix] 40 mg PO QAMAC 04/13/18 05/17/18 History Allergies Allergy/AdvReac Type Severity Reaction Status Date / Time No Known Drug Allergies Allergy Verified 05/17/18 11:45 Exam Pulse Resp BP Pulse Ox 56 L 18 116/61 98 05/17/18 12:31 05/17/18 13:01 05/17/18 13:01 05/17/18 12:31 - General physical appearance well developed, well nourished, no distress - Eyes PERRL, normal ocular movement. negative: icteric - ENT normal pinna, normal nares, normal mucosa, no hearing loss, no congestion - Head Head exam IM: Present: atraumatic, normal inspection, normocephalic - Neck no masses, no bruits, trachea midline, no lymphadectomy, no venous distension - Cardiovascular Cardiovascular exam IM: Present: normal rate and rhythm, RRR, +S1, +S2. Absent : JVD, tachycardia - Respiratory normal expansion, normal respiratory effort, clear to auscultation - Abdomen Abdomen: Present: soft, non tender, bowel sounds, surgical scars (healed abdominal incision; good active bowel sounds; no tenderness noted) Hernia: Present: none - Genitourinary Present: normal penis with no external lesions - Rectum Rectum: Present: normal sphincter tone, no hemorrhoids, no tenderness, no masses , other ( blood per rectum without rectal mass) - Integumentary Present: no rash, no growths, no abnormal pigmentation - Neurologic Present: normal coordination, normal sensation - Musculoskeletal Present: normal gait, normal posture - Psychiatric Present: oriented to time, oriented to person, oriented to place, speech is normal, memory intact Assessment and Plan (1) Rectal bleeding The most likely source of bleeding is gone to be the anastomotic staple line. The next potential source would be residual diverticulosis. Patient will have transfusion of 2 units of packed red cells. He will have soapsuds enemas tonight and in the morning with plans for colonoscopy tomorrow.. Status: Acute (2) Anemia We'll transfuse as needed Status: Acute Qualifiers: Anemia type: iron deficiency Iron deficiency anemia type: chronic blood loss Qualified Code(s): D50.0 - Iron deficiency anemia secondary to blood loss (chronic) (3) Abdominal aortic aneurysm Status: Chronic Qualifiers: Presence of rupture: without rupture Qualified Code(s): I71.4 - Abdominal aortic aneurysm, without rupture (4) CAD (coronary artery disease) Status: Chronic Qualifiers: Coronary Disease-Associated Artery/Lesion type: unspecified vessel or lesion type [place] vs. transplanted heart: [place] heart Associated angina: without angina Qualified Code(s): I25.10 - Atherosclerotic heart disease of [place] coronary artery without angina pectoris (5) Cerebrovascular disease Status: Chronic (6) Hypertension, essential Status: Chronic
[2018-05-17] MEDS: 0.9 % SODIUM CHLORIDE 10 ML SYRINGE IV SCH ×2 (16:07→21:09)
[2018-05-17] MEDS: ATENOLOL 50 MG TABLET PO SCH ×2 (17:17→20:22)
[2018-05-17] MEDS: 0.9 % SODIUM CHLORIDE 1,000 ML IV SCH (21:09)
[2018-05-18] MEDS: 0.9 % SODIUM CHLORIDE 1,000 ML IV SCH ×3 (02:01→15:06)
[2018-05-18] MEDS: 0.9 % SODIUM CHLORIDE 10 ML SYRINGE IV SCH ×3 (04:35→20:50)
[2018-05-18 05:53] LABS: Basophils # (Auto) 0 K/mcL (0.0-0.3); Basophils % (Auto) 0.1 % (0.0-2.0); Eosinophils # (Auto) 0.1 K/mcL (0.0-0.7); Eosinophils % (Auto) 1.1 % (0.0-7.0); Granulocytes % (Auto) 80.8 % (38.0-78.0); Lymphocytes # (Auto) 0.9 K/mcL (1.5-4.8); Lymphocytes % (Auto) 10.1 % (15.5-49.0); Mean Cell Volume 91.6 fL (80.0-100.0); Mean Corpuscular HGB Conc 33.6 g/dL (31.0-36.0); Mean Corpuscular Hemoglobin 30.8 pg (26.0-34.0); Monocytes # (Auto) 0.7 K/mcL (0.1-0.9); Monocytes % (Auto) 7.9 % (1.0-12.0); Platelet Count 151 K/mcL (140-440); RBC 3.06 M/mcL (4.50-5.90); Red Cell Distribution Width 19.7 % (11.5-14.5)
[2018-05-18 06:29] LABS: ALT/SGPT 10 U/l (0-40); Albumin 3.3 gm/dL (3.2-5.2); Albumin/Globulin Ratio 1.5 (1.0-2.3); Alkaline Phosphatase 43 U/L (39-117); Bilirubin,Direct < 0.2 mg/dL (0.0-0.3); Blood Urea Nitrogen 23 mg/dl (8-23); Gamma Glutamyl Transpeptidase 13 U/L (8-61); Uric Acid 6.3 mg/dL (2.5-8.0)
[2018-05-18] MEDS ORDERED: SERTRALINE 50 MG TABLET PO SCH (09:00)
[2018-05-18] MEDS: ATENOLOL 50 MG TABLET PO SCH ×2 (09:59→20:48)
[2018-05-18] MEDS ORDERED: ePHEDrine 50 MG/ML AMPUL IV ONE (16:10)
[2018-05-18] MEDS ORDERED: PHENYLEPHRINE 10 MG/ML VIAL IV ONE (16:10)
[2018-05-18] MEDS ORDERED: PROPOFOL 200 MG/20 ML VIAL IV ONE (16:10)
[2018-05-18] MEDS ORDERED: LIDOCAINE HCL/PF 100 MG/5 ML SYRINGE IV ONE (16:10)
--- NOTE | 2018-05-18 17:32 | Brief Operative Note ---
Date of procedure: 05/18/18 Pre-op diagnosis: RECTAL BLEEDING Post-op diagnosis: other (DIVERTICULOSIS WITH OLD BLOOD) Procedure: SIGMOIDOSCOPY WITH COLON IRRIGATION Grafts/Implants: No Anesthesia: MAC Findings: EXTENSIVE DIVERTICULAE WITH OLD BLOOD IN ALL DIVERTICULAE; ANASTOMOSIS INTACT WITHOUT ACTIVE BLEEDING; EDEMA OF ANASTOMOSIS Complications: none Surgeon: Fab Robb Specimens Removed/Pathology: none sent Condition: stable Disposition: floor
[2018-05-18] MEDS ORDERED: HYDROmorphone 2 MG/ML VIAL IV PRN (17:35)
[2018-05-18] MEDS ORDERED: ONDANSETRON 4 MG/2 ML VIAL IV PRN (17:35)
[2018-05-18] MEDS: MEMANTINE 10 MG TABLET PO SCH (20:48)
[2018-05-19 05:10] LABS: Basophils # (Auto) 0 K/mcL (0.0-0.3); Basophils % (Auto) 0.2 % (0.0-2.0); Eosinophils # (Auto) 0.4 K/mcL (0.0-0.7); Eosinophils % (Auto) 5.6 % (0.0-7.0); Granulocytes % (Auto) 71.2 % (38.0-78.0); Lymphocytes # (Auto) 0.9 K/mcL (1.5-4.8); Lymphocytes % (Auto) 13.5 % (15.5-49.0); Mean Corpuscular HGB Conc 33.6 g/dL (31.0-36.0); Mean Corpuscular Hemoglobin 30.9 pg (26.0-34.0); Monocytes # (Auto) 0.6 K/mcL (0.1-0.9); Monocytes % (Auto) 9.5 % (1.0-12.0); Platelet Count 161 K/mcL (140-440); RBC 3.05 M/mcL (4.50-5.90); Red Cell Distribution Width 19.9 % (11.5-14.5)
[2018-05-19 05:39] LABS: ALT/SGPT 10 U/l (0-40); Albumin 3.4 gm/dL (3.2-5.2); Albumin/Globulin Ratio 1.5 (1.0-2.3); Alkaline Phosphatase 45 U/L (39-117); Bilirubin,Direct < 0.2 mg/dL (0.0-0.3); Blood Urea Nitrogen 14 mg/dl (8-23); Gamma Glutamyl Transpeptidase 12 U/L (8-61); Uric Acid 6.5 mg/dL (2.5-8.0)
[2018-05-19] MEDS: MEMANTINE 10 MG TABLET PO SCH (08:29)
[2018-05-19] MEDS: ATENOLOL 50 MG TABLET PO SCH (08:29)
[2018-05-19] MEDS: 0.9 % SODIUM CHLORIDE 10 ML SYRINGE IV SCH ×2 (08:30→15:25)
[2018-05-19] MEDS ORDERED: SERTRALINE 50 MG TABLET PO SCH (09:00)
--- NOTE | 2018-05-19 13:07 | Discharge Summary ---
Providers - Providers Patient information: Note initiated : 05/19/18 at 1:03 pm Service Date, if different from initiated Date: [] Patient: Lele Terrell 87 y/o M admitted on 05/17/18 for Blood In Stool/ Lower GI Bleed. Chief Complaint: [] Date of admission: 05/17/18 Discharge date: 05/19/18 Attending physician: Fab Robb Hospitalization Hospital course: 87-year-old male was admitted with rectal bleeding. The patient had onset of spontaneous rectal bleeding 2 days prior to admission. He did not immediately come to the emergency room until he had 4 more episodes of bleeding over the next 2 days. He started to feel weak and was seen in the emergency room where was noted that his hemoglobin was 8. Patient was admitted with plans for transfusion,, followed by colonoscopy. 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 He also has had multiple episodes of bleeding in the past, which resolved spontaneously. He has extensive diverticula above and below his anastomosis. Since he is over 30 days out, it is unlikely that the bleeding is coming from the anastomosis. The most likely source is going to be diverticulosis.. The patient was admitted and transfused 2 units of blood. He only had 1 bowel movement spontaneously after arrival. He did have some old blood with the enemas that were given to clear his distal colon. Post transfusion hemoglobin was 9.6. The patient underwent sigmoidoscopy yesterday and was noted to have blood up to 40 cm. Proximal to 40 cm with the anastomosis. Immediately distal to the anastomosis. There was no fresh blood. The anastomosis was swollen but was otherwise unremarkable. I did not make an attempt to get proximal to the anastomosis since the stool encountered at the anastomosis was not bloody. The diverticuli immediately adjacent to the anastomosis did not have blood either. He has remained stable overnight and there has not been any change in his hemoglobin. He had a small bowel movement with minimal blood noted.. He is stable and will be discharged home. He is advised that there is the possibility that he may replaced but time is not predictable.. Discharge diagnosis: rectal bleeding due to diverticulosis Secondary discharge diagnosis: Blood loss anemia. History of early carcinoma of colon,, status post resection. Cerebrovascular insufficiency. Atherosclerotic heart disease. Hypertension. Abdominal aortic aneurysm Reason for admission: rectal bleeding and anemia Procedures: Flexible sigmoidoscopy with colon irrigation Pertinent studies/significant findings: None Complications: None Exam Temp Pulse Resp BP Pulse Ox 97.8 F 68 16 139/64 97 05/19/18 12:00 05/19/18 12:00 05/19/18 12:05/19/18 12:05/19/18 12:00 - General physical appearance well developed, well nourished, no distress - Eyes PERRL, normal ocular movement - ENT normal pinna, normal nares, normal mucosa, no hearing loss, no congestion - Head Head exam IM: Present: atraumatic, normocephalic - Neck no masses, no bruits, trachea midline, no lymphadectomy, no venous distension - Cardiovascular Cardiovascular exam IM: Present: normal rate and rhythm - Respiratory normal expansion, normal respiratory effort, clear to percussion, clear to auscultation - Abdomen Abdomen: Present: soft, non tender, bowel sounds Hernia: Present: none - Genitourinary Present: normal penis with no external lesions - Rectum Rectum: Present: no hemorrhoids, no tenderness, no masses, no bleeding - Integumentary Present: no rash, no growths, no abnormal pigmentation - Neurologic Present: normal coordination, normal sensation - Musculoskeletal Present: normal gait, normal posture - Psychiatric Present: oriented to time, oriented to person, oriented to place, speech is normal, memory intact Discharge Plan - Patient/Caregiver Discharge Instructions Activity: increase activity as tolerated Diet: Regular Diet Additional Instructions: Hold the Plavix for 1 week, then restart. Follow-up in the office in 2 weeks - Follow up Plan Follow up with: Timothy Kitchen PA-C [Primary Care Provider] - 05/26/18 1:30 pm (Check in at 1 :30) Fab Robb MD [Physician] - 06/03/18 2:15 pm Disposition: Home, Self-Care Prognosis: Good Rehab Potential: Good I certify that the patient requires SNF services.: No Overall status at discharge: patient is back to baseline Pending Studies Resuscitation Status Full Code Diet Regular Diet Start ThuMay 19 0731 Atenolol (Tenormin) 50 mg PO BID [facility] Last Admin: 05/19/18 08:29 Dose: 50 mg Admin: 05/18/18 20:48 Dose: 50 mg Memantine (Namenda) 5 mg PO BID [facility] Last Admin: 05/19/18 08:29 Dose: 5 mg Admin: 05/18/18 20:48 Dose: 5 mg Sertraline HCl (Zoloft) 25 mg PO DAILY [facility] Last Admin: 05/19/18 08:30 Dose: 25 mg Sodium Chloride (Saline Flush) 10 ml IV Q8 [facility] Last Admin: 05/19/18 08:30 Dose: 10 ml Admin: 05/18/18 20:50 Dose: 10 ml Shift Summary 05/19/18 05:34 Shift Summary by Geneva Babcock Slept all night. Was up w/SBA before bed; has loose BM, very little blood noted. Has not had anything for pain. Unsure of d/c plan, but he is feeling better. Initialized on 05/19/18 05:34 - END OF NOTE
--- NOTE | 2018-06-02 11:02 | Operative Note ---
DATE OF OPERATION: 05/18/2018 PREOPERATIVE DIAGNOSIS: Rectal bleeding. POSTOPERATIVE DIAGNOSIS: Diverticulosis with old blood. No active bleeding. PROCEDURE: Sigmoidoscopy with colon irrigation. SURGEON: Fab Robb MD FINDINGS: Extensive diverticula with old blood and old diverticular openings. Anastomosis intact with edema, but no evidence of bleeding. DESCRIPTION OF PROCEDURE: Under general anesthesia, the patient was turned to the left lateral decubitus position. Digital examination of the anorectum revealed old blood. Colonoscope was introduced. There was very dark blood noted that was coating the rectum and distal sigmoid. The patient had extensive diverticula above 18 cm extending up to the anastomosis which was at about 40 cm. Copious irrigation with saline was carried out to try to irrigate the blood from the diverticula. There were some that had old clot that could not be irrigated. There was no active bleeding coming from it diverticula. At about 30 cm the bowel wall appeared to be normal with normal-appearing thin stool and no bleeding. At 40 cm, the anastomosis was encountered. Irrigation was carried out and the anastomosis did not show any evidence of active bleeding. I did not maneuver past the anastomosis because it was a fresh anastomosis. There was no blood exiting from the area of the anastomosis. Further irrigation was carried out as the scope was removed. No active bleeding was noted. The patient tolerated the procedure well. He was awakened and transferred to the postanesthetic care unit in satisfactory condition. LCS:sandeep Job ID: [id number] Doc ID: [id number] Fab Robb M.D.
== END 2018-05-19 14:02 | disposition home or self-care (01) | DRG 379 ==
LOC: ED 11:35 → MEDSUR 14:29
PROVIDERS: ADMIT Family Medicine Adult Medicine; ATTEND Family Medicine Adult Medicine

== ENCOUNTER 2018-09-18 23:01 | Inpatient (IN) ==
[2018-09-19] MEDS ORDERED: PANTOPRAZOLE 40 MG VIAL IV ONE ×2 (00:20→02:42)
[2018-09-19] MEDS ORDERED: LACTATED RINGERS 1,000 ML IV ONE (00:20)
--- NOTE | 2018-09-19 00:28 | Emergency Department Note ---
General Adult HPI - General Chief complaint: Bleeding Other Stated complaint: rectal bleeding Time Seen by Provider: 09/19/18 00:02 Source: patient Mode of arrival: ambulatory Limitations: no limitations - History of Present Illness HPI Narrative: History is obtained from patient who does have a history of memory issues, status post stroke in the past and currently on Plavix as well as aspirin. His memory is actually quite good, he can tell me what he did today. He was actually up in [place] and when sought to [place]. Noticed a little b it of blood in his stool this morning, then at the basketball game noticed fecal soiling with blood. Had fecal soiling 2, not associated with abdominal pain, history of GI bleed one month after his colon resection last year in the summer. Resolved spontaneously after bowel irrigation. Did receive 2 units of blood at that time. Denies chest pain, denies shortness of breath, status post CABG, h istory of coronary disease, stable on current medication regimen. No fevers or chills, no abdominal pain, no history of diarrhea. No vomiting. - Related Data Home Medications Medication Instructions Recorded Confirmed aspirin 81 mg tablet,delayed 81 mg PO QDAY 11/08/15 08/20/18 release [place]-3/Dha/Epa/Fish Oil [Fish Oil 2 cap PO DAILY 07/01/17 08/20/18 1,000 mg Softgel] Super Beet Juice 1 appful PO DAILY 03/16/18 08/20/18 Ferrous Sulfate 325 mg PO DAILY 04/12/18 08/20/18 Magnesium Hydroxide [Milk of 30 ml PO BID 04/12/18 08/20/18 Magnesia] Memantine [Namenda] 5 mg PO BID 04/13/18 08/20/18 Previous Rx's Medication Instructions Recorded clopidogrel 75 mg tablet 75 mg PO QDAY #90 tab 06/03/18 sertraline 25 mg tablet 25 mg PO QDAY #30 tab 07/12/18 gabapentin 100 mg capsule 300 mg PO TID 90 Days #810 cap 08/16/18 pantoprazole 40 mg tablet,delayed 40 mg PO QDAY #90 tab 08/20/18 release simvastatin 10 mg tablet 10 mg PO QPM #90 tab 09/01/18 atenolol 50 mg tablet 50 mg PO BID #180 tab 09/13/18 Allergies Allergy/AdvReac Type Severity Reaction Status Date / Time No Known Drug Allergies Allergy Verified 08/20/18 08:03 Review of Systems All systems ED: reviewed and negative except as stated. Cardiovascular: Denies: chest pain Respiratory: Denies: shortness of breath, cough Gastrointestinal: Denies: abdominal pain, nausea, vomiting Neurological: Reports: other (denies syncope). Denies: weakness, dizziness Past Medical History - Past Medical History Source: old records reviewed, nursing notes reviewed Medical history: Reports: CVA, hyperlipidemia, hypertension, myocardial infarction Surgical history ED: Reports: cancer surgery, cholecystectomy, colectomy, coronary bypass (CABG) Family history: Reports: no significant family history - Social History smoking status: Former smoker Alcohol use: Reports: None Physical Exam Limitations: no limitations General appearance: alert Head: atraumatic, normocephalic Eye: Present: normal appearance, PERRL, EOMI, visual mack intact. Absent: conjunctival injection ENT: normal exam, normal oropharynx Neck: Present: normal inspection, full ROM Chest: Present: normal inspection, symmetric chest wall rise Respiratory: Present: normal lung sounds bilaterally Cardiovascular: Present: regular rate, normal heart sounds Abdominal: Present: soft. Absent: distention, tenderness Rectal: Present: decreased rectal tone, heme (+) stool, bloody stool, other (Maroon-colored stool.) : Present: normal inspection Extremities: Present: normal inspection, full ROM Back: Present: normal inspection. Absent: CVA tenderness (R), CVA tenderness (L) Neurological: Present: alert, oriented X3. Absent: motor sensory deficit Psychiatric: Present: normal affect Skin: Present: warm, dry, intact. Absent: rash, pallor Course - Reevaluation(s) Reevaluation #1: We did set him up and he was orthostatic . This was before we started IV fluids up. He did not have any further bloody bowel movements in the ED however his hemoglobin was 10.4, down from 12.1 less than 4 weeks ago. Patient started on Protonix, IV fluids. Discussed with Dr. Gray as well as our hospitalist. At this point we will need to admit him for presumed lower GI bleed. BUN ho wever slightly elevated and GI bleeding source not determined at this point. Dr. Gray's orders over the phone acknowledged. Vital Signs Temperature 97.3 F 09/18/18 23:02 Pulse Rate 75 01/19/19 23:02 Respiratory Rate 18 09/18/18 23:02 Blood Pressure 140/80 09/18/18 23:02 Pulse Oximetry (%) 95 09/18/18 23:02 Temperature 97.3 F 09/18/18 23:02 Pulse Rate 75 09/18/18 23:02 Respiratory Rate 18 09/18/18 23:02 Blood Pressure 140/80 09/18/18 23:02 Pulse Oximetry (%) 95 09/18/18 23:02 Medical Decision Making - MDM Narrative Medical decision making narrative: Impressions GI bleed. - Lab Data Result diagrams: 09/19/18 00:30 09/19/18 00:30 Lab Results 09/19/18 09/19/18 09/19/18 Range/Units 00:30 00:30 00:35 WBC 6.2 (4.5-11.0) K/mcL RBC 3.23 L (4.50-5.90) M/mcL Hgb 10.4 L (13.5-16.5) g/dL Hct 31.8 L (41.0-55.0) % MCV 98.7 (80.0-100.0) fL MCH 32.1 (26.0-34.0) pg MCHC 32.5 (31.0-36.0) g/dL RDW 14.6 H (11.5-14.5) % Plt Count 188 (140-440) K/mcL MPV 8.6 (7.4-10.4) fL Gran % 75.5 (38.0-78.0) % Lymph % (Auto) 11.7 L (15.5-49.0) % [place] % (Auto) 10.5 (1.0-12.0) % Eos % (Auto) 2.0 (0.0-7.0) % Baso % (Auto) 0.3 (0.0-2.0) % Gran # 4.7 (1.8-8.0) K/mcL Lymph # (Auto) 0.7 L (1.5-4.8) K/mcL [place] # (Auto) 0.7 (0.1-0.9) K/mcL Eos # (Auto) 0.1 (0.0-0.7) K/mcL Baso # (Auto) 0 (0.0-0.3) K/mcL POC PT 13.5 (11.9-14.5) sec POC INR 1.1 (0.9-1.2) Sodium 136 (133-145) mmol/L Potassium 5.2 H (3.3-5.1) mmol/L Chloride 100 (96-108) mmol/L Carbon Dioxide 27 (22-30) mmol/L Anion Gap 9.0 (8-16) BUN 33 H (8-23) mg/dl Creatinine 1.2 (0.7-1.2) mg/dl GFR Calculation 54 Glucose 89 (70-105) mg/dL Calcium 9.2 (8.6-10.4) mg/dl Total Bilirubin 0.3 (0.0-1.0) mg/dL AST 23 (0-37) U/l ALT 28 (0-40) U/l Alkaline Phosphatase 42 (39-117) U/L Total Protein 6.3 (5.9-8.4) gm/dL Albumin 3.7 (3.2-5.2) gm/dL Globulin 2.6 (2.2-3.7) gm/dL Albumin/Globulin Ratio 1.4 (1.0-2.3) Disposition Pt seen by SOCIAL MEDIA INTERN/PA only: No Clinical Impression: Lower GI bleed Disposition: Xfer As Inpt ([facility]) Condition: Fair Referrals: Timothy Kitchen PA-C [Primary Care Provider] -
[2018-09-19] MEDS ORDERED: 0.9 % SODIUM CHLORIDE 250 ML IV SCH ×2 (00:30→10:00)
[2018-09-19 01:31] LABS: Basophils # (Auto) 0 K/mcL (0.0-0.3); Basophils % (Auto) 0.3 % (0.0-2.0); Eosinophils # (Auto) 0.1 K/mcL (0.0-0.7); Granulocytes % (Auto) 75.5 % (38.0-78.0); Lymphocytes # (Auto) 0.7 K/mcL (1.5-4.8); Lymphocytes % (Auto) 11.7 % (15.5-49.0); Mean Cell Volume 98.7 fL (80.0-100.0); Mean Corpuscular HGB Conc 32.5 g/dL (31.0-36.0); Monocytes # (Auto) 0.7 K/mcL (0.1-0.9); Monocytes % (Auto) 10.5 % (1.0-12.0); Platelet Count 188 K/mcL (140-440); RBC 3.23 M/mcL (4.50-5.90); Red Cell Distribution Width 14.6 % (11.5-14.5)
[2018-09-19 01:40] LABS: ALT/SGPT 28 U/l (0-40); Albumin 3.7 gm/dL (3.2-5.2); Albumin/Globulin Ratio 1.4 (1.0-2.3); Alkaline Phosphatase 42 U/L (39-117); Blood Urea Nitrogen 33 mg/dl (8-23)
[2018-09-19] MEDS ORDERED: MAGNESIUM CITRATE 300 ML ORAL.SOL PO ONE ×2 (01:59→09:40)
[2018-09-19] MEDS ORDERED: ONDANSETRON 4 MG/2 ML VIAL IV PRN ×3 (02:00→07:22)
[2018-09-19] MEDS ORDERED: 0.9 % SODIUM CHLORIDE 1,000 ML IV SCH ×3 (02:00→07:30)
[2018-09-19] MEDS ORDERED: PANTOPRAZOLE 80 MG in 0.9 % SODIUM CHLORIDE 100 ML IV SCH ×3 (02:15→13:00)
[2018-09-19] MEDS ORDERED: POTASSIUM CHLORIDE 20 MEQ TABLET PO PRN ×2 (07:22)
[2018-09-19] MEDS ORDERED: IPRATROPIUM/ALBUTEROL 3 ML AMPUL.NEB NEB PRN (07:22)
[2018-09-19] MEDS ORDERED: PROCHLORPERAZINE 10 MG/2 ML VIAL IV PRN (07:22)
[2018-09-19] MEDS ORDERED: MAGNESIUM SULFATE 2 GM/50 ML BAG IV PRN (07:22)
[2018-09-19] MEDS ORDERED: POTASSIUM CHLORIDE 40 MEQ in DEXTROSE 5% IN WATER 500 ML IV PRN (07:22)
--- NOTE | 2018-09-19 07:25 | Internal Med History&Physical ---
Medical - H&P: [facility] Patient information: Note initiated : 09/19/18 at 7:21 am Service Date, if different from initiated Date: [] Patient: Lele Terrell 88 y/o M admitted on 09/19/18 for rectal bleeding. Chief Complaint: [] History of present illness: Mr. Terrell is a 88 year old M To the ED with rectal bleeding. He states that the bleeding started yesterday while he was at a basketball game and noted blood on the toilet paper first and then had subsequent small bowel movements throughout the rest of the day where it started to become bloody in the bowl and in his pants. He has had dizziness lightheadedness. But has no chest pain shortness of breath. 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 He is on both aspirin and Plavix does not know why he is on both of them. He says he has been on aspirin for a long time and the Plavix was started may be several years ago. He was orthostatic in the ER, found to have gross rectal bleeding. Vital signs are stable although blood pressure dropped when they did orthostatics. Case is discussed with Dr. Villarreal plan for EGD in the morning. Hemoglobin 10 down from 12.5 month prior. Protonix drip started. Review of Systems: Pertinent positives as above. Denies headache/fever/chills/hubert sea/vomiting/chest or abdominal pain/cough/dyspnea. 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) Gastroesophageal reflux disease (Chronic) Hyperlipidemia (Chronic) Atherosclerotic heart disease (Chronic) Cerebrovascular disease (Chronic) Primary osteoarthritis of right knee (Acute) Abdominal aortic aneurysm (Chronic) Pneumonia (Chronic) Pancreatitis (Chronic) Neuropathy (Chronic 09/13/14) Lumbago (Chronic) Hypertension, essential (Chronic 09/13/14) CAD (coronary artery disease) (Chronic) Anemia (Acute 11/10/14) History of sigmoidoscopy (Acute) 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 Past Surgical History (Last Reviewed 04/29/18 @ 10:11 by Fab Robb MD) S/P CABG x 3 (Chronic) History of right-sided carotid endarterectomy (Chronic) History of left-sided carotid endarterectomy (Chronic) History of hernia repair (Chronic) History of cholecystectomy (Chronic 12/21/13) History of colectomy (Acute) History of colonoscopy (Chronic 03/05/18) History of esophagogastroduodenoscopy (EGD) (Chronic 03/05/18) Family history: Mother had high blood pressure father is healthy Social History (Last Updated 08/20/18 @ 08:37 by Timothy Kitchen PA-C) Quit smoking 54 years ago, no alcohol use, lives at home with his , does not use a cane or walker to ambulate Medical - H&P: Meds Home Medications Medication Instructions Recorded Confirmed Type aspirin 81 mg tablet,delayed 81 mg PO QDAY 11/08/15 08/20/18 History release [place]-3/Dha/Epa/Fish Oil [Fish Oil 2 cap PO DAILY 07/01/17 08/20/18 History 1,000 mg Softgel] Super Beet Juice 1 appful PO DAILY 03/16/18 08/20/18 History Ferrous Sulfate 325 mg PO DAILY 04/12/18 08/20/18 History Magnesium Hydroxide [Milk of 30 ml PO BID 04/12/18 08/20/18 History Magnesia] Memantine [Namenda] 5 mg PO BID 04/13/18 08/20/18 History clopidogrel 75 mg tablet 75 mg PO QDAY #90 tab 06/03/18 08/20/18 Rx sertraline 25 mg tablet 25 mg PO QDAY #30 tab 07/12/18 08/20/18 Rx gabapentin 100 mg capsule 300 mg PO TID 90 Days #810 cap 08/16/18 08/20/18 Rx pantoprazole 40 mg tablet,delayed 40 mg PO QDAY #90 tab 08/20/18 08/20/18 Rx release simvastatin 10 mg tablet 10 mg PO QPM #90 tab 09/01/18 Rx atenolol 50 mg tablet 50 mg PO BID #180 tab 09/13/18 Rx Allergies Allergy/AdvReac Type Severity Reaction Status Date / Time No Known Drug Allergies Allergy Verified 08/20/18 08:03 Medical - H&P: Exam - Constitutional Vitals: Temp Pulse Resp BP Pulse Ox 97.4 F 59 L 18 107/56 92 09/19/18 03:01 09/19/18 04:31 09/19/18 02:38 09/19/18 04:31 09/19/18 04:31 Exam: General: Alert, Awake, No acute Distress Eyes/N/T: EOMI, PEERL, DMM Head/Neck: neck supple, normocephalic atraumatic CV: RRR, No murmurs, normal s1/s2 Pulm: Clear b/l, no wheezing/rhonchi/rales Abd: soft, nontender, +BS x4 Ext: no clubbing/cyanosis, 2+ bilateral lower extremity edema, chronic Neuro: Alert, no focal deficits, moves all extremities, CN 2-12 grossly intact, symmetrical strength b/l upper/lower, Skin: warm/dry Medical - H&P: Reslt - Labs CBC & Chem 7: 09/19/18 05:39 09/19/18 00:30 Labs: Short CBC 09/19/18 09/19/18 Range/Units 00:30 05:39 WBC 6.2 (4.5-11.0) K/mcL Hgb 10.4 L 9.1 L (13.5-16.5) g/dL Hct 31.8 L 28.2 L (41.0-55.0) % Plt Count 188 (140-440) K/mcL BMP 09/19/18 00:30 Sodium 136 Potassium 5.2 H Chloride 100 Carbon Dioxide 27 BUN 33 H Creatinine 1.2 Glucose 89 Calcium 9.2 Liver Function 09/19/18 Range/Units 00:30 Total Bilirubin 0.3 (0.0-1.0) mg/dL AST 23 (0-37) U/l ALT 28 (0-40) U/l Alkaline Phosphatase 42 (39-117) U/L Albumin 3.7 (3.2-5.2) gm/dL Medical - H&P: A/P - Narrative A/P Narrative: A: *GI bleed: * *CAD w/CABG: *h/o diastolic(II) CHF: *CVA x3: *h/o stage I sigmoid adenocarcinoma: 2/2 resection 05/2018 *Dementia/Depression: *Neuropathy: P: -NPO, IVF's -ppi gtt -serial H&H -GI consulted, pending endoscopy -monitor fluid status -hold home plavix/asa, restart single agent(plavix) when ok per GI, clarify DAPT (possibly started on plavix after CVA already on ASA per pt) - -ppx: SCD/ppi Medical - H&P: Qual - VTE Deep Vein Thrombosis/Pulmonary Embolism Present on Admission: No
[2018-09-19] MEDS ORDERED: PROPOFOL 200 MG/20 ML VIAL IV SCH ×2 (08:30→18:30)
[2018-09-19] MEDS ORDERED: MIDAZOLAM 2 MG/2 ML VIAL IV SCH ×2 (08:30→18:30)
[2018-09-19] MEDS ORDERED: MIDAZOLAM 2 MG/2 ML VIAL ONE ×2 (08:35→18:31)
[2018-09-19] MEDS ORDERED: PROPOFOL 20 ML IV ONE ×3 (08:35→18:31)
--- NOTE | 2018-09-19 09:52 | XRay Report ---
CLINICAL INFORMATION: Hypoxia COMPARISON: 04/21/2018 FINDINGS: Mild cardiomegaly is unchanged. Mediastinum and pulmonary vessels are normal. The lungs are clear. No effusions. IMPRESSION: No acute disease. Please consider pulmonary embolism in patient with hypoxia and a normal chest x-ray Interpreted and Authenticated by: Jose Juárez 09/19/18
[2018-09-19] MEDS: POLYETHYLENE GLYCOL 3350 17 GM PACKET PO PRN ×6 (11:03→15:57)
[2018-09-19] MEDS: 0.9 % SODIUM CHLORIDE 10 ML SYRINGE IV SCH ×2 (14:11→22:31)
[2018-09-19] MEDS ORDERED: GLUCAGON,HUMAN RECOMBINANT 1 MG VIAL IV ONE (19:55)
[2018-09-20] MEDS ORDERED: MAGNESIUM SULFATE 2 GM/50 ML BAG IV ONE (00:27)
[2018-09-20 06:10] LABS: Basophils # (Auto) 0 K/mcL (0.0-0.3); Basophils % (Auto) 0.3 % (0.0-2.0); Eosinophils # (Auto) 0.3 K/mcL (0.0-0.7); Granulocytes % (Auto) 75.6 % (38.0-78.0); Lymphocytes # (Auto) 0.7 K/mcL (1.5-4.8); Lymphocytes % (Auto) 10.7 % (15.5-49.0); Mean Cell Volume 96.9 fL (80.0-100.0); Mean Corpuscular HGB Conc 32.5 g/dL (31.0-36.0); Monocytes # (Auto) 0.5 K/mcL (0.1-0.9); Monocytes % (Auto) 8.4 % (1.0-12.0); Platelet Count 136 K/mcL (140-440); RBC 2.82 M/mcL (4.50-5.90); Red Cell Distribution Width 16.6 % (11.5-14.5)
[2018-09-20] MEDS: 0.9 % SODIUM CHLORIDE 10 ML SYRINGE IV SCH ×3 (06:13→22:23)
[2018-09-20 06:38] LABS: ALT/SGPT 19 U/l (0-40); Albumin 3.1 gm/dL (3.2-5.2); Albumin/Globulin Ratio 1.6 (1.0-2.3); Alkaline Phosphatase 37 U/L (39-117); Bilirubin,Direct < 0.2 mg/dL (0.0-0.3); Blood Urea Nitrogen 21 mg/dl (8-23); Gamma Glutamyl Transpeptidase 13 U/L (8-61); Uric Acid 6.5 mg/dL (2.5-8.0)
--- NOTE | 2018-09-20 08:30 | Operative Note ---
DATE OF OPERATION: 09/19/2018 PROCEDURE: Esophagogastroduodenoscopy. PHP WEB DEVELOPER AND DIVERSIFIED CROPS FARMWORKER: Jose Gray M.D. ANESTHETIC USED: Versed 1 mg IV, propofol 80 mg IV. PREOPERATIVE DIAGNOSIS: Gross GI bleeding with anemia in a patient on Plavix and aspirin. Elevated BUN of 33 with normal creatinine. POSTOPERATIVE DIAGNOSIS: Normal EGD. DESCRIPTION OF PROCEDURE: Prior to the procedure, the patient provided his own informed consent. The patient was evaluated and considered medically fit for endoscopy. With the patient in the left lateral decubitus position, a gastroscope was advanced via the mouth to the esophagus under direct vision. The esophagus appears normal throughout its length without ulcer, stricture, mass, hiatal hernia, varices or Mikala-Muse tear. Stomach endoscopically normal, including retroflexed view. The duodenum was normal to the third portion. COMPLICATIONS: None immediate. RECOMMENDATIONS AND FOLLOWUP: Will write for colon prep later throughout this morning and throughout the afternoon and then plan a colonoscopy later tonight to evaluate and possibly intervene for GI bleeding, presumably from a colonic source. STEPHANIM:anne Job ID: [id number] Doc ID: [id number] Jose Kitchen PA-C
--- NOTE | 2018-09-20 08:45 | Operative Note ---
DATE OF OPERATION: 09/19/2018 PROCEDURE: Colonoscopy. PAEDIATRIC SURGEON AND PHARMACOGENETICIST: Jose Gray M.D. ANESTHETIC USED: Propofol 280 mg IV, Versed 2 mg IV, preop glucagon 0.75 mg IV. PREOPERATIVE DIAGNOSIS: Patient with a known history of severe diverticulosis presented with gross GI bleeding. EGD earlier today was normal. POSTOPERATIVE DIAGNOSIS: Severe arellano diverticulosis in the remaining colon with recent bleeding but without identifiable site of current active bleeding. DESCRIPTION OF PROCEDURE: Prior to procedure, the patient provided his own informed consent. The patient was evaluated and considered medically fit for endoscopy. With the patient in the left lateral decubitus position, a rectal exam was performed which was notable for grossly bloody fluid with clots and little bits of stool on the exam finger. Thereafter, a pediatric colonoscope was advanced into the rectum under direct vision. The quality of the prep was marginal. There was actually very little solid stool, but there was so much blood and clots that examination was difficult despite the prep that he had received earlier this morning and this afternoon. There is arellano diverticulosis of a severe degree throughout the entire colon. The diverticulosis is especially difficult to negotiate in the area of the anastomosis. In this area, there is a lot of tight angulation and distortion of the lumen, and there is a lot of blood making it difficult to identify how to traverse the colon. It took me about 15 minutes to get above the anastomosis, and during that time I copiously irrigated the lumen of the colon, and I used glucagon to slow the colon motility. Eventually I was able to reach the cecum and appendiceal orifice. There was blood all the way through the entire colon and clots. The blood looks fairly fresh. I could not identify any areas of active accumulation of blood. Again, I went back and forth throughout the colon several times, irrigating as I would go to interrogate as many of the diverticula that I could. I suctioned out about 2.5 liters of bloody fluid by doing so. I used probably about 3 liters of water during the procedure. COMPLICATIONS: None immediate. RECOMMENDATIONS AND FOLLOWUP: Continue to monitor hemoglobin and hematocrit and transfuse as needed. If he continues to bleed, then by tomorrow I would recommend a bleeding scan, and if that is positive then angiographic intervention. Of course, the ultimate option for ongoing bleeding that cannot be controlled or identified is subtotal colectomy. Hopefully, it does not come to that point. JCM:lc Job ID: [id number] Doc ID: [id number] Jose Kitchen PA-C
--- NOTE | 2018-09-20 12:46 | Internal Med Progress Note ---
Medical - PN: Subj Patient information: Note initiated : 09/20/18 at 12:42 pm Service Date, if different from initiated Date: [] Patient: Lele Terrell 88 y/o M admitted on 09/19/18 for rectal bleeding. Chief Complaint: [] Interval history: To the ED with rectal bleeding. He states that the bleeding started yesterday while he was at a basketball game and noted blood on the toilet paper first and then had subsequent small bowel movements throughout the rest of the day where it started to become bloody in th e bowl and in his pants. He has had dizziness lightheadedness. But has no chest pain shortness of breath. 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 He is on both aspirin and Plavix does not know why he is on both of them. He says he has been on aspirin for a long time and the Plavix was started may be several years ago. He was orthostatic in the ER, found to have gross rectal bleeding. Vital signs are stable although blood pressure dropped when they did orthostatics. Case is discussed with Dr. Villarreal plan for EGD in the morning. Hemoglobin 10 down from 12.5 month prior. Protonix drip started. 09/20 Pt seen examined, s/p colonoscopy yesterday, whole colon filled with blood, no obvious bleeder identified. Pt to be monitored closely If rebleeds needs transfer to another hospital. Patient had afib overnight, but no rvr, given his h/o cva, he would need anticoagulation. However given active bleed we will hold off on same. 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 pt will benefit from evaluation by cardiology / neurology to further clarify his anticoagulation status. Pertinent ROS: Denies headache, dizziness Denies chest pain, palpitations Denies cough or shortness of breath Denies abdominal pain, nausea or vomiting. - Constitutional Vitals: Vital Signs Temp Pulse Resp BP Pulse Ox 97.8 F 69 20 134/66 98 09/20/18 11:55 09/20/18 05:31 09/20/18 11:55 09/20/18 11:55 09/20/18 11:55 Period Temp Pulse Resp BP Sys/Mcnamara Pulse Ox Last 24 Hr 97.8 F-98.9 F 35-122 14-97 75-145/52-99 79-100 Intake and Output 09/19/18 09/20/18 09/20/18 21:59 05:59 13:59 Intake Total 300 60 Output Total 6026 905 2759 Balance -1451 -390 -5908 Weight 187 lb 8 oz Intake & Output: Intake & Output 09/19/18 09/20/18 09/20/18 21:59 05:59 13:59 Intake Total 300 60 Output Total 6026 018 4490 Balance -1451 -390 5904 Weight 187 lb 8 oz Intake: IV 50 Oral 300 10 Output: Void Amount 450 5908 # of times incontinent of urine 1 0 Stool 1750 Other: Urine Appearance Clear Urine Color Dark Red Bright Yellow Urine Odor Normal Stool Size Small Stool Color Dark Red Blood Stool Consistency Liquid # Voids 1 1 # Bowel Movements 1 # of times incontinent of 1 Bowels Exam: Constitutional; Afebrile, cooperative, alert, not in distress. Respiratory system: Air Entry equal on both sides, No crackles or wheezing, no rhonchi. CVS- Rate rhythm regular, S1,S2 heard, no gallop, no rub. Abdomen- Soft nontender abdomen, no organomegaly, no tenderness, no guarding or rigidity, TRIPE FINISHER- AOOx3, moving all extremities. Medical - PN: Obj Da - Labs CBC & Chem 7: 09/20/18 03:21 09/20/18 03:21 Labs: Abnormal Lab Results 09/20/18 09/20/18 09/19/18 03:21 03:21 18:15 RBC 2.82 L Hgb 8.9 L 10.7 L Hct 27.4 L 32.3 L POC Hct RDW 16.6 H Plt Count 136 L Lymph % (Auto) 10.7 L Lymph # (Auto) 0.7 L Potassium POC BUN BUN POC Creatinine POC Glucose Calcium 8.0 L POC WB Ioniz Calcium Magnesium 2.6 H Alkaline Phosphatase 37 L Total Protein 5.0 L Albumin 3.1 L Globulin 1.9 L 09/19/18 09/19/18 09/19/18 05:39 05:39 00:30 RBC Hgb 9.1 L Hct 28.2 L POC Hct 25.0 L RDW Plt Count Lymph % (Auto) Lymph # (Auto) Potassium 5.2 H POC BUN 30 H BUN 33 H POC Creatinine 1.3 H POC Glucose 106 H Calcium POC WB Ioniz Calcium 1.07 L Magnesium Alkaline Phosphatase Total Protein Albumin Globulin 09/19/18 00:30 RBC 3.23 L Hgb 10.4 L Hct 31.8 L POC Hct RDW 14.6 H Plt Count Lymph % (Auto) 11.7 L Lymph # (Auto) 0.7 L Potassium POC BUN BUN POC Creatinine POC Glucose Calcium POC WB Ioniz Calcium Magnesium Alkaline Phosphatase Total Protein Albumin Globulin Meds: Medications Albuterol/Ipratropium (Duoneb) 3 ml NEB Q4HP PRN PRN Reason: Shortness Of Breath Atenolol (Tenormin) 50 mg PO BID [facility] Gabapentin (Neurontin) 300 mg PO TID [facility] Potassium Chloride 40 meq/ (Dextrose) 520 mls @ 130 mls/hr IV ONCE PRN PRN Reason: Potassium < 3 Magnesium Sulfate (Magnesium Sulfate) 2 gm in 50 mls @ 50 mls/hr IV ONCE PRN PRN Reason: Magnesium </= 1.6 Memantine (Namenda) 5 mg PO BID [facility] Ondansetron HCl (Zofran) 4 mg IV Q4HP PRN PRN Reason: Nausea And Vomiting Pantoprazole Sodium (Protonix) 40 mg PO QDAY [facility] Polyethylene Glycol (Miralax) 17 gm PO DAILYP PRN PRN Reason: Constipation Last Admin: 09/19/18 15:57 Dose: 17 gm Documented by: Potassium Chloride (Kdur) 40 meq PO ONCE PRN PRN Reason: Potssium is 3-3.5 Potassium Chloride (Kdur) 40 meq PO ONCE PRN PRN Reason: Potassium < 3 Prochlorperazine (Compazine) 10 mg IV Q6HP PRN PRN Reason: Nausea And Vomiting Sertraline HCl (Zoloft) 25 mg PO QDAY [facility] Simvastatin (Zocor) 10 mg PO QPM [facility] Sodium Chloride (Saline Flush) 10 ml IV Q8 [facility] Last Admin: 09/20/18 06:13 Dose: 10 ml Documented by: Medical - PN: A/P - Time Spent With Patient Total time spent is greater than 50% in coordination of care (as documented) at patient's floor/unit and/or counseling patient: - Narrative A/P Narrative: A: *GI bleed: Lower, Diverticular *CAD w/CABG: *h/o diastolic(II) CHF: *CVA x3: *h/o stage I sigmoid adenocarcinoma: 10/02 resection 05/2018 *Dementia/Depression: *Neuropathy: P: , IVF's -d/c iv ppi, resume oral ppi -serial H&H for now. -GI consulted appreciated. -monitor fluid status -hold home plavix/asa, restart single agent(plavix) when ok per GI, clarify DAPT (possibly started on plavix after CVA already on ASA per pt), Pt also now has afib (albiet intermittent) would warrant anticoagulation. will defer decision to handle machine operator/neurologist. -resume clear liquid diet. -ppx: SCD/ppi Medical - PN: Qual - VTE Deep Vein Thrombosis/Pulmonary Embolism Present on Admission: No
[2018-09-20] MEDS ORDERED: GLUCAGON,HUMAN RECOMBINANT 1 MG VIAL ONE (13:25)
[2018-09-20] MEDS: GABAPENTIN 300 MG CAPSULE PO SCH ×2 (15:29→22:23)
[2018-09-20] MEDS ORDERED: SIMVASTATIN 10 MG TABLET PO SCH (21:00)
[2018-09-20] MEDS: ATENOLOL 50 MG TABLET PO SCH (22:23)
[2018-09-20] MEDS: MEMANTINE 10 MG TABLET PO SCH (22:23)
[2018-09-20] MEDS ORDERED: METOPROLOL TARTRATE 5 MG/5 ML VIAL IV PRN (22:39)
[2018-09-21] MEDS: 0.9 % SODIUM CHLORIDE 10 ML SYRINGE IV SCH ×3 (06:31→22:08)
[2018-09-21 06:53] LABS: Basophils # (Auto) 0 K/mcL (0.0-0.3); Basophils % (Auto) 0.1 % (0.0-2.0); Eosinophils # (Auto) 0.3 K/mcL (0.0-0.7); Eosinophils % (Auto) 5.2 % (0.0-7.0); Lymphocytes # (Auto) 0.6 K/mcL (1.5-4.8); Lymphocytes % (Auto) 12.6 % (15.5-49.0); Mean Cell Volume 98.1 fL (80.0-100.0); Mean Corpuscular HGB Conc 31.9 g/dL (31.0-36.0); Monocytes # (Auto) 0.6 K/mcL (0.1-0.9); Monocytes % (Auto) 11.1 % (1.0-12.0); Platelet Count 144 K/mcL (140-440); RBC 2.75 M/mcL (4.50-5.90); Red Cell Distribution Width 16.7 % (11.5-14.5)
[2018-09-21 07:14] LABS: ALT/SGPT 19 U/l (0-40); Albumin 3.4 gm/dL (3.2-5.2); Albumin/Globulin Ratio 1.4 (1.0-2.3); Alkaline Phosphatase 41 U/L (39-117); Bilirubin,Direct < 0.2 mg/dL (0.0-0.3); Blood Urea Nitrogen 12 mg/dl (8-23); Gamma Glutamyl Transpeptidase 13 U/L (8-61); Uric Acid 7.2 mg/dL (2.5-8.0)
[2018-09-21] MEDS ORDERED: PANTOPRAZOLE 40 MG TABLET PO SCH (07:30)
[2018-09-21] MEDS ORDERED: SERTRALINE 50 MG TABLET PO SCH (09:00)
[2018-09-21] MEDS: MEMANTINE 10 MG TABLET PO SCH ×2 (09:14→22:06)
[2018-09-21] MEDS: GABAPENTIN 300 MG CAPSULE PO SCH ×3 (09:14→22:07)
[2018-09-21] MEDS: ATENOLOL 50 MG TABLET PO SCH ×2 (09:14→23:14)
[2018-09-21] MEDS ORDERED: PROCHLORPERAZINE 10 MG/2 ML VIAL IV PRN (09:59)
[2018-09-21] MEDS ORDERED: POTASSIUM CHLORIDE 20 MEQ TABLET PO PRN ×2 (09:59)
[2018-09-21] MEDS ORDERED: ONDANSETRON 4 MG/2 ML VIAL IV PRN (09:59)
[2018-09-21] MEDS ORDERED: MAGNESIUM SULFATE 2 GM/50 ML BAG IV PRN (09:59)
[2018-09-21] MEDS ORDERED: IPRATROPIUM/ALBUTEROL 3 ML AMPUL.NEB NEB PRN (09:59)
[2018-09-21] MEDS ORDERED: METOPROLOL TARTRATE 5 MG/5 ML VIAL IV PRN (09:59)
[2018-09-21] MEDS ORDERED: POLYETHYLENE GLYCOL 3350 17 GM PACKET PO PRN (09:59)
[2018-09-21] MEDS ORDERED: POTASSIUM CHLORIDE 40 MEQ in DEXTROSE 5% IN WATER 500 ML IV PRN (09:59)
--- NOTE | 2018-09-21 13:11 | Internal Med Progress Note ---
Medical - PN: Subj Patient information: Note initiated : 09/21/18 at 1:09 pm Service Date, if different from initiated Date: [] Patient: Lele Terrell 88 y/o M admitted on 09/19/18 for rectal bleeding. Chief Complaint: [] Interval history: To the ED with rectal bleeding. He states that the bleeding started yesterday while he was at a basketball game and noted blood on the toilet paper first and then had subsequent small bowel movements throughout the rest of the day where it started to become bloody in the bowl and in his pants. He has had dizziness lightheadedness. But has no chest pain shortness of breath. 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 He is on both aspirin and Plavix does not know why he is on both of them. He says he has been on aspirin for a long time and the Plavix was started may be several years ago. He was orthostatic in the ER, found to have gross rectal bleeding. Vital signs are stable although blood pressure dropped when they did orthostatics. Case is discussed with Dr. Villarreal plan for EGD in the morning. Hemoglobin 10 down from 12.5 month prior. Protonix drip started. 09/20 Pt seen examined, s/p colonoscopy yesterday, whole colon filled with blood, no obvious bleeder identified. Pt to be monitored closely If rebleeds needs transfer to another hospital. Patient had afib overnight, but no rvr, given his h/o cva, he would need anticoagulation. However given active bleed we will hold off on same. 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 pt will benefit from evaluation by cardiology / neurology to further clarify his anticoagulation status. 09/21 Patient seen and examined, no acute overnight events. No more bleeding. Hemoglobin slightly low today compared to yesterday. He was in A. fib again last night. I reviewed the plan of care with the patient, it seems that at this time he is not bleeding anymore. We will continue to hold off on aspirin and Plavix. I explained that he has atrial fibrillation will need anticoagulation for same. However this will need to be decided by his band sawing machine operator We will transfer the patient to [facility]. If remains stable by tomorrow we will discharge him home Pertinent ROS: Denies headache, dizziness Denies chest pain, palpitations Denies cough or shortness of breath Denies abdominal pain, nausea or vomiting. - Constitutional Vitals: Vital Signs Temp Pulse Resp BP Pulse Ox 98.4 F 69 18 119/63 96 09/21/18 07:29 09/21/18 07:29 09/21/18 07:29 09/21/18 07:29 09/21/18 07:38 Period Temp Pulse Resp BP Sys/Mcnamara Pulse Ox Last 24 Hr 98.4 F-99.7 F 64-69 12-22 107-154/50-73 93-100 Intake and Output 09/20/18 09/21/18 09/21/18 21:59 05:59 13:59 Intake Total 1425 240 Output Total 1675 1275 Balance -250 -1275 240 Weight 189 lb 189 lb Patient Weight 09/22/18 05:59 Weight 189 lb Intake & Output: Intake & Output 09/20/18 09/21/18 09/21/18 21:59 05:59 13:59 Intake Total 1425 240 Output Total 1675 1275 Balance -250 -1275 240 Weight 189 lb 189 lb Intake: Oral 1425 240 Output: Void Amount 1675 1275 # of times incontinent of urine 0 Other: Meal Dinner Breakfast Percent of Meal Consumed 100% 75% Urine Appearance Clear Urine Color Pale Urine Odor Normal # Voids 1 Exam: Constitutional; Afebrile, cooperative, alert, not in distress. Eyes- No icterus, , No periorbital swelling Ears- Ext ear normal, hearing normal to conversation. Neck- Midline trachea, supple Respiratory system: Air Entry equal on both sides, No crackles or wheezing, no rhonchi. CVS- Rate rhythm irregular, S1,S2 heard, no gallop, no rub. Abdomen- Soft nontender abdomen, no organomegaly, no tenderness, no guarding or rigidity, COMMUNITY CASE MANAGER- AOOx3, Medical - PN: Obj Da - Labs CBC & Chem 7: 09/21/18 03:35 09/21/18 03:35 Labs: Abnormal Lab Results 09/21/18 09/21/18 09/20/18 03:35 03:35 03:21 RBC 2.75 L Hgb 8.6 L Hct 26.9 L POC Hct RDW 16.7 H Plt Count Lymph % (Auto) 12.6 L Lymph # (Auto) 0.6 L Potassium POC BUN BUN POC Creatinine POC Glucose Calcium 8.0 L POC WB Ioniz Calcium Magnesium 2.6 H Alkaline Phosphatase 37 L Total Protein 5.8 L 5.0 L Albumin 3.1 L Globulin 1.9 L 09/20/18 09/19/18 09/19/18 03:21 18:15 05:39 RBC 2.82 L Hgb 8.9 L 10.7 L 9.1 L Hct 27.4 L 32.3 L 28.2 L POC Hct RDW 16.6 H Plt Count 136 L Lymph % (Auto) 10.7 L Lymph # (Auto) 0.7 L Potassium POC BUN BUN POC Creatinine POC Glucose Calcium POC WB Ioniz Calcium Magnesium Alkaline Phosphatase Total Protein Albumin Globulin 09/19/18 09/19/18 09/19/18 05:39 00:30 00:30 RBC 3.23 L Hgb 10.4 L Hct 31.8 L POC Hct 25.0 L RDW 14.6 H Plt Count Lymph % (Auto) 11.7 L Lymph # (Auto) 0.7 L Potassium 5.2 H POC BUN 30 H BUN 33 H POC Creatinine 1.3 H POC Glucose 106 H Calcium POC WB Ioniz Calcium 1.07 L Magnesium Alkaline Phosphatase Total Protein Albumin Globulin Meds: Medications Albuterol/Ipratropium (Duoneb) 3 ml NEB Q4HP PRN PRN Reason: Shortness Of Breath Atenolol (Tenormin) 50 mg PO BID [facility] Gabapentin (Neurontin) 300 mg PO TID [facility] Potassium Chloride 40 meq/ (Dextrose) 520 mls @ 130 mls/hr IV ONCE PRN PRN Reason: Potassium < 3 Magnesium Sulfate (Magnesium Sulfate) 2 gm in 50 mls @ 50 mls/hr IV ONCE PRN PRN Reason: Magnesium </= 1.6 Memantine (Namenda) 5 mg PO BID [facility] Metoprolol Tartrate (Lopressor) 5 mg IV Q4HP PRN PRN Reason: Tachyarrhythmias Ondansetron HCl (Zofran) 4 mg IV Q4HP PRN PRN Reason: Nausea And Vomiting Pantoprazole Sodium (Protonix) 40 mg PO QAMAC [facility] Polyethylene Glycol (Miralax) 17 gm PO DAILYP PRN PRN Reason: Constipation Potassium Chloride (Kdur) 40 meq PO ONCE PRN PRN Reason: Potssium is 3-3.5 Potassium Chloride (Kdur) 40 meq PO ONCE PRN PRN Reason: Potassium < 3 Prochlorperazine (Compazine) 10 mg IV Q6HP PRN PRN Reason: Nausea And Vomiting Sertraline HCl (Zoloft) 25 mg PO DAILY [facility] Simvastatin (Zocor) 10 mg PO QPM [facility] Sodium Chloride (Saline Flush) 10 ml IV Q8 [facility] Medical - PN: A/P - Time Spent With Patient Total time spent is greater than 50% in coordination of care (as documented) at patient's floor/unit and/or counseling patient: - Narrative A/P Narrative: A: *GI bleed: Lower, Diverticular *CAD w/CABG: *h/o diastolic(II) CHF: *CVA x3: *h/o stage I sigmoid adenocarcinoma: / resection 05/2018 *Dementia/Depression: *Neuropathy: P: , IVF's -d/c iv ppi, resume oral ppi -serial H&H for now. -GI consulted appreciated. -monitor fluid status -hold home plavix/asa, restart single agent(plavix) when ok per GI, clarify DAPT (possibly started on plavix after CVA already on ASA per pt), Pt also now has afib (albiet intermittent) would warrant anticoagulation. will defer decision to band sawing machine operator/neurologist. -resume cardiac diet/carb -ppx: SCD/ppi if remains stable by tomorrow, plan for d/c in AM Medical - PN: Qual - VTE Deep Vein Thrombosis/Pulmonary Embolism Present on Admission: No
[2018-09-21] MEDS ORDERED: SIMVASTATIN 10 MG TABLET PO SCH (21:00)
[2018-09-22 05:57] LABS: Basophils # (Auto) 0 K/mcL (0.0-0.3); Basophils % (Auto) 0.4 % (0.0-2.0); Eosinophils # (Auto) 0.2 K/mcL (0.0-0.7); Eosinophils % (Auto) 4.7 % (0.0-7.0); Granulocytes % (Auto) 68.2 % (38.0-78.0); Lymphocytes # (Auto) 0.9 K/mcL (1.5-4.8); Mean Cell Volume 97.9 fL (80.0-100.0); Mean Corpuscular HGB Conc 32.2 g/dL (31.0-36.0); Monocytes # (Auto) 0.6 K/mcL (0.1-0.9); Monocytes % (Auto) 10.7 % (1.0-12.0); Platelet Count 157 K/mcL (140-440); Red Cell Distribution Width 16.4 % (11.5-14.5)
[2018-09-22 06:32] LABS: ALT/SGPT 19 U/l (0-40); Albumin 3.5 gm/dL (3.2-5.2); Albumin/Globulin Ratio 1.4 (1.0-2.3); Alkaline Phosphatase 40 U/L (39-117); Bilirubin,Direct < 0.2 mg/dL (0.0-0.3); Blood Urea Nitrogen 14 mg/dl (8-23); Gamma Glutamyl Transpeptidase 12 U/L (8-61); Uric Acid 7.7 mg/dL (2.5-8.0)
[2018-09-22] MEDS: 0.9 % SODIUM CHLORIDE 10 ML SYRINGE IV SCH (06:39)
[2018-09-22] MEDS ORDERED: PANTOPRAZOLE 40 MG TABLET PO SCH (07:30)
[2018-09-22] MEDS ORDERED: SERTRALINE 50 MG TABLET PO SCH (09:00)
[2018-09-22] MEDS: MEMANTINE 10 MG TABLET PO SCH (09:59)
[2018-09-22] MEDS: ATENOLOL 50 MG TABLET PO SCH (10:00)
[2018-09-22] MEDS: GABAPENTIN 300 MG CAPSULE PO SCH (10:00)
--- NOTE | 2018-09-22 10:49 | Discharge Summary ---
Medical - DS: Prov Patient information: Note initiated : 09/22/18 at 10:40 am Service Date, if different from initiated Date: [] Patient: Lele Terrell 88 y/o M admitted on 09/19/18 for rectal bleeding. Chief Complaint: [] Date of admission: 09/19/18 02:38 Discharge date: 09/22/18 Primary care physician: Timothy Kitchen Consults: 09/19/18 Consult to Physician [CONS] Stat Comment: Consulting Provider: Edu Sosa Reason For Exam: Physician to Consult Consult to Physician [CONS] Stat Comment: Consulting Provider: Jose Gray Reason For Exam: Physician to Consult Discharging clinician: Maame Bryan Medical - DS: Meds - Discharge Medications Active and Home Medications: Home Medications aspirin 81 mg tablet,delayed release 81 mg PO QDAY 11/08/15 [History Confirmed 09/20/18 Last Taken 05/15/18] Bantry-3/Dha/Epa/Fish Oil [Fish Oil 1,000 mg Softgel] 2 cap PO DAILY 07/01/17 [History Confirmed 09/20/18 Last Taken 05/15/18] Super Beet Juice 1 appful PO DAILY 03/16/18 [History Confirmed 09/20/18 Last Taken 05/14/18] Ferrous Sulfate 325 mg PO DAILY 04/12/18 [History Confirmed 09/20/18 Last Taken 05/15/18] Magnesium Hydroxide [Milk of Magnesia] 30 ml PO BID 04/12/18 [History Confirmed 09/20/18 Last Taken 05/15/18] Memantine [Namenda] 5 mg PO BID 04/13/18 [History Confirmed 09/20/18 Last Taken 05/15/18] clopidogrel 75 mg tablet 75 mg PO QDAY #90 tab 06/03/18 [Rx Confirmed 09/20/18 Last Taken Unknown] sertraline 25 mg tablet 25 mg PO QDAY #30 tab 07/12/18 [Rx Confirmed 09/20/18 Last Taken Unknown] gabapentin 100 mg capsule 300 mg PO TID 90 Days #810 cap 08/16/18 [Rx Confirmed 09/20/18 Last Taken Unknown] pantoprazole 40 mg tablet,delayed release 40 mg PO QDAY #90 tab 08/20/18 [Rx Confirmed 09/20/18 Last Taken Unknown] simvastatin 10 mg tablet 10 mg PO QPM #90 tab 09/01/18 [Rx Confirmed 09/20/18 Last Taken Unknown] atenolol 50 mg tablet 50 mg PO BID #180 tab 09/13/18 [Rx Confirmed 09/20/18 Last Taken Unknown] Ranitidine HCl [Acid Casino Supervisor] 150 mg PO BID 09/20/18 [History Confirmed 09/20/18 Last Taken Unknown] Medical - DS: Hosp Hospital course: He states that the bleeding started yesterday while he was at a basketball game and noted blood on the toilet paper first and then had subsequent small bowel movements throughout the rest of the day where it started to become bloody in the bowl and in his pants. He has had dizziness lightheadedness. But has no chest pain shortness of breath. 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 He is on both aspirin and Plavix does not know why he is on both of them. He says he has been on aspirin for a long time and the Plavix was started may be several years ago. He was orthostatic in the ER, found to have gross rectal bleeding. Vital signs are stable although blood pressure dropped when they did orthostatics. Case is discussed with Dr. Villarreal plan for EGD in the morning. Hemoglobin 10 down from 12.5 month prior. Protonix drip started. 09/20 Pt seen examined, s/p colonoscopy yesterday, whole colon filled with blood, no obvious bleeder identified. Pt to be monitored closely If rebleeds needs transfer to another hospital. Patient had afib overnight, but no rvr, given his h/o cva, he would need anticoagulation. However given active bleed we will hold off on same. 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 pt will benefit from evaluation by cardiology / neurology to further clarify his anticoagulation status. 09/21 Patient seen and examined, no acute overnight events. No more bleeding. Hemoglobin slightly low today compared to yesterday. He was in A. fib again last night. I reviewed the plan of care with the patient, it seems that at this time he is not bleeding anymore. We will continue to hold off on aspirin and Plavix. I explained that he has atrial fibrillation will need anticoagulation for same. However this will need to be decided by his ore mixer We will transfer the patient to [facility]. If remains stable by tomorrow we will discharge him home 09/22 Patient seen examined, no acute overnight events, pt doing well,no more bleeding hb stable 8.5 stable for discharge In Summary Patient with h/o multiple CVA admitted to hospital with lower GI bleed. He has had lower GI bleed in the past before. Patient remained hemodynamically stable, hemoglobin dropped down to 8.5. He had a colonoscopy done which showed blood in the colon but no active site was noted. It was determined that this was a diverticular bleed. Aspirin and Plavix were held. The patient remained stable after the colonoscopy, and was deemed stable for discharge after 48 hours of normal bleeding. During the hospital stay it was also noted that the patient developed atrial fibrillation which was intermittent. Patient is already on aspirin and Plavix, but in light of this new atrial fibrillation he would need to be on anticoagulation with either a newer anticoagulant agent or Coumadin. We are not starting any new medication at this time in light of recent GI bleed. I have advised the patient to see his ore mixer within the week or 2 to determine the appropriate antiplatelet and anticoagulation agent. Should the patient develop further GI bleed he would need to be evaluated at a center that can do a nuclear bleeding scan, and has the capability to do interventional procedures to stop the bleeding. Discharge diagnosis: GI bleed, Atrial fibrillation - Time Spent with Patient Total time spent providing and/or coordinating discharge services: Greater than 30 minutes Medical - DS: Exam - Constitutional Vitals: Vital Signs Temp Pulse Pulse Pulse Pulse Pulse Resp 09/22/18 08:00 98.4 F 68 68 68 68 16 09/22/18 04:00 97.4 F 67 14 09/21/18 23:40 97.9 F 63 14 09/21/18 19:06 98.0 F 67 16 09/21/18 16:00 97.9 F 67 16 09/21/18 12:00 98.8 F 63 18 BP BP Pulse Ox 09/22/18 08:00 140/76 99 09/22/18 04:00 110/63 94 09/21/18 23:40 111/68 95 09/21/18 19:06 96/56 93 09/21/18 16:00 114/66 98 09/21/18 12:00 115/64 99 Intake and Output 09/21/18 09/22/18 09/22/18 21:59 05:59 13:59 Intake Total 180 320 600 Output Total 900 500 0 Balance -720 -180 600 Intake: Oral 180 320 600 Output: Void Amount 900 500 0 Other: Meal Breakfast Percent of Meal Consumed 100% Feeding Ability Independent Urine Appearance Clear Clear Urine Color Light Hansa Straw Urine Odor Normal Normal # Voids 2 Weight 192 lb Additional comments: Constitutional; Afebrile, cooperative, alert, not in distress. Respiratory system: Air Entry equal on both sides, No crackles or wheezing, no rhonchi. CVS- Rate rhythm regular, S1,S2 heard, no gallop, no rub. 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 Medical - DS: Data Labs on day of discharge: Labs from last 24 hours 09/22/18 09/22/18 04:15 04:15 WBC 5.3 RBC 2.70 L Hgb 8.5 L Hct 26.4 L MCV 97.9 MCH 31.5 MCHC 32.2 RDW 16.4 H Plt Count 157 MPV 8.4 Gran % 68.2 Lymph % (Auto) 16.0 [place] % (Auto) 10.7 Eos % (Auto) 4.7 Baso % (Auto) 0.4 Gran # 3.6 Lymph # (Auto) 0.9 L [place] # (Auto) 0.6 Eos # (Auto) 0.2 Baso # (Auto) 0 Sodium 141 Potassium 4.2 Chloride 103 Carbon Dioxide 28 Anion Gap 10.0 BUN 14 Creatinine 1.2 GFR Calculation 54 Glucose 93 Uric Acid 7.7 Calcium 9.1 Phosphorus 3.9 Magnesium 1.8 Total Bilirubin 0.2 Direct Bilirubin < 0.2 GGT 12 AST 19 ALT 19 Alkaline Phosphatase 40 Lactate Dehydrogenase 126 Total Protein 6.0 Albumin 3.5 Globulin 2.5 Albumin/Globulin Ratio 1.4 Triglycerides 111 Medical - DS: A/P - Patient/Caregiver Discharge Instructions Activity: as per physical therapy Diet: Cardiac Additional Instructions: Please do not take aspirin and Plavix until okayed by a ore mixer. While in this hospital be found that you have atrial fibrillation, this is irregular heartbeat. You will need to be on a different type of a blood thinner because of this condition. Your ore mixer will tell you the right blood thinning medication. If you were to notice any more blood in your stools, please go to the emergency. Please follow-up with your ore mixer in 1-2 weeks Follow-up with the PCP in 1 week - Follow up Plan Follow up with: Timothy Kitchen PA-C [Primary Care Provider] - Clinton Lawton [Physician] - Disposition: Home, Self-Care Prognosis: Fair Rehab Potential: Fair I certify that the patient requires SNF services: No Overall status at discharge: patient is progressing back to baseline Medical - DS: Qual - VTE Deep Vein Thrombosis/Pulmonary Embolism Present on Admission: No
== END 2018-09-22 14:25 | disposition home or self-care (01) | DRG 378 ==
LOC: ED 23:01 → ICU 09-19 02:38 → MEDSUR 09-21 14:27
PROVIDERS: ADMIT Internal Medicine; ATTEND Internal Medicine

== ENCOUNTER 2019-09-13 11:44 | Observation (INO) ==
[2019-09-13] MEDS ORDERED: 0.9 % SODIUM CHLORIDE 1,000 ML IV ONE (11:58)
[2019-09-13 12:18] LABS: POC Blood Urea Nitrogen 35 mg/dl (8-23); POC CO2 30 mmol/L (22-30); POC Calcium, Ionized 1.16 mmol/L (1.16-1.32); POC Chloride 105 mmol/L (96-108); POC Creatinine 1.3 mg/dl (0.7-1.2); POC Glucose, Random 96 mg/dL (70-105); POC Potassium 5.6 mmol/L (3.3-5.1); POC Sodium 140 mmol/L (133-145)
--- NOTE | 2019-09-13 12:31 | Emergency Department Note ---
GI Bleed HPI - General Chief complaint: Rectal Bleed Stated complaint: RECTAL BLEEDING Time Seen by Provider: 09/13/19 11:47 Source: patient Mode of arrival: ambulatory Limitations: no limitations - History of Present Illness HPI Narrative: 89-year-old male who complains of dark red blood per rectum since 9:00 last night. He does have a history of bleeding diverticuli and last colonoscopy this time last year by Dr. Gray. He had severe diverticulosis but no specific site was identified. He does have a colonoscopy scheduled for 09/22/2019 or in approximately [address] Shahzad Robb, general surgeon. He has a history of stage II colon cancer with a removed 9 inches of his colon. He had an oncology appointment with Dr. Frye at [facility] oncology at [facility] this afternoon which he will not be making because he is in the ER. At this point he denies any significant pain. He notes that he has had melena for the last several days tarun or to the acute rectal bleed. No nausea or vomiting. No recent illness. He is on Plavix but denies any other blood thinners-Dr. Aaron put him on the status post CVA. He is not on Coumadin or a DOAC for chronic atrial fibrillation - Related Data Home Medications Medication Instructions Recorded Confirmed Super Beet Juice 1 appful PO DAILY 03/16/18 09/02/19 Ferrous Sulfate 325 mg PO DAILY 04/12/18 09/13/19 Magnesium Hydroxide [Milk of 30 ml PO BID 04/12/18 09/13/19 Magnesia] Memantine [Namenda] 5 mg PO BID 04/13/18 09/13/19 Ranitidine HCl [Acid Film Numberer] 150 mg PO BID 09/20/18 09/13/19 Previous Rx's Medication Instructions Recorded pantoprazole 40 mg tablet,delayed 40 mg PO QDAY #90 tab 11/22/18 release atenolol 50 mg tablet 50 mg PO BID #180 tab 03/28/19 simvastatin 10 mg tablet 10 mg PO QPM #90 tab 06/23/19 gabapentin 100 mg capsule 300 mg PO TID 90 Days #810 cap 08/25/19 sertraline 25 mg tablet 25 mg PO QDAY 30 Days #30 tab 09/01/19 peg 3350-electrolytes 236 240 ml PO Q10M #4000 ml 09/06/19 gram-22.74 gram-6.74 gram-5.86 gram solution Allergies Allergy/AdvReac Type Severity Reaction Status Date / Time No Known Drug Allergies Allergy Verified 09/02/19 10:27 Review of Systems All systems ED: reviewed and negative except as stated. Past Medical History - Past Medical History Attestation: Yes: The following information was validated with the patient. 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) Gastroesophageal reflux disease (Chronic) Hyperlipidemia (Chronic) Atherosclerotic heart disease (Chronic) Cerebrovascular disease (Chronic) Primary osteoarthritis of right knee (Acute) Abdominal aortic aneurysm (Chronic) Pneumonia (Chronic) Pancreatitis (Chronic) Neuropathy (Chronic 09/13/14) Lumbago (Chronic) Hypertension, essential (Chronic 09/13/14) CAD (coronary artery disease) (Chronic) Anemia (Acute 11/10/14) History of sigmoidoscopy (Acute) Past Surgical History (Last Reviewed 09/06/19 @ 13:12 by Shahzad Robb MD) S/P CABG x 3 (Chronic) History of right-sided carotid endarterectomy (Chronic) History of left-sided carotid endarterectomy (Chronic) History of hernia repair (Chronic) History of cholecystectomy (Chronic 12/21/13) History of colectomy (Acute) History of colonoscopy (Chronic 03/05/18) History of esophagogastroduodenoscopy (EGD) (Chronic 03/05/18) Medical history: Reports: CVA, hyperlipidemia, hypertension, myocardial infarction Surgical history ED: Reports: cancer surgery, cholecystectomy, colectomy, coronary bypass (CABG) - Social History smoking status: Former smoker Alcohol use: Reports: None Physical Exam No acute distress resting comfortably. He seems to be a reasonable historian. Normocephalic atraumatic. Conjunctive are clear sclerae white nonicteric. No nasal discharge or congestion. Oropharynx is pink and moist. Dentures noted. Neck is supple without lymphadenopathy thyromegaly or carotid bruit. Heart is irregularly irregular rhythm suggestive of atrial fibrillation. Lungs are clear to auscultation bilaterally without wheezes rales rhonchi or respiratory distress. Abdomen is soft nontender nondistended. Rectal exam shows robert dark red blood smeared all over his perirectal area-clearly bleeding although at this time I do not see any oozing. He has +1 pedal edema to the ankles bilaterally. Alert oriented able to answer questions appropriately. Limitations: no limitations Course Vital Signs Temperature 97.2 F 09/13/19 11:47 Pulse Rate 82 09/13/19 11:47 Respiratory Rate 16 09/13/19 11:47 Blood Pressure 105/62 09/13/19 11:47 Pulse Oximetry (%) 95 09/13/19 11:47 Temperature 97.2 F 09/13/19 11:47 Pulse Rate 58 L 09/13/19 13:34 Respiratory Rate 14 09/13/19 13:34 Blood Pressure 136/75 09/13/19 13:22 Pulse Oximetry (%) 100 09/13/19 13:34 GI Bleed - Lab Data Lab results reviewed: Yes I reviewed the patient's lab results. Result diagrams: 09/13/19 12:06 09/13/19 12:06 Lab Results 09/13/19 09/13/19 09/13/19 Range/Units 12:06 12:06 12:06 WBC 6.4 (4.50-11.00) K/mcL RBC 3.85 L (4.63-6.08) M/mcL Hgb 12.5 L (13.7-17.5) g/dL Hct 39.1 L (40.1-51.0) % POC Hct 37.0 L (41.0-55.0) % MCV 101.6 H (80.0-100.0) fL MCH 32.5 (26.0-34.0) pg MCHC 32.0 (31.0-36.0) g/dL RDW 14.2 (11.5-14.5) % Plt Count 203 (140-440) K/mcL MPV 10.1 (7.4-10.4) fL Gran % 75.7 (38.0-78.0) % Lymph % (Auto) 11.5 L (15.5-49.0) % [place] % (Auto) 9.7 (1.0-12.0) % Eos % (Auto) 2.5 (0.0-7.0) % Baso % (Auto) 0.6 (0.0-2.0) % Gran # 4.85 (1.80-8.00) K/mcL Lymph # (Auto) 0.74 L (1.50-4.80) K/mcL [place] # (Auto) 0.62 (0.10-0.90) K/mcL Eos # (Auto) 0.16 (0.00-0.70) K/mcL Baso # (Auto) 0.04 (0.00-0.30) K/mcL VBG Lactic Acid 1.3 (0.5-2.0) mmol/L POC Sodium 140 (133-145) mmol/L Sodium 141 (133-145) mmol/L POC Potassium 5.6 H (3.3-5.1) mmol/L Potassium 4.9 (3.3-5.1) mmol/L POC Chloride 105 (96-108) mmol/L Chloride 102 (96-108) mmol/L Carbon Dioxide 26 (22-30) mmol/L POC Total CO2 30 (22-30) mmol/L Anion Gap 13.0 (8-16) POC BUN 35 H (8-23) mg/dl BUN 22 (8-23) mg/dl Creatinine 1.3 H (0.7-1.2) mg/dl POC Creatinine 1.3 H (0.7-1.2) mg/dl GFR Calculation 49 Glucose 100 (70-105) mg/dL POC Glucose 96 (70-105) mg/dL Calcium 9.9 (8.6-10.4) mg/dl POC WB Ioniz Calcium 1.16 (1.16-1.32) mmol/L Total Bilirubin 0.4 (0.0-1.0) mg/dL AST 24 (0-37) U/l ALT 21 (0-40) U/l Alkaline Phosphatase 63 (39-117) U/L Total Protein 7.6 (5.9-8.4) gm/dL Albumin 4.4 (3.2-5.2) gm/dL Globulin 3.2 (2.2-3.7) gm/dL Albumin/Globulin Ratio 1.4 (1.0-2.3) Disposition Pt seen by TEACHING ARTIST/PA only: No Clinical Impression: Lower GI bleed Summary: Lower GI bleed on chronic antiplatelet therapy but not anticoagulation. We will get labs and start IV fluids. We will let the Chem-8 dictate whether or not he needs transfusion at this time. Currently vital signs are stable and he is lucid. After we get labs back we will contact GI or general surgery I briefly discussed the case with Dr. Shahzad Robb general surgeon who knows this patient well. However the patient has an acute GI bleed and Dr. Robb was quite busy; he agreed to have Dr. Irby, workforce planning analyst, go ahead and consult on this patient with the hospitalist his primary. He said that he would be back up if needed for surgical care I did discuss the case with Georgia Burgess, nurse practitioner in gastroenterology with Dr. Cordon-she came down to see the patient and agreed that the patient needed urgent endoscopy. Recommended upper endoscopy today with colonoscopy tomorrow. I did discuss the case with Dr. Land, hospitalist. We will go ahead and type and cross for 2 units of blood if needed although the patient is currently stable with normal vitals and a hemoglobin of 12.5. He could turn unstable quickly as he is on an antiplatelet and exam shows dark red blood per rectum. Dr. Land agreed to accept the patient after he returns from the GI suite Disposition: Xfer As Inpt ([facility]) Condition: Serious Referrals: Timothy Kitchen PA-C [Primary Care Provider] -
[2019-09-13 12:35] LABS: Basophils # (Auto) 0.04 K/mcL (0.00-0.30); Basophils % (Auto) 0.6 % (0.0-2.0); Eosinophils # (Auto) 0.16 K/mcL (0.00-0.70); Eosinophils % (Auto) 2.5 % (0.0-7.0); Granulocytes % (Auto) 75.7 % (38.0-78.0); Hematocrit 39.1 % (40.1-51.0); Hemoglobin 12.5 g/dL (13.7-17.5); Lymphocytes # (Auto) 0.74 K/mcL (1.50-4.80); Lymphocytes % (Auto) 11.5 % (15.5-49.0); Mean Cell Volume 101.6 fL (80.0-100.0); Mean Platelet Volume 10.1 fL (7.4-10.4); Monocytes # (Auto) 0.62 K/mcL (0.10-0.90); Monocytes % (Auto) 9.7 % (1.0-12.0); Platelet Count 203 K/mcL (140-440); RBC 3.85 M/mcL (4.63-6.08); Red Cell Distribution Width 14.2 % (11.5-14.5); WBC 6.4 K/mcL (4.50-11.00)
[2019-09-13 12:53] LABS: ALT/SGPT 21 U/l (0-40); AST/SGOT 24 U/l (0-37); Albumin 4.4 gm/dL (3.2-5.2); Albumin/Globulin Ratio 1.4 (1.0-2.3); Alkaline Phosphatase 63 U/L (39-117); Bilirubin,Total 0.4 mg/dL (0.0-1.0); Blood Urea Nitrogen 22 mg/dl (8-23); Calcium 9.9 mg/dl (8.6-10.4); Carbon Dioxide 26 mmol/L (22-30); Chloride 102 mmol/L (96-108); Globulin 3.2 gm/dL (2.2-3.7); Glomerular Filtration Rate 49; Glucose 100 mg/dL (70-105)
--- NOTE | 2019-09-13 13:27 | Internal Medicine Consult Note ---
Medical - CN: HPI - Data of Consult Patient: new to practice Consult date: 09/13/19 Requesting physician: Chi Mitchell Primary Care Provider: Timothy Kitchen Family Provider: Dr. Maria E Conde, WILLIAM Howard - Consult Narrative Reason for consult: GI bleed History of present illness: Mr. Terrell is a 89 year old M with a history of stage II colon CA treated by left segmental colectomy in 2018 who presents for evaluation of a 3 week history of melena followed by a one day history of robert hematochezia. Hbg 12.5 today. He is on Plavix for a history of atrial fibrillation, CVA, CAD with CABG. He denies any additional ASA use, but takes Advil rarely, perhaps once a month. He is otherwise asymptomatic, denying any abdominal pain, diarrhea, constipation, or weight loss. Last colonoscopy was a year ago for suspected diverticular bleed. 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 He is currently on PPI therapy. His is at the bedside and helps provide some history as the patient has mild dementia. CC: - Constitutional Constitutional: Absent: anorexia, fever(s), lethargy, malaise, weakness - Gastrointestinal Gastrointestinal: Present: as per HPI Medical - CN: PMH Medical history: CAD, CVA, SC, AAA, atrial fibrillation, dementia Surgical history: CABG, hernia, segmental colectomy, cholecystectomy Family history: reviewed and not pertinent Social history: Lives at home with . Former smoker. Medical - CN: Meds Home Medications Medication Instructions Recorded Confirmed Type Super Beet Juice 1 appful PO DAILY 03/16/18 09/02/19 History Ferrous Sulfate 325 mg PO DAILY 04/12/18 09/13/19 History Magnesium Hydroxide [Milk of 30 ml PO BID 04/12/18 09/13/19 History Magnesia] Memantine [Namenda] 5 mg PO BID 04/13/18 09/13/19 History Ranitidine HCl [Acid Telephone Directory Deliverer] 150 mg PO BID 09/20/18 09/13/19 History pantoprazole 40 mg tablet,delayed 40 mg PO QDAY #90 tab 11/22/18 09/13/19 Rx release atenolol 50 mg tablet 50 mg PO BID #180 tab 03/28/19 09/13/19 Rx simvastatin 10 mg tablet 10 mg PO QPM #90 tab 06/23/19 09/13/19 Rx gabapentin 100 mg capsule 300 mg PO TID 90 Days #810 cap 08/25/19 09/13/19 Rx sertraline 25 mg tablet 25 mg PO QDAY 30 Days #30 tab 09/01/19 09/13/19 Rx peg 3350-electrolytes 236 240 ml PO Q10M #4000 ml 09/06/19 09/06/19 Rx gram-22.74 gram-6.74 gram-5.86 gram solution Allergies Allergy/AdvReac Type Severity Reaction Status Date / Time No Known Drug Allergies Allergy Verified 09/02/19 10:27 Medical - CN: Exam - Constitutional Vitals: Temp Pulse Resp BP Pulse Ox 97.2 F 63 17 104/58 91 09/13/19 11:47 09/13/19 12:41 09/13/19 12:41 09/13/19 12:41 09/13/19 12:41 General appearance: average body habitus, cooperative, no acute distress - Head Head exam: Present: atraumatic, normal inspection, normocephalic - ENT ENT exam: Present: mucous membranes moist, normal exam, normal external ear exam - Neck Neck exam: Present: normal inspection. Absent: lymphadenopathy, thyromegaly - Respiratory Respiratory exam: Present: normal respiratory exam, CTAB. Absent: accessory muscle use - Cardiovascular Cardiovascular exam: Present: normal rate and rhythm. Absent: systolic murmur - GI/Abdominal GI/Abdominal exam: Present: normal bowel sounds, soft. Absent: hernia, mass, organomegaly, tenderness - Extremities Exam Extremities exam: Present: pedal edema - Neurological Exam Neurological exam: Present: alert - Skin Skin exam: Present: dry, normal color, warm Medical - CN: Result - Labs CBC & Chem 7: 09/13/19 12:06 09/13/19 12:06 Labs: Short CBC 09/13/19 Range/Units 12:06 WBC 6.4 (4.50-11.00) K/mcL Hgb 12.5 L (13.7-17.5) g/dL Hct 39.1 L (40.1-51.0) % Plt Count 203 (140-440) K/mcL BMP 09/13/19 12:06 Sodium 141 Potassium 4.9 Chloride 102 Carbon Dioxide 26 BUN 22 Creatinine 1.3 H Glucose 100 Calcium 9.9 Liver Function 09/13/19 Range/Units 12:06 Total Bilirubin 0.4 (0.0-1.0) mg/dL AST 24 (0-37) U/l ALT 21 (0-40) U/l Alkaline Phosphatase 63 (39-117) U/L Albumin 4.4 (3.2-5.2) gm/dL Medical - CN: A/P (1) Lower GI bleed Status: Acute Assessment and plan: I discussed his case with Dr. Irby. In light of his history of melena, we will arrange for EGD today. If this is unrevealing, he will be prepped for colonoscopy tomorrow.
--- NOTE | 2019-09-13 13:33 | Internal Med History&Physical ---
Medical - H&P: HPI Patient information: Note initiated : 09/13/19 at 1:33 pm Service Date, if different from initiated Date: [] Patient: Lele Terrell 89 y/o M admitted on for Rectal Bleeding . Chief Complaint: [] Chief complaint: BRBPR History of present illness: Mr. Terrell is a 89 year old M with a history of colon cancer status post left segmental colectomy/dementia who presents with bright red blood per rectum since last 24 hours. Patient symptoms started a few week ago with progressive melena that evolved into robert hematochezia today. Denies any associated pain or cramping or change in stool caliber or weight loss. Patient is due for colonoscopy in 2 weeks by surgery however during presentation the ER GI was consulted and patient was scheduled for upper endoscopy. Hospitalist service was consulted for admission. Patient was seen post upper endoscopy and limited colonoscopy. I discussed the case with Dr. Cordon postprocedure. Patient is due for colonoscopy in 24 hours. He will be kept under observation and will undergo hemoglobin check/transfusion if indicated. He denies associated chest pain, diaphoresis, lightheadedness or vision changes. He further denies nausea vomiting or fever. Is currently on Plavix for history of ischemic cardiomyopathy. Carries a history of peptic ulcer disease and is on PPI. 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 Etiology, attends a neuropathy clinic in [place], "hot feet...for 20 years" Lumbago (Chronic) Hypertension, essential (Chronic 09/13/14) CAD (coronary artery disease) (Chronic) Anemia (Acute 11/10/14) History of sigmoidoscopy (Acute) 05/18/2018 with colon irrigation Surgical History S/P CABG x 3 (Chronic) 2000 History of right-sided carotid endarterectomy (Chronic) 2009 History of left-sided carotid endarterectomy (Chronic) 2000 History of hernia repair (Chronic) x3 History of cholecystectomy (Chronic 12/21/13) History of colectomy (Acute) 04/17/2018-Segmental left colectomy History of colonoscopy (Chronic 03/05/18) History of esophagogastroduodenoscopy (EGD) (Chronic 03/05/18) Social History marital status: occupational status: retired smoking status: Former smoker alcohol intake frequency: does not drink additional history: 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, 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, 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 [employer] 5 children, 12 grandkids, 6 ggk Medical - H&P: Meds Home Medications Medication Instructions Recorded Confirmed Type Magnesium Hydroxide [Milk of 30 ml PO BID 04/12/18 09/13/19 History Magnesia] Memantine [Namenda] 5 mg PO BID 04/13/18 09/13/19 History pantoprazole 40 mg tablet,delayed 40 mg PO QDAY #90 tab 11/22/18 09/13/19 Rx release atenolol 50 mg tablet 50 mg PO BID #180 tab 03/28/19 09/13/19 Rx simvastatin 10 mg tablet 10 mg PO QPM #90 tab 06/23/19 09/13/19 Rx gabapentin 100 mg capsule 300 mg PO TID 90 Days #810 cap 08/25/19 09/13/19 Rx sertraline 25 mg tablet 25 mg PO QDAY 30 Days #30 tab 09/01/19 09/13/19 Rx Clopidogrel Bisulfate [Plavix] 75 mg PO DAILY 09/13/19 09/13/19 History Allergies Allergy/AdvReac Type Severity Reaction Status Date / Time No Known Drug Allergies Allergy Verified 09/02/19 10:27 Medical - H&P: Exam - Constitutional Vitals: Temp Pulse Resp BP Pulse Ox 97.2 F 59 L 10 L 136/75 94 09/13/19 11:47 09/13/19 13:22 09/13/19 13:22 09/13/19 13:22 09/13/19 13:22 General appearance: average body habitus, cooperative, no acute distress Exam: Alert oriented Head normocephalic Oral cavity dry No subconjunctival pallor No ear nose discharge Neck lymphadenopathy S1-S2 occasionally irregular, ESM grade 1 Diminished breath sounds bases Abdomen soft nontender nondistended Lower extremity no cyanosis clubbing no joint swelling Skin no suspicious lesion Psych alert cooperative Neuro nonfocal Medical - H&P: Reslt - Labs CBC & Chem 7: 09/13/19 19:29 09/13/19 12:06 Labs: Short CBC 09/13/19 Range/Units 12:06 WBC 6.4 (4.50-11.00) K/mcL Hgb 12.5 L (13.7-17.5) g/dL Hct 39.1 L (40.1-51.0) % Plt Count 203 (140-440) K/mcL BMP 09/13/19 12:06 Sodium 141 Potassium 4.9 Chloride 102 Carbon Dioxide 26 BUN 22 Creatinine 1.3 H Glucose 100 Calcium 9.9 Liver Function 09/13/19 Range/Units 12:06 Total Bilirubin 0.4 (0.0-1.0) mg/dL AST 24 (0-37) U/l ALT 21 (0-40) U/l Alkaline Phosphatase 63 (39-117) U/L Albumin 4.4 (3.2-5.2) gm/dL Medical - H&P: A/P (1) Lower GI bleed Current visit: Yes Status: Acute * Bright red blood per rectum-status post upper endoscopy. Check for hourly hemoglobin. Transfuse as indicated. Colonoscopy in 24 hours. Admit as observation with close hemodynamic monitoring * History of colon cancer status post colectomy. Patient follows up with surgery * History of ischemic cardiomyopathy/CABG on Plavix/statin * History of hypertension on atenolol * Neuropathy on gabapentin * History of dementia on memantine * Anxiety disorder on sertraline * Peptic ulcer disease/GERD on PPI * DNR * Prophylaxis SCDs Plan * Observation admit * Colonoscopy a.m. * 4 hourly hemoglobin check * Transfuse if indicated * Pre-existing well condition management as above * Colon prep per GI Medical - H&P: Qual - Stroke Symptom Onset Unknown: No
[2019-09-13] MEDS ORDERED: 0.9 % SODIUM CHLORIDE 250 ML IV SCH ×2 (13:45→19:15)
[2019-09-13] MEDS ORDERED: PROPOFOL 20 ML IV ONE (16:32)
[2019-09-13] MEDS ORDERED: MIDAZOLAM 2 MG/2 ML VIAL ONE (16:32)
[2019-09-13] MEDS ORDERED: PROPOFOL 200 MG/20 ML VIAL IV ONE (17:00)
[2019-09-13] MEDS ORDERED: MIDAZOLAM 2 MG/2 ML VIAL IV ONE (17:00)
[2019-09-13] MEDS ORDERED: KETAMINE HCL 50 MG/ML ML IV PRN (17:38)
[2019-09-13] MEDS ORDERED: MIDAZOLAM 2 MG/2 ML VIAL IV SCH (17:45)
[2019-09-13] MEDS ORDERED: PROPOFOL 200 MG/20 ML VIAL IV SCH (17:45)
[2019-09-13] MEDS ORDERED: ACETAMINOPHEN 325 MG TABLET PO PRN (19:15)
[2019-09-13] MEDS ORDERED: POTASSIUM CHLORIDE 20 MEQ PACKET PO PRN (19:15)
[2019-09-13] MEDS ORDERED: ONDANSETRON 4 MG/2 ML VIAL IV PRN (19:15)
[2019-09-13] MEDS ORDERED: MAGNESIUM SULFATE 2 GM/50 ML BAG IV PRN (19:15)
[2019-09-13] MEDS ORDERED: ACETAMINOPHEN 650 MG/65 ML BOTTLE IV PRN (19:15)
[2019-09-13] MEDS ORDERED: hydrALAZINE 20 MG/ML VIAL IV PRN (19:15)
[2019-09-13] MEDS ORDERED: MELATONIN 3 MG TABLET PO PRN (19:15)
[2019-09-13] MEDS ORDERED: POLYETHYLENE GLYCOL 3350 17 GM PACKET PO PRN (19:15)
[2019-09-13] MEDS ORDERED: ONDANSETRON 4 MG ODT TABLET SL PRN (19:15)
[2019-09-13] MEDS ORDERED: BISACODYL 10 MG SUPP.RECT PR PRN (19:15)
--- NOTE | 2019-09-13 19:16 | EGD Procedure Note ---
EGD Procedure Notes - Procedure Information Patient information: Note initiated : 09/13/19 at 7:14 pm Service Date: 09/13/19 Patient: Lele Terrell 89 y/o M admitted on 09/13/19 for Rectal Bleeding/melena. Pre-op diagnosis general: GI bleed. Post-Op Diagnosis general: GI bleed. Schatzki's ring. Procedure: Esophogogastroduodenoscopy Procedure Narrative: The procedure, alternatives and risks were discussed with the patient and the patient's questions were answered. The patient gave verbal consent to have PAVEL Shultz participate in the procedure. With endoscopist-administered intravenous sedation, the Olympus video endoscope was introduced into the esophagus. The esophagus, stomach, and duodenum were examined sequentially. At the esophagogastric junction, there was a Schatzki's ring narrowing the lumen significantly. The gastric mucosa, antrum, pyloric ring, and duodenum appeared normal. No cause of bleeding identified. Hematochezia resumed during procedure and the decision was made to prep the patient with tap water enema and proceed with sigmoidoscopy. Assessment: GI bleed. Schatzki's ring.
--- NOTE | 2019-09-13 19:18 | Colonoscopy Procedure Note ---
Colonoscopy Procedure Notes - Procedure Information Patient information: Note initiated : 09/13/19 at 7:16 pm Service Date: 09/13/19 Patient: Lele Terrell 89 y/o M admitted on 09/13/19 for Rectal Bleeding . Pre-op diagnosis general: GI bleed. Post-op diagnosis general: GI bleed, indeterminate source. Procedure: Colonoscopy Procedure narrative: The procedure, alternatives and risks were discussed with the patient and the patient's questions were answered. With endoscopist-administered intravenous sedation, the Olympus colonoscope was introduced into the rectum and advanced to hepatic flexure. Old blood and stool were seen throughout the colon. No definite bleed was identified. Pandiverticulosis was seen. Sigmoid anastomosis appeared healthy and patent. The patient will undergo full prep and return for complete colonoscopy tomorrow. Assessment: GI bleed, indeterminate source.
[2019-09-13] MEDS ORDERED: RANITIDINE HCL 150 MG PO SCH (21:00)
[2019-09-13] MEDS: 0.9 % SODIUM CHLORIDE 1,000 ML IV SCH (21:00)
[2019-09-13] MEDS: ATENOLOL 50 MG TABLET PO SCH (21:06)
[2019-09-13] MEDS: SENNOSIDES/DOCUSATE SODIUM 1 TAB TABLET PO SCH (21:16)
[2019-09-13] MEDS: DOCUSATE SODIUM 100 MG CAPSULE PO SCH (21:16)
[2019-09-13] MEDS: GABAPENTIN 300 MG CAPSULE PO SCH (21:16)
[2019-09-13] MEDS: FAMOTIDINE 20 MG TABLET PO SCH (21:16)
[2019-09-13] MEDS: SIMVASTATIN 10 MG TABLET PO SCH (21:16)
[2019-09-13] MEDS: MEMANTINE 10 MG TABLET PO SCH (21:16)
[2019-09-13] MEDS: 0.9 % SODIUM CHLORIDE 10 ML SYRINGE IV SCH (21:22)
[2019-09-14] MEDS ORDERED: PEG 3350/NA SULF,BICARB,CL/KCL 4,000 ML ORAL.SOL PO SCH (02:00)
[2019-09-14] MEDS: 0.9 % SODIUM CHLORIDE 10 ML SYRINGE IV SCH ×3 (05:01→21:17)
[2019-09-14 06:19] LABS: Hematocrit 33.5 % (40.1-51.0); Hemoglobin 10.8 g/dL (13.7-17.5); Mean Cell Volume 99.7 fL (80.0-100.0); Mean Corpuscular HGB Conc 32.2 g/dL (31.0-36.0); Mean Platelet Volume 10.1 fL (7.4-10.4); Platelet Count 136 K/mcL (140-440); RBC 3.36 M/mcL (4.63-6.08); Red Cell Distribution Width 15.9 % (11.5-14.5); WBC 6.1 K/mcL (4.50-11.00)
[2019-09-14 07:11] LABS: ALT/SGPT 13 U/l (0-40); AST/SGOT 18 U/l (0-37); Albumin 3.4 gm/dL (3.2-5.2); Alkaline Phosphatase 53 U/L (39-117); Bilirubin,Direct 0.2 mg/dL (0.0-0.3); Bilirubin,Total 0.9 mg/dL (0.0-1.0); Blood Urea Nitrogen 25 mg/dl (8-23); Calcium 8.4 mg/dl (8.6-10.4); Carbon Dioxide 24 mmol/L (22-30); Chloride 106 mmol/L (96-108); Glucose 90 mg/dL (70-105); Lactate Dehydrogenase 218 U/L (94-250); Phosphorous 3.9 mg/dL (2.7-4.5); Triglycerides 107 mg/dl (<150); Uric Acid 6.3 mg/dL (2.5-8.0)
[2019-09-14 07:15] LABS: Albumin/Globulin Ratio 1.5 (1.0-2.3); Globulin 2.2 gm/dL (2.2-3.7); Glomerular Filtration Rate 67
[2019-09-14 08:02] LABS: Anisocytosis 1+ (NONE SEEN); Band Neutrophils % 1 % (0-10); Eosinophils % (Manual) 2 % (0-7); Hypochromasia FEW (NONE SEEN); Lymphocytes % 16 % (15-49); Monocytes % (Manual) 5 % (1-12); Platelet Estimate DECREASED (NORMAL); RBC Morphology ABNORM (NORMAL); Segmented Neutrophils % 76 % (38-78)
[2019-09-14] MEDS: PANTOPRAZOLE 40 MG TABLET PO SCH (08:26)
[2019-09-14] MEDS: FAMOTIDINE 20 MG TABLET PO SCH ×2 (08:26→21:17)
[2019-09-14] MEDS: MULTIVIT,THER IRON,CA,FA & MIN 1 TABLET PO SCH (08:27)
[2019-09-14] MEDS: DOCUSATE SODIUM 100 MG CAPSULE PO SCH ×2 (08:27→21:28)
--- NOTE | 2019-09-14 08:30 | Internal Med Progress Note ---
Medical - PN: Subj Patient information: Note initiated : 09/14/19 at 8:26 am Service Date, if different from initiated Date: [] Patient: Lele Terrell 89 y/o M admitted on 09/13/19 for Rectal Bleeding . Chief Complaint: [] Interval history: Mr. Terrell is a 89 year old M with a history of colon cancer status post left segmental colectomy/dementia who presents with bright red blood per rectum since last 24 hours. Patient symptoms started a few week ago with progressive melena that evolved into robert hematochezia today. Denies any associated pain or cramping or change in stool caliber or weight loss. Patient is due for colonoscopy in 2 weeks by surgery however during presentation the ER GI was consulted and patient was scheduled for upper endoscopy. Hospitalist service was consulted for admission. Patient was seen post upper endoscopy and limited colonoscopy. I discussed the case with Dr. Cordon postprocedure. Patient is due for colonoscopy in 24 hours. He will be kept under observation and will undergo hemoglobin check/transfusion if indicated. He denies associated chest pain, diaphoresis, lightheadedness or vision changes. He further denies nausea vomiting or fever. Is currently on Plavix for history of ischemic cardiomyopathy. Carries a history of peptic ulcer disease and is on PPI. 09/14-patient continues to experience bloody bowels with hemoglobin dropping from 12.5-10. Status post 2 units blood transfusion overnight. Orthostatics positive with blood pressure standing 75 with active dizziness. Continue crystalloids. Ongoing bowel prep. Improved creatinine to 1 - Constitutional Vitals: Vital Signs Temp Pulse Resp BP Pulse Ox 98.8 F 81 20 146/65 96 09/14/19 04:00 09/14/19 06:52 09/14/19 00:01 09/14/19 06:01 09/14/19 06:52 Period Temp Pulse Resp BP Sys/Mcnamara Pulse Ox Last 24 Hr 97.2 F-98.8 F 46-108 7-20 79-154/54-120 89-100 Intake and Output 09/13/19 09/14/19 09/14/19 21:59 05:59 13:59 Intake Total 91 652 Output Total 50 Balance 91 602 Weight 196 lb 11.2 oz Intake & Output: Intake & Output 09/13/19 09/14/19 09/14/19 21:59 05:59 13:59 Intake Total 91 652 Output Total 50 Balance 91 602 Weight 196 lb 11.2 oz Intake: IV 91 2 Sodium Chloride 0.9% 250 ml @ 91 2 20 mls/hr IV .[id number] [facility] Rx#: [id number] Blood Product 650 Output: Void Amount 50 Other: Urine Appearance Clear Urine Color Dark Yellow Stool Size Copious Smear Stool Color Brown Brown Dark Red Blood Stool Consistency Liquid General appearance: no acute distress Exam: Alert and oriented No pallor No labored breathing Nondistended abdomen No anxiety Medical - PN: Obj Da - Labs CBC & Chem 7: 09/14/19 08:00 09/14/19 04:40 Labs: Abnormal Lab Results 09/14/19 09/14/19 09/14/19 04:40 04:40 01:20 RBC 3.36 L Hgb 10.8 L 11.0 L Hct 33.5 L POC Hct MCV RDW 15.9 H Plt Count 136 L Lymph % (Auto) Lymph # (Auto) Platelet Estimate Decreased A RBC Morphology Abnorm A Hypochromasia Few A Anisocytosis 1+ A POC Potassium POC BUN BUN 25 H Creatinine POC Creatinine Calcium 8.4 L Total Protein 5.6 L 09/13/19 09/13/19 09/13/19 19:29 19:29 12:06 RBC Hgb 10.0 L Hct 31.2 L POC Hct 37.0 L MCV RDW Plt Count Lymph % (Auto) Lymph # (Auto) Platelet Estimate RBC Morphology Hypochromasia Anisocytosis POC Potassium 5.6 H POC BUN 35 H BUN Creatinine 1.3 H POC Creatinine 1.3 H Calcium Total Protein 09/13/19 12:06 RBC 3.85 L Hgb 12.5 L Hct 39.1 L POC Hct MCV 101.6 H RDW Plt Count Lymph % (Auto) 11.5 L Lymph # (Auto) 0.74 L Platelet Estimate RBC Morphology Hypochromasia Anisocytosis POC Potassium POC BUN BUN Creatinine POC Creatinine Calcium Total Protein Meds: Medications Acetaminophen (Tylenol) 650 mg PO Q4-6HP PRN; Protocol PRN Reason: Per Pain Protocol/Fever > 101 Atenolol (Tenormin) 50 mg PO BID [facility] Last Admin: 09/13/19 21:06 Dose: Not Given Documented by: Bisacodyl (Dulcolax) 10 mg HI Q2-3DAYS PRN PRN Reason: Constipation Docusate Sodium (Colace) 100 mg PO BID [facility] Last Admin: 09/13/19 21:16 Dose: 100 mg Documented by: Famotidine (Pepcid) 20 mg PO BID [facility] Last Admin: 09/14/19 08:26 Dose: Not Given Documented by: Gabapentin (Neurontin) 300 mg PO TID [facility] Last Admin: 09/13/19 21:16 Dose: 300 mg Documented by: Hydralazine HCl (Apresoline) 10 mg IV Q4-6HP PRN PRN Reason: Hypertension Sodium Chloride (Sodium Chloride 0.9%) 1,000 mls @ 50 mls/hr IV .Q20H [facility] Stop: 09/16/19 07:14 Last Admin: 09/13/19 21:00 Dose: 50 mls/hr Documented by: Acetaminophen (Ofirmev) 650 mg in 65 mls @ 130 mls/hr IV Q6HP PRN; Protocol PRN Reason: Per Pain Protocol/Fever > 101 Magnesium Sulfate (Magnesium Sulfate) 2 gm in 50 mls @ 50 mls/hr IV UD PRN PRN Reason: MG = or < 1.7 Iron Carb/Multivit/Idamay/Folic Acid (Multivitamin W/Minerals) 1 tab PO DAILY [facility] Melatonin (Melatonin 3mg Tablet) 3 mg PO HSP PRN PRN Reason: Insomnia Memantine (Namenda) 5 mg PO BID [facility] Last Admin: 09/13/19 21:16 Dose: 5 mg Documented by: Ondansetron HCl (Zofran Odt) 4 mg SL Q4-6HP PRN; Protocol PRN Reason: Nausea And Vomiting Ondansetron HCl (Zofran) 4 mg IV Q4-6HP PRN; Protocol PRN Reason: Nausea And Vomiting Pantoprazole Sodium (Protonix) 40 mg PO QDAY [facility] Last Admin: 09/14/19 08:26 Dose: Not Given Documented by: Polyethylene Glycol (Miralax) 17 gm PO DAILYP PRN PRN Reason: Constipation Polyethylene Glycol/Electrolytes (Golytely) 4,000 ml PO ONCE [facility] Stop: 09/14/19 10:11 Last Admin: 09/14/19 05:00 Dose: 4,000 ml Documented by: Potassium Chloride (Klor-Con) 40 meq PO DAILYP PRN PRN Reason: K+ < 3.5 Senna/Docusate Sodium (Senna Plus Tablet) 1 tab PO HS [facility] Last Admin: 09/13/19 21:16 Dose: 1 tab Documented by: Sertraline HCl (Zoloft) 25 mg PO QDAY [facility]NA Simvastatin (Zocor) 10 mg PO QPM [facility] Last Admin: 09/13/19 21:16 Dose: 10 mg Documented by: Sodium Chloride (Saline Flush) 10 ml IV Q8 [facility] Last Admin: 09/14/19 05:01 Dose: 10 ml Documented by: Medical - PN: A/P - Time Spent With Patient Total time spent is greater than 50% in coordination of care (as documented) at patient's floor/unit and/or counseling patient: 25 - 35 minutes (1) Lower GI bleed Status: Acute Assessment and plan: * Bright red blood per rectum-status post upper endoscopy and limited colonoscopy. Downtrending hemoglobin status post 2 units transfusion. Ongoing colon prep for repeat colonoscopy today. * History of colon cancer status post colectomy. Patient follows up with surgery * History of ischemic cardiomyopathy/CABG on Plavix/statin * History of hypertension -atenolol on hold in light of GI hemorrhage * Neuropathy on gabapentin * History of dementia on memantine * Anxiety disorder on sertraline * Peptic ulcer disease/GERD on PPI * DNR * Prophylaxis SCDs Plan * Await colonoscopy. * Continue 4 hourly hemoglobin check * Continue as needed PRBC transfusion * Pre-existing well condition management as above * Colon prep per GI Current Visit: Yes Medical - PN: Qual - Stroke Symptom Onset Unknown: No - VTE Deep Vein Thrombosis/Pulmonary Embolism Present on Admission: No
[2019-09-14] MEDS: GABAPENTIN 300 MG CAPSULE PO SCH ×3 (08:37→21:16)
[2019-09-14] MEDS: SERTRALINE 50 MG TABLET PO SCH (08:37)
[2019-09-14] MEDS: ATENOLOL 50 MG TABLET PO SCH ×2 (08:37→21:16)
[2019-09-14] MEDS: MEMANTINE 10 MG TABLET PO SCH ×2 (08:37→21:16)
[2019-09-14] MEDS ORDERED: PROPOFOL 200 MG/20 ML VIAL IV SCH (10:24)
[2019-09-14] MEDS ORDERED: MIDAZOLAM 2 MG/2 ML VIAL IV SCH (10:24)
[2019-09-14] MEDS ORDERED: KETAMINE HCL 50 MG/ML ML IV PRN (10:24)
[2019-09-14] MEDS ORDERED: PEG 3350/NA SULF,BICARB,CL/KCL 4,000 ML ORAL.SOL PO ONE (11:08)
[2019-09-14] MEDS ORDERED: MIDAZOLAM 2 MG/2 ML VIAL ONE ×2 (12:34)
[2019-09-14] MEDS ORDERED: PROPOFOL 20 ML IV ONE (12:35)
[2019-09-14] MEDS: 0.9 % SODIUM CHLORIDE 1,000 ML IV SCH ×2 (18:01→19:06)
[2019-09-14] MEDS: SIMVASTATIN 10 MG TABLET PO SCH (21:16)
[2019-09-14] MEDS: SENNOSIDES/DOCUSATE SODIUM 1 TAB TABLET PO SCH (21:28)
[2019-09-15] MEDS: 0.9 % SODIUM CHLORIDE 10 ML SYRINGE IV SCH ×2 (05:53→13:10)
[2019-09-15 06:27] LABS: Hematocrit 33.7 % (40.1-51.0); Hemoglobin 10.8 g/dL (13.7-17.5); Mean Platelet Volume 10.5 fL (7.4-10.4); Platelet Count 134 K/mcL (140-440); RBC 3.37 M/mcL (4.63-6.08); Red Cell Distribution Width 15.8 % (11.5-14.5)
[2019-09-15] MEDS: DOCUSATE SODIUM 100 MG CAPSULE PO SCH (07:08)
[2019-09-15 07:19] LABS: Chloride 106 mmol/L (96-108)
[2019-09-15 07:28] LABS: ALT/SGPT 15 U/l (0-40); AST/SGOT 23 U/l (0-37); Albumin 3.6 gm/dL (3.2-5.2); Albumin/Globulin Ratio 1.3 (1.0-2.3); Alkaline Phosphatase 51 U/L (39-117); Bilirubin,Direct < 0.2 mg/dL (0.0-0.3); Bilirubin,Total 0.5 mg/dL (0.0-1.0); Blood Urea Nitrogen 15 mg/dl (8-23); Carbon Dioxide 21 mmol/L (22-30); Globulin 2.7 gm/dL (2.2-3.7); Glomerular Filtration Rate 67; Glucose 71 mg/dL (70-105); Lactate Dehydrogenase 182 U/L (94-250); Triglycerides 127 mg/dl (<150)
[2019-09-15 08:08] LABS: Eosinophils % (Manual) 7 % (0-7); Lymphocytes % 9 % (15-49); Monocytes % (Manual) 9 % (1-12); Myelocytes % 1 % (0-0); Platelet Estimate DECREASED (NORMAL); Polychromasia FEW (NONE SEEN); RBC Morphology ABNORM (NORMAL); Segmented Neutrophils % 74 % (38-78)
[2019-09-15] MEDS: SERTRALINE 50 MG TABLET PO SCH (09:01)
[2019-09-15] MEDS: PANTOPRAZOLE 40 MG TABLET PO SCH (09:01)
[2019-09-15] MEDS: ATENOLOL 50 MG TABLET PO SCH (09:01)
[2019-09-15] MEDS: GABAPENTIN 300 MG CAPSULE PO SCH ×2 (09:01→15:06)
[2019-09-15] MEDS: MULTIVIT,THER IRON,CA,FA & MIN 1 TABLET PO SCH (09:01)
[2019-09-15] MEDS: FAMOTIDINE 20 MG TABLET PO SCH (13:09)
[2019-09-15] MEDS: 0.9 % SODIUM CHLORIDE 1,000 ML IV SCH (13:09)
[2019-09-15] MEDS: MEMANTINE 10 MG TABLET PO SCH (13:09)
--- NOTE | 2019-09-15 13:29 | Colonoscopy Procedure Note ---
Colonoscopy Procedure Notes - Procedure Information Patient information: Note initiated : 09/15/19 at 1:27 pm Service Date: 09.14.2019 Patient: Lele Terrell 89 y/o M admitted on 09/13/19 for Rectal Bleeding . Pre-op diagnosis general: GI bleed. Post-op diagnosis general: GI bleed. Procedure: Colonoscopy Procedure narrative: The procedure, alternatives and risks were discussed with the patient and the patient's questions were answered. With endoscopist-administered IV sedation, the Olympus colonoscope was introduced into the rectum and advanced to the cecum. Ileocecal valve was identified, and intubated. Special effort was made to examine as much of the terminal ileum as possible. At least 30 to 40 cm of the terminal ileum were examined and were normal. Anastomosis in the mid sigmoid colon was healthy and patent. Multiple diverticuli were seen. The colon otherwise appeared normal. There was no active bleeding and no bleeding site was identified. Assessment: GI bleed.
--- NOTE | 2019-09-15 14:23 | Discharge Summary ---
Medical - DS: Prov Patient information: Note initiated : 09/15/19 at 2:21 pm Service Date, if different from initiated Date: [] Patient: Lele Terrell 89 y/o M admitted on 09/13/19 for Rectal Bleeding . Chief Complaint: [] Date of admission: 09/13/19 19:01 Discharge date: 09/15/19 Primary care physician: Timothy Kitchen Consults: 09/13/19 13:07 Consult to Physician [CONS] Stat Comment: Consulting Provider: Georgia Burgess Reason For Exam: Physician to Consult 09/14/19 13:07 Consult to Physician [CONS] Routine Comment: Consulting Provider: Stan Castro Reason For Exam: Physician to Consult Medical - DS: Meds - Discharge Medications Active and Home Medications: Home Medications Magnesium Hydroxide [Milk of Magnesia] 30 ml PO BID 04/12/18 [History Confirmed 09/13/19 Last Taken 05/15/18] Memantine [Namenda] 5 mg PO BID 04/13/18 [History Confirmed 09/13/19 Last Taken 05/15/18] pantoprazole 40 mg tablet,delayed release 40 mg PO QDAY #90 tab 11/22/18 [Rx Confirmed 09/13/19 Last Taken Unknown] atenolol 50 mg tablet 50 mg PO BID #180 tab 03/28/19 [Rx Confirmed 09/13/19 Last Taken Unknown] simvastatin 10 mg tablet 10 mg PO QPM #90 tab 06/23/19 [Rx Confirmed 09/13/19 Last Taken Unknown] gabapentin 100 mg capsule 300 mg PO TID 90 Days #810 cap 08/25/19 [Rx Confirmed 09/13/19 Last Taken Unknown] sertraline 25 mg tablet 25 mg PO QDAY 30 Days #30 tab 09/01/19 [Rx Confirmed 09/13/19 Last Taken Unknown] Clopidogrel Bisulfate [Plavix] 75 mg PO DAILY 09/13/19 [History Confirmed 09/13/19 Last Taken Unknown] Medical - DS: Hosp Hospital Course: Discharge diagnosis * Bright red blood per rectum-status post upper and lower endoscopy. no bleeding identified. Status post 2 units blood transfusion. * Blood loss anemia sec secondary to GI bleed. Improved post 2 units blood transfusion * History of colon cancer status post colectomy. Continue follow-up outpatient with surgery * History of ischemic cardiomyopathy/CABG on Plavix/statin * History of hypertension -restart home dose atenolol * Neuropathy on gabapentin * History of dementia on memantine * Anxiety disorder on sertraline * Peptic ulcer disease/GERD on PPI Brief hospital course Mr. Terrell is a 89 year old M with a history of colon cancer status post left segmental colectomy/dementia who presents with bright red blood per rectum since last 24 hours. Patient symptoms started a few week ago with progressive melena that evolved into robert hematochezia today. Denies any associated pain or cramping or change in stool caliber or weight loss. Patient is due for colonoscopy in 2 weeks by surgery however during presentation the ER GI was consulted and patient was scheduled for upper endoscopy. Hospitalist service was consulted for admission. Patient was seen post upper endoscopy and limited colonoscopy. I discussed the case with Dr. Cordon postprocedure. Patient is due for colonoscopy in 24 hours. He will be kept under observation and will undergo hemoglobin check/transfusion if indicated. He denies associated chest pain, diaphoresis, lightheadedness or vision changes. He further denies nausea vomiting or fever. Is currently on Plavix for history of ischemic cardiomyopathy. Carries a history of peptic ulcer disease and is on PPI. 09/14-patient continues to experience bloody bowels with hemoglobin dropping from 12.5-10. Status post 2 units blood transfusion overnight. Orthostatics positive with blood pressure standing 75 with active dizziness. Continue crystalloids. Ongoing bowel prep. Improved creatinine to 1 09/15-patient doing well. No further bleed over last 12 hours. Requesting discharge. Advised to follow-up with primary care physician and return to ER if bloody stools noted. Discharge instructions as below Discharge diagnosis: . - Time Spent with Patient Total time spent providing and/or coordinating discharge services: Greater than 30 minutes Medical - DS: Exam - Constitutional Vitals: Vital Signs Temp Pulse Resp BP Pulse Ox 09/15/19 13:01 98.0 F 18 135/69 97 09/15/19 12:56 16 155/86 96 09/15/19 10:01 98.4 F 132/103 96 09/15/19 08:01 152/78 95 09/15/19 08:00 97.2 F 76 18 127/96 97 09/15/19 07:46 127/96 94 09/15/19 06:01 140/113 98 09/15/19 04:01 147/71 97 09/15/19 02:01 122/55 98 09/15/19 00:01 98.6 F 128/70 92 09/14/19 22:01 131/68 96 09/14/19 21:26 133/65 95 09/14/19 19:01 122/68 93 09/14/19 18:16 98.6 F 16 131/72 97 09/14/19 18:01 18 83/69 95 09/14/19 17:43 17 132/62 97 09/14/19 17:15 94 09/14/19 16:32 98.9 F 18 139/67 98 09/14/19 14:31 132/78 Intake and Output 09/15/19 09/15/19 09/15/19 05:59 13:59 21:59 Intake Total 1000 Output Total 400 Balance 600 Intake: IV 1000 Sodium Chloride 0.9% 1,000 ml @ 1000 50 mls/hr IV .Q20H [facility] Rx#: [id number] Output: Stool 400 Other: Urine Appearance Clear Urine Color Bright Yellow Urine Odor Normal Stool Size Copious Stool Color Brown Stool Consistency Liquid Medical - DS: Data Labs on day of discharge: Labs from last 24 hours 09/15/19 09/15/19 09/14/19 04:40 04:40 15:58 WBC 5.0 RBC 3.37 L Hgb 10.8 L 11.8 L Hct 33.7 L MCV 100.0 MCH 32.0 MCHC 32.0 RDW 15.8 H Plt Count 134 L MPV 10.5 H Total Counted 100 Seg Neutrophils % 74 Band Neutrophils % Not Reportable Lymphocytes % 9 L Monocytes % (Manual) 9 Eosinophils % (Manual) 7 Myelocytes % 1 H Platelet Estimate Decreased A RBC Morphology Abnorm A Polychromasia Few A Sodium 142 Potassium 4.1 Chloride 106 Carbon Dioxide 21 L Anion Gap 15.0 BUN 15 Creatinine 1.0 GFR Calculation 67 Glucose 71 Uric Acid 7.0 Calcium 9.0 Phosphorus 3.0 Magnesium 1.9 Total Bilirubin 0.5 Direct Bilirubin < 0.2 GGT 11 AST 23 ALT 15 Alkaline Phosphatase 51 Lactate Dehydrogenase 182 Total Protein 6.3 Albumin 3.6 Globulin 2.7 Albumin/Globulin Ratio 1.3 Triglycerides 127 09/14/19 12:15 WBC RBC Hgb 11.0 L Hct MCV MCH MCHC RDW Plt Count MPV Total Counted Seg Neutrophils % Band Neutrophils % Lymphocytes % Monocytes % (Manual) Eosinophils % (Manual) Myelocytes % Platelet Estimate RBC Morphology Polychromasia Sodium Potassium Chloride Carbon Dioxide Anion Gap BUN Creatinine GFR Calculation Glucose Uric Acid Calcium Phosphorus Magnesium Total Bilirubin Direct Bilirubin GGT AST ALT Alkaline Phosphatase Lactate Dehydrogenase Total Protein Albumin Globulin Albumin/Globulin Ratio Triglycerides Medical - DS: A/P - Patient/Caregiver Discharge Instructions Activity: increase activity as tolerated Diet: Regular Diet Additional Instructions: Return to ER if bloody stools noted Follow-up PCP in 5 to 7 days - Problem Maintenance (1) Lower GI bleed Status: Acute - Follow up Plan Follow up with: Timothy Kitchen PA-C [Primary Care Provider] - 09/22/19 2:15 pm (Please check in at 2:00 pm) Fab Robb MD [Physician] - 09/22/19 3:45 pm () Disposition: Home, Self-Care Care Plan Goals: This discharge packet is provided to you to help keep you informed about your care. We want to ensure you get everything you need when you go home. You will also be receiving a call from us in a few days to follow up with you and see how you are doing since your discharge. This gives us a chance to listen to any concerns you maybe experiencing since you were discharged or any additional needs you may have, as well as providing us feedback on your care experience. We strive to always provide excellent care and thank you for your feedback and for choosing [facility]. Prognosis: Serious Rehab Potential: Fair I certify that the patient requires SNF services: No Medical - DS: Qual - VTE Deep Vein Thrombosis/Pulmonary Embolism Present on Admission: No
== END 2019-09-15 15:45 | disposition home or self-care (01) ==
LOC: ED 11:44 → ICU 17:07 → SUR 17:07 → ED 17:17 → INTOOBSV 19:01 → ICU 19:01
PROVIDERS: ADMIT Internal Medicine; ATTEND Internal Medicine